=== PATIENT | male | born 1935 | race Caucasian/White ===

== ENCOUNTER 2017-10-29 08:00 | Outpatient (RCR) | payer MEDICARE, SELFPAY ==
--- NOTE | 2017-10-01 09:33 | HMH.PTOPEV ---
Rehab Outpatient Evaluation Rehab OP Evaluation Start: 10/01/17 08:34 Freq: Status: Active Protocol: Document 10/01/17 08:34 DASHAMIRIAM (Rec: 10/01/17 09:32 LOWELLHORTENCIA [id number]) Electronically Signed By Clarke Sellers PT 10/01/17 08:34 Outpatient Therapy Subjective History Subjective History This is the initial Physical Therapy evaluation for Juve Rosas. Pt is an 82 y/o male referred to PT for c/o LBP and pain into BLE. Pt rep orts pain began ~ 2 wks ago. Pt reports he was moving a large TV anfd its weight almost brought him to his knees . Pt reports he started having pain the next day. Pt reports no pain while sitting but difficulty standing straight and being on feet. Chief Complaint Pain Stiff Paresthesia Weakness Symptom Type Ache Throb Sharp Burning Numbness Symptoms Relieved By Rest/Positioning Symptoms Aggravated By Standing Physical Activity Walking Prior Functional Limitations None Current Functional Limitations Standing Recreation Activity Walking Symptom Description Intermittent Activity Dependent Level of pain today (0-10) 0 Pain scale - at its best (0-10) 0 Pain scale - at its worst (0-10) 8 Lumbopelvic Eval Posture Thoracic Spine Posture Standing Position Increased Kyphosis Lumbar Spine Posture Standing Position Flattened Assistive device Assistive Devices None / NA Palapation tenderness bilateral thoracic spinal tenderness No lumbar spinal tenderness No paraspinal tenderness No buttock tenderness No Range of Motion Lumbar Spine Active Flexion Range of 95 Motion (degrees) Lumbar Spine Active Extension Range of 10 w/ pain Motion (degrees) Left Lumbar Spine Lateral Flexion Active 20 Range of Motion (degrees) Right Lumbar Spine Lateral Flexion 20 Active Range of Motion (degrees) Lumbar Spine ROM Reason Not Measured Within Functional Limits Special Tests Lumbar Spine Screen Positive Forwar
== END 2017-10-29 08:01 | disposition home or self-care (01) ==
LOC: PT 08:00
PROVIDERS: Family Provider Nurse Practitioner; Visit Provider Family Medicine
DX: M48.062 Spinal stenosis, lumbar region with neurogenic claudication (principal)
CPT/HCPCS: 97010; 97014; 97110; 97140; G0283

== ENCOUNTER → 2017-11-08 15:15 | Outpatient (CLI) | payer MEDICARE, SELFPAY ==
--- NOTE | 2017-11-08 15:18 | MR_ITS ---
MR lumbar spine wo con, MR 3-d myelogram/MRCP HISTORY: PT states low back pain X3 weeks. Bilateral Leg pain, numbness and tingling. ITS.REASON: LUMBAR STENOSIS WITH NEUROGENIC CLAUDIATION ORDERING PHYSICIAN: Andriy Ludwig MD PATIENT AGE: 82 years TECHNIQUE: Standard multiplanar multiecho sequences are performed without contrast. 3-D MIP and myelographic images are also rendered and reviewed FINDINGS: There is normal alignment. The spinal cord ends at the L1 level. T11-T12, T12-L1 have an unremarkable appearance. L1-L2: Mild degenerative disc disease. L2-L3: Mild degenerative disc disease with minimal bulging disc. L3-L4: Mild degenerative disc disease. L4-L5: There is mild concentric bulging disc. There is associated facet and ligamentum hypertrophy with resultant canal stenosis with canal measuring 6 mm in transverse dimension. There is severe bilateral lateral recess and moderate foraminal narrowing. A small amount fluid is present within the facet joint. L5-S1: Degenerative disc disease. No disc herniation. IMPRESSION: Severe canal stenosis at L4-L5 secondary to mild bulging disc and severe facet and ligamentum hypertrophy with severe bilateral lateral recess and moderate foraminal narrowing
== END ==
PROVIDERS: Family Provider Nurse Practitioner; PCP Family Medicine; Visit Provider Family Medicine
DX: M48.062 Spinal stenosis, lumbar region with neurogenic claudication (principal)
CPT/HCPCS: 72148; 76376

== ENCOUNTER → 2017-12-28 06:18 | Outpatient (CLI) | payer MEDICARE, SELFPAY ==
--- NOTE | 2017-12-28 06:25 | XR_ITS ---
XR chest 2V HISTORY: ITS.REASON: BRONCHITIS ORDERING PHYSICIAN: Nilsa Pantoja PATIENT AGE: 82 years COMPARISON: 02/13/2016 FINDINGS: Prior CABG with borderline cardiomegaly. No lobar consolidation or collapse. Lungs are clear. No acute bony anomalies. IMPRESSION: Prior CABG with cardiomegaly. No change with no acute finding
== END ==
PROVIDERS: PCP Nurse Practitioner; Visit Provider Nurse Practitioner
DX: J40 Bronchitis, not specified as acute or chronic (principal)
CPT/HCPCS: 71046

== ENCOUNTER 2018-01-07 21:06 | Inpatient (IN) ==
[2018-01-07 21:39] LABS: Basophils % 0.1 % (0.1-2.0); Eosinophils # 0.1 K/mm3 (0.0-0.4); Eosinophils % 0.3 % (0.1-12.0); Hemoglobin 12.8 g/dL (14.1-18.0); Lymphocytes # 1.2 K/mm3 (0.7-4.5); Lymphocytes % 6.1 K/mm3 (10-50); Mean Corpuscular HGB Conc 31.3 g/dL (31.8-35.4); Mean Corpuscular Volume 99.1 fl (80-94); Mean Platelet Volume 7.8 fl (7.4-10.4); Monocytes # 0.7 K/mm3 (0.1-1.0); Monocytes % 3.5 % (1.7-9.3); Platelet Count 220 K/mm3 (142-424); Red Blood Count 4.13 M/mm3 (4.60-6.20); Red Cell Distribution Width 15.6 % (11.5-17.5)
[2018-01-07 22:11] LABS: Alanine Aminotransferase 48 U/L (12-78); Albumin Level 3.5 gm/dL (3.4-5.0); Albumin/Globulin Ratio 1.1 (1.1-1.8); Alkaline Phosphatase 46 U/L (46-116); Anion Gap 15.9 mEq/L (5-15); Aspartate Amino Transferase 27 U/L (15-37); Bilirubin,Total 0.7 mg/dL (0.2-1.0); Calcium 8.3 mg/dL (8.5-10.1); Carbon Dioxide 27 mmol/L (21.0-32.0); Chloride 99 mmol/L (98-107); Creatine Kinase 119 U/L (39-308); Globulin 3.3 gm/dl (1.3-3.2); Glucose 122 mg/dL (74-106); Potassium 3.9 mmoL/L (3.5-5.1); Sodium 138 mmol/L (136-145); Total Protein,Serum 6.8 gm/dL (6.4-8.2)
[2018-01-07 22:18] LABS: Blood Urea Nitrogen 100 mg/dL (7-18)
[2018-01-07 22:33] LABS: Microscopic, Urine URINE MICROSCOPIC (MICROSCOPIC)
[2018-01-07 22:36] LABS: Appearance,Urine CLEAR (Clear); Bilirubin,Urine Negative (Negative); Blood, Urine Negative (Negative); Color,Urine YELLOW (Yellow); Glucose,Urine (UA) Negative (Negative); Ketones,Urine Negative (Negative); Leukocyte Esterase,Urine Negative (Negative); Protein,Urine Negative (Negative); Urobilinogen,Urine 0.2 EU/dl (0.2)
--- NOTE | 2018-01-07 22:46 | Emergency Department Note ---
ED Disposition Clinical Impression: RBBB, Septic shock CAP (community acquired pneumonia) Qualifiers: Laterality: left Lung location: lower lobe of lung Qualified Code(s): J18.1 - Lobar pneumonia, unspecified organism Renal failure Qualifiers: Renal failure chronicity: acute on chronic Acute renal failure type: unspecified Chronic kidney disease stage: unspecified stage Qualified Code(s): N17.9 - Acute kidney failure, unspecified; N18.9 - Chronic kidney disease, unspecified Disposition: Admitted As Inpatient Condition on Discharge: Serious - Critical Care Critical Care Time: No Attestation: On 01/07/18, the high probability of a clinically significant, sudden or life threatening deterioration of the following system(s) required my full and direct attention, intervention and personal management. The time I documented below is in addition to time spent performing reported procedures but includes the following listed in this critical care notation. Medical Decision Making - Medical Records Medical records reviewed: Yes: I reviewed the patient's medical records. - Maximus Inquiry Pt receiving controlled substance: No Vital Signs: 01/07/18 21:07 01/07/18 21:16 01/07/18 21:37 Temperature 98.9 F Temperature Source Oral Pulse Rate [Right Radial] 94 H 117 H 99 H Respiratory Rate 18 20 18 Blood Pressure [Right Arm] 119/78 129/71 101/60 Blood Pressure Mean [Right Arm] 91 90 73 Blood Pressure Position [Right Arm] 02 Sat by Pulse Oximetry 93 L 91 L 94 L Oxygen Delivery Method Room Air 01/07/18 22:07 01/07/18 22:37 01/07/18 22:45 Temperature Temperature Source Pulse Rate [Right Radial] 113 H 104 H 109 H Respiratory Rate 20 18 20 Blood Pressure [Right Arm] 94/49 88/49 85/45 Blood Pressure Mean [Right Arm] 64 62 58 Blood Pressure Position [Right Arm] Sitting 02 Sat by Pulse Oximetry 94 L 93 L 93 L Oxygen Delivery Method Room Air - Lab Data Lab results reviewed: Yes: I reviewed the patient's lab results. Lab Results 01/07/18 21:25: WBC 20.0 H, RBC 4.13 L, Hgb 12.8 L, Hct 41.0 L, MCV 99.1 H, MCH 31.0, MCHC 31.3 L, RDW 15.6, Plt Count 220, MPV 7.8, Neut % (Auto) 90.0 H, Lymph % (Auto) 6.1 L, [place] % (Auto) 3.5, Eos % (Auto) 0.3, Baso % (Auto) 0.1, Neut # (Auto) 18.0 H, Lymph # (Auto) 1.2, [place] # (Auto) 0.7, Eos # (Auto) 0.1, Baso # (Auto) 0.0, Total Counted 100, Neutrophils % (Manual) 85 H, Lymphocytes % (Manual) 15, Platelet Estimate Normal, RBC Morphology Not Reportable, Anisocytosis 1+ 01/07/18 21:25: Sodium 138, Potassium 3.9, Chloride 99, Carbon Dioxide 27, Anion Gap 15.9 H, BUN 100 H, Creatinine 3.34 H, Estimated Creat Clear 23, Estimated GFR 18 L*, Est GFR ( Amer) 22 L, Glucose 122 H, Calcium 8.3 L, Total Bilirubin 0.7, AST 27, ALT 48, Alkaline Phosphatase 46, Total Creatine Kinase 119, CK-MB (CK-2) 3.6, CK-MB (CK-2) Rel Index 3.0, Troponin I < 0.02, Total Protein 6.8, Albumin 3.5, Globulin 3.3 H, Albumin/Globulin Ratio 1.1 01/07/18 21:25: Lactic Acid 3.6 H 01/07/18 21:25: POC Glucose 118 H 01/07/18 22:30: Urine Color Yellow, Urine Appearance Clear, Urine pH 5.0, Ur Specific [place] 1.020, Urine Protein Negative, Urine Glucose (UA) Negative, Urine Ketones Negative, Urine Blood Negative, Urine Nitrate Negative, Urine Bilirubin Negative, Urine Urobilinogen 0.2, Ur Leukocyte Esterase Negative, Urine WBC 3-5, Ur Squamous Epith Cells 3-5, Urine Bacteria 1+ Result diagrams: 01/07/18 21:25 01/07/18 21:25 Orders (Tests/Meds): ED MEDICATIONS Generic Name Dose Route Start Last Admin Trade Name Freq PRN Reason Stop Dose Admin Sodium Chloride 2,760 mls @ 1,380 mls/hr 01/07/18 22:38 01/07/18 22:43 Sod Chlor 0.9% 1000ml Bag 30 ml/kg infuse over 2 hr (2760 ml) 01/08/18 00: 37 1,380 mls/hr IV Administration .Q2H ONE Azithromycin 500 mg/ Sodium 250 mls @ 250 mls/hr 01/07/18 23:00 Chloride IV 01/21/18 22:59 Q24H TJ Protocol Ceftriaxone Sodium 1 gm/ 50 mls @ 100 mls/hr 01/07/18 23:00 01/07/18 22:50 Sodium Chloride IV 01/21/18 22:59 100 mls/hr Q24H TJ Administration Protocol ORDERS Category Date Time Status XR chest 2V Stat Exams 01/07/18 21:26 Taken Blood Culture Stat Micro 01/07/18 21:37 Ordered - Radiology Data #1 Image(s): Chest Image Reviewed: Yes I reviewed the patient's radiology image Preliminary Findings: Abnormal (changes lt base ) - ECG Data Tracing #1 I reviewed this ECG and interpreted as documented below: Arrhythmias present: sinus tach Ischemic changes: non-specific ST-T wave changes Conduction abnormalities present: RBBB ECG compared to prior tracings: this ECG reveals significant changes - Tissue Perfus/Sepsis Re-Eval Reperfusion Exam Performed: Yes Date Performed: 01/07/18 Time Performed: 23:10 Sepsis Follow-Up: Yes: Respiratory exam, Cadiovascular exam, Capillary refill, Peripheral pulse strength, Skin exam Resp/SOB HPI - General Chief Complaint: Altered Mental Status Stated Complaint: Chills, SOA Time Seen by Provider: 01/07/18 22:37 Mode of Arrival: Wheelchair Limitations: Physical Limitations Description of Symptoms (Recalled from ER Triage Doc. by RN): pt recently dx with pneumonia. states that when she got home today that patient was "nonresponsive." states that he has been on a lot of pain meds recently that "he is not used to due to back pain. states the patient was in his chair and he was breathing labored and when she tried to wake him up he would not respond. 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 and episode of sob and dec level of responsiveness for a few minutes recently finished levofloxin for cap- he has no chest pain but family report recently abn renal function tests MD Complaint: shortness of breath, cough Onset (ago): hour(s) Context: recent illness Severity: moderate Relieving factors: nothing Known history of: diabetes, recurrent pneumonia Associated symptoms: cough, syncope Treatment prior to arrival: none - Related Data Home oxygen amount: none Home Medications Medication Instructions Recorded Confirmed Allopurinol [Allopurinol 300mg 300 mg PO DAILY 01/07/18 01/07/18 tablet] Aspirin [Aspir 81] 81 mg PO DAILY 01/07/18 01/07/18 Cholecalciferol (Vitamin D3) 2,000 unit PO DAILY 01/07/18 01/07/18 [Vitamin D3 1,000 Unit Cap] Enalapril Maleate 40 mg PO DAILY 01/07/18 01/07/18 Furosemide [Furosemide 20mg Tab] 40 mg PO DAILY 01/07/18 01/07/18 Gabapentin [Gabapentin 100mg Cap] 100 mg PO TID 01/07/18 01/07/18 Glucosamine/D3/Boswellia Caroline 1 each PO DAILY 01/07/18 01/07/18 [Osteo Bi-Flex Caplet] Labetalol HCl [Normodyne 100mg 400 mg PO DAILY 01/07/18 01/07/18 tablet] Pravastatin Sodium [Pravachol] 40 mg PO DAILY 01/07/18 01/07/18 Tramadol HCl [Ultram Take Home 50 mg PO BIDP PRN 01/07/18 01/07/18 Pack 50mg (10)] hydroCHLOROthiazide 12.5 mg PO DAILY 01/07/18 01/07/18 [Hydrochlorothiazide 12.5mg Tab] Allergies Allergy/AdvReac Type Severity Reaction Status Date / Time No Known Allergies Allergy Verified 01/07/18 21:25 [facility] History I have reviewed the patient's past medical history: Yes Medical History: Reports:: Diabetes Mellitus Type 2 Denies:: Cancer, MRSA Amputation: No Fractures: No - Social History Smoking Status: Former smoker Alcohol Intake: never - Psychiatric History Expresses thoughts of harming self/others: None Suicide Plan Description: No Plan ROS Obtained: Yes All systems reviewed & no additional complaints - Constitutional Constitutional: Denies fever(s) - Eyes Eyes: Denies change in vision - ENT Ears, Nose, Mouth, and Throat: Denies sore throat - Cardiovascular Cardiovascular: Denies chest pain, Reports dyspnea - Respiratory Respiratory: Yes cough, No coughing up blood - Gastrointestinal Gastrointestingal: Denies: abdominal pain - Genitourinary Male Genitourinary: Denies hematuria - Musculoskeletal Musculoskeletal: Denies joint pain, Denies joint swelling - Integumentary/Breasts Skin/Breast: Denies rash - Neurologic Neurologic: Reports dizziness, Denies headache(s), Denies seizure-like activity Physical Exam - General General appearance: alert, in no apparent distress - Head Head exam: normocephalic - Eye Eye exam: Present: PERRL, EOMI. Absent: scleral icterus - ENT ENT exam: Present: mucous membranes dry - Neck Neck exam: Present: trachea midline - Respiratory Respiratory exam: Present: other (bilat rhonchi and dec bs bilat ). Absent: respiratory distress - Cardiovascular Cardiovascular exam: Present: regular rate, systolic murmur, +S4 - Abdominal Exam Abdominal exam: Present: soft - Extremities Exam Extremities exam: Present: pedal edema. Absent: calf tenderness - Neurological Exam Neurological exam: Present: alert, oriented X3, CN II-XII intact - Psychiatric Psychiatric exam: Present: normal affect - Skin Skin exam: Absent: rash
[2018-01-07 22:54] LABS: Lymphocytes % 15 % (10-50); Neutrophils % 85 % (42-76); Total Cells Counted 100
[2018-01-07 22:55] LABS: Anisocytosis 1+
[2018-01-07 23:00] LABS: Bacteria,Urine 1+ /lpf
[2018-01-08 06:02] LABS: Basophils % 0.1 % (0.1-2.0); Eosinophils % 0.2 % (0.1-12.0); Hematocrit 36.2 % (42.0-52.0); Lymphocytes # 1.2 K/mm3 (0.7-4.5); Lymphocytes % 5.6 K/mm3 (10-50); Mean Corpuscular HGB Conc 30.6 g/dL (31.8-35.4); Mean Corpuscular Hemoglobin 30.4 pg (27.0-31.2); Mean Corpuscular Volume 99.3 fl (80-94); Mean Platelet Volume 7.8 fl (7.4-10.4); Monocytes # 0.9 K/mm3 (0.1-1.0); Monocytes % 4.1 % (1.7-9.3); Neutrophils # 19.4 K/mm3 (1.8-7.8); Platelet Count 175 K/mm3 (142-424); Red Blood Count 3.65 M/mm3 (4.60-6.20); White Blood Count 21.5 K/mm3 (4.8-10.8)
[2018-01-08 06:22] LABS: Hemoglobin 11.2 g/dL (14.1-18.0)
[2018-01-08 06:26] LABS: Anion Gap 12.9 mEq/L (5-15); Calcium 7.7 mg/dL (8.5-10.1); Potassium 3.9 mmoL/L (3.5-5.1)
--- NOTE | 2018-01-08 07:24 | History & Physical Report ---
*Admission Date: 01/07/18 *Chief complaint: Heavy breathing, altered level of consciousness *History of present illness: 82-year-old male brought to the emergency department by his yesterday evening when he was noticed at home to be breathing rather heavily with an altered level of consciousness. Patient was sleeping but his thought he was having difficulty breathing. She noticed some abnormal movements but does not believe these were seizures. She was able to awaken him and he walks to their truck under his own power. He was brought to the emergency department for further workup. Patient admitted to episodes of shortness of breath and has been treated for pneumonia recently. His white blood cell count was elevated with significant change in renal function and chest x-ray suspicious for left lower lobe infiltrate. Patient was admitted on IV fluids and IV antibiotics. This morning he states "I am ready to go". He denies any shortness of breath this morning and has rested well overnight without supplemental oxygen. Despite his recent illness patient has been exercising here at the [employer] [place] on a daily basis. He is currently also battling lumbar spinal stenosis for which he takes both gabapentin and tramadol. Previously he was taking excessively large doses of NSAIDs but it is no longer doing that. [facility] History I have reviewed the patient's past medical history: Yes Medical History: Reports:: Arrhythmia, Diabetes Mellitus Type 2, Heart Murmur, Hyperlipidemia, Hypertension, Myocardial Infarction Denies:: Cancer, MRSA Other Medical History: Reports: Arthritis Other Surgeries: Yes: Angiogram, CABG, Cardiac Catheterization, Cardiac Surgery , Coronary Stent, Open Heart Surgery Amputation: No Fractures: No - *Social History Educational Level: Completed High School Smoking Status: Former smoker Tobacco Type: cigarettes Smoking End Date: Alcohol Intake: never Occupational Status: retired Housing: house Household Members: spouse - Psychiatric History Expresses thoughts of harming self/others: None Suicide Plan Description: No Plan *Family Hx:: Cancer, Coronary Artery Disease, Diabetes, Heart Attack, Hyperlipidemia, Hypertension Review of Systems - Review of Systems Review of systems:: pertinent systems reviewed and negative unless documented below - Constitutional Denies anorexia, Denies body ache(s), Denies chills, Denies fever(s) - *Cardiovascular Denies chest pain, Denies chest pain at rest - *Respiratory Reports cough, Reports shortness of breath - *Neurologic Reports dizziness, Denies headache(s), Denies seizure-like activity Meds Home Medications Medication Instructions Recorded Confirmed Type Allopurinol [Allopurinol 300mg 300 mg PO DAILY 01/07/18 01/07/18 History tablet] Aspirin [Aspir 81] 81 mg PO DAILY 01/07/18 01/07/18 History Cholecalciferol (Vitamin D3) 2,000 unit PO DAILY 01/07/18 01/07/18 History [Vitamin D3 1,000 Unit Cap] Enalapril Maleate 40 mg PO DAILY 01/07/18 01/07/18 History Furosemide [Furosemide 20mg Tab] 20 mg PO BID 01/07/18 01/08/18 History Gabapentin [Gabapentin 100mg Cap] 100 mg PO TID 01/07/18 01/08/18 History Glucosamine/D3/Boswellia Caroline 2 each PO DAILY 01/07/18 01/07/18 History [Osteo Bi-Flex Caplet] Labetalol HCl [Normodyne 100mg 200 mg PO BID 01/07/18 01/08/18 History tablet] Pravastatin Sodium [Pravachol] 40 mg PO DAILY 01/07/18 01/07/18 History Tramadol HCl [Ultram Take Home 50 mg PO BIDP PRN 01/07/18 01/08/18 History Pack 50mg (10)] hydroCHLOROthiazide 12.5 mg PO DAILY 01/07/18 01/08/18 History [Hydrochlorothiazide 12.5mg Tab] Allergies Allergy/AdvReac Type Severity Reaction Status Date / Time No Known Allergies Allergy Verified 01/07/18 21:25 Exam Vital signs and Labs for Last 24 Hours: Temp Pulse Resp BP Pulse Ox 98.6 F 94 H 18 112/64 100 01/08/18 04:00 01/08/18 04:00 01/08/18 04:00 01/08/18 04:00 01/08/18 04:00 Laboratory Results - last 24 hr 01/07/18 21:25: WBC 20.0 H, RBC 4.13 L, Hgb 12.8 L, Hct 41.0 L, MCV 99.1 H, MCH 31.0, MCHC 31.3 L, RDW 15.6, Plt Count 220, MPV 7.8, Neut % (Auto) 90.0 H, Lymph % (Auto) 6.1 L, [place] % (Auto) 3.5, Eos % (Auto) 0.3, Baso % (Auto) 0.1, Neut # (Auto) 18.0 H, Lymph # (Auto) 1.2, [place] # (Auto) 0.7, Eos # (Auto) 0.1, Baso # (Auto) 0.0, Total Counted 100, Neutrophils % (Manual) 85 H, Lymphocytes % (Manual) 15, Platelet Estimate Normal, RBC Morphology Not Reportable, Anisocytosis 1+ 01/07/18 21:25: Sodium 138, Potassium 3.9, Chloride 99, Carbon Dioxide 27, Anion Gap 15.9 H, BUN 100 H, Creatinine 3.34 H, Estimated Creat Clear 23, Estimated GFR 18 L*, Est GFR ( Amer) 22 L, Glucose 122 H, Calcium 8.3 L, Total Bilirubin 0.7, AST 27, ALT 48, Alkaline Phosphatase 46, Total Creatine Kinase 119, CK-MB (CK-2) 3.6, CK-MB (CK-2) Rel Index 3.0, Troponin I < 0.02, Total Protein 6.8, Albumin 3.5, Globulin 3.3 H, Albumin/Globulin Ratio 1.1 01/07/18 21:25: Lactic Acid 3.6 H 01/07/18 21:25: POC Glucose 118 H 01/07/18 22:30: Urine Color Yellow, Urine Appearance Clear, Urine pH 5.0, Ur Specific [place] 1.020, Urine Protein Negative, Urine Glucose (UA) Negative, Urine Ketones Negative, Urine Blood Negative, Urine Nitrate Negative, Urine Bilirubin Negative, Urine Urobilinogen 0.2, Ur Leukocyte Esterase Negative, Urine WBC 3-5, Ur Squamous Epith Cells 3-5, Urine Bacteria 1+ 01/08/18 00:00: Troponin I 0.02 01/08/18 02:05: Troponin I 0.03 01/08/18 02:05: Lactic Acid Fup @ 4Hr 1.0 01/08/18 05:30: Troponin I 0.03 01/08/18 05:30: WBC 21.5 H*, RBC 3.65 L, Hgb 11.2 L D, Hct 36.2 L, MCV 99.3 H, MCH 30.4, MCHC 30.6 L, RDW 16.0, Plt Count 175, MPV 7.8, Neut % (Auto) 90.0 H, Lymph % (Auto) 5.6 L, [place] % (Auto) 4.1, Eos % (Auto) 0.2, Baso % (Auto) 0.1, Neut # (Auto) 19.4 H, Lymph # (Auto) 1.2, [place] # (Auto) 0.9, Eos # (Auto) 0.0, Baso # (Auto) 0.0 01/08/18 05:30: Sodium 140, Potassium 3.9, Chloride 105, Carbon Dioxide 26, Anion Gap 12.9, BUN 94 H, Creatinine 2.93 H, Estimated Creat Clear 25, Estimated GFR 21 L, Est GFR ( Amer) 25 L, Glucose 150 H D, Calcium 7.7 L 01/08/18 06:09: POC Glucose 139 H I & O for Last 24 hours: Intake & Output 01/05/18 01/06/18 01/07/18 01/08/18 11:59 11:59 11:59 11:59 Intake Total 800 / 800 Output Total 600 / 600 Balance 200 / 200 Weight 194 lb 2.013 oz Narrative: He appears comfortable and in no distress and appears at baseline. HEENT exam is grossly normal. Neck is without lymphadenopathy. Lungs have expiratory rhonchi. Heart has a regular rate and rhythm. Abdomen is obese and soft without tenderness. Extremities are warm to the touch. Skin is without rashes. H&P: Result - Labs Labs: Short CBC 01/07/18 01/08/18 Range/Units 21:25 05:30 WBC 20.0 H 21.5 H* (4.8-10.8) K/mm3 Hgb 12.8 L 11.2 L D (14.1-18.0) g/dL Hct 41.0 L 36.2 L (42.0-52.0) % Plt Count 220 175 (142-424) K/mm3 BMP 01/07/18 01/08/18 21:25 05:30 Sodium 138 140 Potassium 3.9 3.9 Chloride 99 105 Carbon Dioxide 27 26 BUN 100 H 94 H Creatinine 3.34 H 2.93 H Glucose 122 H 150 H D Calcium 8.3 L 7.7 L Cardiac Enzymes 01/07/18 01/08/18 01/08/18 Range/Units 21:25 00:00 02:05 Total Creatine Kinase 119 (39-308) U/L CK-MB (CK-2) 3.6 (0.0-3.6) ng/ml Troponin I < 0.02 0.02 0.03 (0.00-0.06) ng/ml 01/08/18 Range/Units 05:30 Total Creatine Kinase (39-308) U/L CK-MB (CK-2) (0.0-3.6) ng/ml Troponin I 0.03 (0.00-0.06) ng/ml Liver Function 01/07/18 Range/Units 21:25 Total Bilirubin 0.7 (0.2-1.0) mg/dL AST 27 (15-37) U/L ALT 48 (12-78) U/L Alkaline Phosphatase 46 (46-116) U/L Albumin 3.5 (3.4-5.0) gm/dL Urine 01/07/18 Range/Units 22:30 Urine Color Yellow (Yellow) Urine Appearance Clear (Clear) Urine pH 5.0 (5.0-8.5) Ur Specific [place] 1.020 (1.005-1.030) Urine Protein Negative (Negative) Urine Glucose (UA) Negative (Negative) Assessment and Plan (1) Acute kidney injury Current visit: Yes Status: Acute Category: Medical Code(s): N17.9 - Acute kidney failure, unspecified (2) CAP (community acquired pneumonia) Current visit: Yes Status: Acute Qualifiers: Laterality: left Lung location: lower lobe of lung Qualified Code(s): J18.1 - Lobar pneumonia, unspecified organism Category: Medical Code(s): J18.9 - Pneumonia, unspecified organism - Assessment and plan all Dx Assessment and Plan for all problems:: 1. Admit patient for antibiotics and IV fluids. Follow CBC and BMP daily. Hold all nephrotoxic medications including his enalapril and hydrochlorothiazide. Continue use of gabapentin and tramadol for pain control. Patient is allowed to ambulate as needed.
--- NOTE | 2018-01-08 07:39 | Pharmacy Consult Notes ---
[facility] Pharmacy VTE Monitoring - Patient Demographics Admission date: 01/07/18 Report Date: 01/08/18 Time: 07:39 Allergies/Adverse Reactions: Patient Allergies No Known Allergies Allergy (Verified 01/07/18 21:25) Height: 1.63 m Weight: 88.054 kg Patient Problems: Current Active Problems CAP (community acquired pneumonia) (Acute) Renal failure (Acute) RBBB (Acute) Septic shock (Acute) Acute kidney injury (Acute) - VTE Risk Labs: VTE Related Lab Results Hgb 11.2 g/dL (14.1-18.0) L D 01/08/18 05:30 Hct 36.2 % (42.0-52.0) L 01/08/18 05:30 Plt Count 175 K/mm3 (142-424) 01/08/18 05:30 BUN 94 mg/dL (7-18) H 01/08/18 05:30 Creatinine 2.93 mg/dL (0.70-1.30) H 01/08/18 05:30 Estimated Creat Clear 25 mL/min (0-300) 01/08/18 05:30 VTE Score: 8 VTE Risk Level: Moderate Risk - Prophylaxis VTE Prophylaxis Ordered?: Yes Types of VTE Prophylaxis: TEDS Knee High Location of Applied Device: Bilateral Lower Extremeties - VTE Diagnosis Confirmed Treatment or plan recommended: Continue Current Treatment
[2018-01-08 08:12] LABS: Eosinophils % 1 % (0-3); Lymphocytes % 7 % (10-50); Neutrophils % 92 % (42-76); Total Cells Counted 100
[2018-01-08 08:14] LABS: RBC Morphology Normal
--- NOTE | 2018-01-08 21:20 | Cardiology Report ---
PROCEDURE: 2-D M-mode and color Doppler study INDICATIONS FOR THE TEST: Chest pain COPD Heart Murmur+ Tobacco Smoking Palpitations Fatigue Syncope Edema Hypertension+Diabetes Mellitus+ Rheumatic Fever SOB+OROZCO Obesity+Hyperlipidemia+ Family History HD Additional History CABG, STENT, PNEUMONIA PATIENT INFORMATION HEIGHT: 66 WEIGHT:203 GENDER: Male B/P:101/60 2-D/M-MODE INTERPRETATION: 2-D MEASUREMENTS OBSERVED VALUES IN CMS Right Ventricular Dimension (RVDd) 2.8 Interventricular Septum (Thickness)(IVsd) 1.3 Left Ventricular Internal Dimensions(LVIDd) 5.0 Left Ventricular Posterior Wall (Thickness)(LVPWd) 0.8 Aortic Root 3.0 Aortic Cusp Separation 1.8 Left Atrial Dimensions (LAD) 4.0 2D 1. Left atrium is mildly enlarged, left ventricle is normal size, mild concentric left ventricular hypertrophy, visually estimated ejection fraction 50% with no obvious regional wall motion abnormality. 2. The right atrium and right ventricle are mildly enlarged with normal contractility. 3. The aortic valve is minimally thickened and fibrosed. 4. The mitral and tricuspid valve leaflets are minimally thickened. 5. The pulmonic valve is poorly visualized. 6. No significant pericardial effusion noted. DOPPLER INTERROGATION: Doppler interrogation of the aortic, mitral and tricuspid valvular presence of mild mitral and tricuspid regurgitation, tricuspid and jet velocity is insufficient for calculation of the right ventricular systolic pressure, mild aortic insufficiency is also seen. Diastolic parameters are inconclusive CONCLUSION: 1. Mildly enlarged left atrium, normal left ventricular size, visually estimated ejection fraction of 50% with no obvious regional wall motion abnormality. 2. Mildly enlarged right atrium and right ventricle, contractility of the right ventricle is normal. 3. Mild aortic, mild mitral and tricuspid regurgitation 4. No significant pericardial effusion noted.
[2018-01-09 06:38] LABS: Basophils % 0.1 % (0.1-2.0); Eosinophils # 0.2 K/mm3 (0.0-0.4); Eosinophils % 1.1 % (0.1-12.0); Hematocrit 34.8 % (42.0-52.0); Hemoglobin 10.7 g/dL (14.1-18.0); Lymphocytes % 6.7 K/mm3 (10-50); Mean Corpuscular HGB Conc 30.6 g/dL (31.8-35.4); Mean Corpuscular Hemoglobin 30.5 pg (27.0-31.2); Mean Corpuscular Volume 99.4 fl (80-94); Mean Platelet Volume 7.6 fl (7.4-10.4); Monocytes # 0.7 K/mm3 (0.1-1.0); Monocytes % 4.5 % (1.7-9.3); Neutrophils % 87.5 % (37.0-80.0); Platelet Count 165 K/mm3 (142-424); White Blood Count 14.9 K/mm3 (4.8-10.8)
[2018-01-09 07:19] LABS: Anion Gap 12.3 mEq/L (5-15); Calcium 7.8 mg/dL (8.5-10.1); Potassium 3.3 mmoL/L (3.5-5.1)
--- NOTE | 2018-01-09 07:39 | Discharge Summary ---
General - General Admission date:: 01/07/18 Discharge date: 01/09/18 HPI HPI: 82-year-old male brought to the emergency department by his yesterday evening when he was noticed at home to be breathing rather heavily with an altered level of consciousness. Patient was sleeping but his thought he was having difficulty breathing. She noticed some abnormal movements but does not believe these were seizures. She was able to awaken him and he walks to their truck under his own power. He was brought to the emergency department for further workup. Patient admitted to episodes of shortness of breath and has been treated for pneumonia recently. His white blood cell count was elevated with significant change in renal function and chest x-ray suspicious for left lower lobe infiltrate. Patient was admitted on IV fluids and IV antibiotics. This morning he states "I am ready to go". He denies any shortness of breath this morning and has rested well overnight without supplemental oxygen. Despite his recent illness patient has been exercising here at the [facility] on a daily basis. He is currently also battling lumbar spinal stenosis for which he takes both gabapentin and tramadol. Previously he was taking excessively large doses of NSAIDs but it is no longer doing that. Hospital Course Hospital Course: Patient was admitted and placed on Rocephin and azithromycin for per standard community acquired pneumonia protocol. Patient's white count trended down from 20,000-14,000 on the day of discharge. Chest x-ray was interpreted as chronic changes but no definite infiltrates. Lung exam did have expiratory rhonchi that improved over the course of hospitalization. At discharge he will be provided an inhaler for episodes of cough. Acute kidney injury was treated with fluid hydration intravenously and creatinine trended down from 3.6-1.68 on the day of discharge. Patient was discharged home on January 09 and will follow up in the office on January 11 at 130. Objective Vital signs: Temp Pulse Resp BP Pulse Ox 99.7 F H 84 14 144/83 91 L 01/09/18 04:00 01/09/18 04:00 01/09/18 04:00 01/09/18 04:00 01/09/18 04:00 Results Completed studies during hospitalization [Text1]: Laboratory Results - last 72 hr 01/07/18 01/07/18 01/07/18 21:25 21:25 21:25 WBC 20.0 H RBC 4.13 L Hgb 12.8 L Hct 41.0 L MCV 99.1 H MCH 31.0 MCHC 31.3 L RDW 15.6 Plt Count 220 MPV 7.8 Neut % (Auto) 90.0 H Lymph % (Auto) 6.1 L Lawrence % (Auto) 3.5 Eos % (Auto) 0.3 Baso % (Auto) 0.1 Neut # (Auto) 18.0 H Lymph # (Auto) 1.2 Lawrence # (Auto) 0.7 Eos # (Auto) 0.1 Baso # (Auto) 0.0 Total Counted 100 Neutrophils % (Manual) 85 H Lymphocytes % (Manual) 15 Eosinophils % (Manual) Platelet Estimate Normal RBC Morphology Not Reportable Anisocytosis 1+ Sodium 138 Potassium 3.9 Chloride 99 Carbon Dioxide 27 Anion Gap 15.9 H BUN 100 H Creatinine 3.34 H Estimated Creat Clear 23 Estimated GFR 18 L* Est GFR ( Amer) 22 L Glucose 122 H POC Glucose Lactic Acid 3.6 H Lactic Acid Fup @ 4Hr Calcium 8.3 L Total Bilirubin 0.7 AST 27 ALT 48 Alkaline Phosphatase 46 Total Creatine Kinase 119 CK-MB (CK-2) 3.6 CK-MB (CK-2) Rel Index 3.0 Troponin I < 0.02 Total Protein 6.8 Albumin 3.5 Globulin 3.3 H Albumin/Globulin Ratio 1.1 Urine Color Urine Appearance Urine pH Ur Specific [place] Urine Protein Urine Glucose (UA) Urine Ketones Urine Blood Urine Nitrate Urine Bilirubin Urine Urobilinogen Ur Leukocyte Esterase Urine WBC Ur Squamous Epith Cells Urine Bacteria 01/07/18 01/07/18 01/08/18 21:25 22:30 00:00 WBC RBC Hgb Hct MCV MCH MCHC RDW Plt Count MPV Neut % (Auto) Lymph % (Auto) Lawrence % (Auto) Eos % (Auto) Baso % (Auto) Neut # (Auto) Lymph # (Auto) [place] # (Auto) Eos # (Auto) Baso # (Auto) Total Counted Neutrophils % (Manual) Lymphocytes % (Manual) Eosinophils % (Manual) Platelet Estimate RBC Morphology Anisocytosis Sodium Potassium Chloride Carbon Dioxide Anion Gap BUN Creatinine Estimated Creat Clear Estimated GFR Est GFR ( Amer) Glucose POC Glucose 118 H Lactic Acid Lactic Acid Fup @ 4Hr Calcium Total Bilirubin AST ALT Alkaline Phosphatase Total Creatine Kinase CK-MB (CK-2) CK-MB (CK-2) Rel Index Troponin I 0.02 Total Protein Albumin Globulin Albumin/Globulin Ratio Urine Color Yellow Urine Appearance Clear Urine pH 5.0 Ur Specific [place] 1.020 Urine Protein Negative Urine Glucose (UA) Negative Urine Ketones Negative Urine Blood Negative Urine Nitrate Negative Urine Bilirubin Negative Urine Urobilinogen 0.2 Ur Leukocyte Esterase Negative Urine WBC 3-5 Ur Squamous Epith Cells 3-5 Urine Bacteria 1+ 01/08/18 01/08/18 01/08/18 02:05 02:05 05:30 WBC RBC Hgb Hct MCV MCH MCHC RDW Plt Count MPV Neut % (Auto) Lymph % (Auto) Lawrence % (Auto) Eos % (Auto) Baso % (Auto) Neut # (Auto) Lymph # (Auto) Lawrence # (Auto) Eos # (Auto) Baso # (Auto) Total Counted Neutrophils % (Manual) Lymphocytes % (Manual) Eosinophils % (Manual) Platelet Estimate RBC Morphology Anisocytosis Sodium Potassium Chloride Carbon Dioxide Anion Gap BUN Creatinine Estimated Creat Clear Estimated GFR Est GFR ( Amer) Glucose POC Glucose Lactic Acid Lactic Acid Fup @ 4Hr 1.0 Calcium Total Bilirubin AST ALT Alkaline Phosphatase Total Creatine Kinase CK-MB (CK-2) CK-MB (CK-2) Rel Index Troponin I 0.03 0.03 Total Protein Albumin Globulin Albumin/Globulin Ratio Urine Color Urine Appearance Urine pH Ur Specific [place] Urine Protein Urine Glucose (UA) Urine Ketones Urine Blood Urine Nitrate Urine Bilirubin Urine Urobilinogen Ur Leukocyte Esterase Urine WBC Ur Squamous Epith Cells Urine Bacteria 01/08/18 01/08/18 01/08/18 05:30 05:30 06:09 WBC 21.5 H* RBC 3.65 L Hgb 11.2 L D Hct 36.2 L MCV 99.3 H MCH 30.4 MCHC 30.6 L RDW 16.0 Plt Count 175 MPV 7.8 Neut % (Auto) 90.0 H Lymph % (Auto) 5.6 L Lawrence % (Auto) 4.1 Eos % (Auto) 0.2 Baso % (Auto) 0.1 Neut # (Auto) 19.4 H Lymph # (Auto) 1.2 Lawrence # (Auto) 0.9 Eos # (Auto) 0.0 Baso # (Auto) 0.0 Total Counted 100 Neutrophils % (Manual) 92 H Lymphocytes % (Manual) 7 L Eosinophils % (Manual) 1 Platelet Estimate Normal RBC Morphology Normal Anisocytosis Sodium 140 Potassium 3.9 Chloride 105 Carbon Dioxide 26 Anion Gap 12.9 BUN 94 H Creatinine 2.93 H Estimated Creat Clear 25 Estimated GFR 21 L Est GFR ( Amer) 25 L Glucose 150 H D POC Glucose 139 H Lactic Acid Lactic Acid Fup @ 4Hr Calcium 7.7 L Total Bilirubin AST ALT Alkaline Phosphatase Total Creatine Kinase CK-MB (CK-2) CK-MB (CK-2) Rel Index Troponin I Total Protein Albumin Globulin Albumin/Globulin Ratio Urine Color Urine Appearance Urine pH Ur Specific [place] Urine Protein Urine Glucose (UA) Urine Ketones Urine Blood Urine Nitrate Urine Bilirubin Urine Urobilinogen Ur Leukocyte Esterase Urine WBC Ur Squamous Epith Cells Urine Bacteria 01/08/18 01/08/18 01/08/18 11:05 16:45 21:05 WBC RBC Hgb Hct MCV MCH MCHC RDW Plt Count MPV Neut % (Auto) Lymph % (Auto) Lawrence % (Auto) Eos % (Auto) Baso % (Auto) Neut # (Auto) Lymph # (Auto) Lawrence # (Auto) Eos # (Auto) Baso # (Auto) Total Counted Neutrophils % (Manual) Lymphocytes % (Manual) Eosinophils % (Manual) Platelet Estimate RBC Morphology Anisocytosis Sodium Potassium Chloride Carbon Dioxide Anion Gap BUN Creatinine Estimated Creat Clear Estimated GFR Est GFR ( Amer) Glucose POC Glucose 146 H 189 H 142 H Lactic Acid Lactic Acid Fup @ 4Hr Calcium Total Bilirubin AST ALT Alkaline Phosphatase Total Creatine Kinase CK-MB (CK-2) CK-MB (CK-2) Rel Index Troponin I Total Protein Albumin Globulin Albumin/Globulin Ratio Urine Color Urine Appearance Urine pH Ur Specific [place] Urine Protein Urine Glucose (UA) Urine Ketones Urine Blood Urine Nitrate Urine Bilirubin Urine Urobilinogen Ur Leukocyte Esterase Urine WBC Ur Squamous Epith Cells Urine Bacteria 01/09/18 01/09/18 01/09/18 05:50 05:50 06:26 WBC 14.9 H D RBC 3.50 L Hgb 10.7 L Hct 34.8 L MCV 99.4 H MCH 30.5 MCHC 30.6 L RDW 16.0 Plt Count 165 MPV 7.6 Neut % (Auto) 87.5 H Lymph % (Auto) 6.7 L Lawrence % (Auto) 4.5 Eos % (Auto) 1.1 Baso % (Auto) 0.1 Neut # (Auto) 13.0 H Lymph # (Auto) 1.0 Lawrence # (Auto) 0.7 Eos # (Auto) 0.2 Baso # (Auto) 0.0 Total Counted Neutrophils % (Manual) Lymphocytes % (Manual) Eosinophils % (Manual) Platelet Estimate RBC Morphology Anisocytosis Sodium 144 Potassium 3.3 L Chloride 109 H Carbon Dioxide 26 Anion Gap 12.3 BUN 58 H D Creatinine 1.68 H D Estimated Creat Clear 44 Estimated GFR 40 L Est GFR ( Amer) 48 L D Glucose 141 H POC Glucose 126 H Lactic Acid Lactic Acid Fup @ 4Hr Calcium 7.8 L Total Bilirubin AST ALT Alkaline Phosphatase Total Creatine Kinase CK-MB (CK-2) CK-MB (CK-2) Rel Index Troponin I Total Protein Albumin Globulin Albumin/Globulin Ratio Urine Color Urine Appearance Urine pH Ur Specific [place] Urine Protein Urine Glucose (UA) Urine Ketones Urine Blood Urine Nitrate Urine Bilirubin Urine Urobilinogen Ur Leukocyte Esterase Urine WBC Ur Squamous Epith Cells Urine Bacteria Labs on day of discharge: Labs from last 24 hours 01/09/18 01/09/18 01/09/18 06:26 05:50 05:50 WBC 14.9 H D RBC 3.50 L Hgb 10.7 L Hct 34.8 L MCV 99.4 H MCH 30.5 MCHC 30.6 L RDW 16.0 Plt Count 165 MPV 7.6 Neut % (Auto) 87.5 H Lymph % (Auto) 6.7 L Lawrence % (Auto) 4.5 Eos % (Auto) 1.1 Baso % (Auto) 0.1 Neut # (Auto) 13.0 H Lymph # (Auto) 1.0 Lawrence # (Auto) 0.7 Eos # (Auto) 0.2 Baso # (Auto) 0.0 Total Counted Neutrophils % (Manual) Lymphocytes % (Manual) Eosinophils % (Manual) Platelet Estimate RBC Morphology Sodium 144 Potassium 3.3 L Chloride 109 H Carbon Dioxide 26 Anion Gap 12.3 BUN 58 H D Creatinine 1.68 H D Estimated Creat Clear 44 Estimated GFR 40 L Est GFR ( Amer) 48 L D Glucose 141 H POC Glucose 126 H Calcium 7.8 L 01/08/18 01/08/18 01/08/18 21:05 16:45 11:05 WBC RBC Hgb Hct MCV MCH MCHC RDW Plt Count MPV Neut % (Auto) Lymph % (Auto) Lawrence % (Auto) Eos % (Auto) Baso % (Auto) Neut # (Auto) Lymph # (Auto) Lawrence # (Auto) Eos # (Auto) Baso # (Auto) Total Counted Neutrophils % (Manual) Lymphocytes % (Manual) Eosinophils % (Manual) Platelet Estimate RBC Morphology Sodium Potassium Chloride Carbon Dioxide Anion Gap BUN Creatinine Estimated Creat Clear Estimated GFR Est GFR ( Amer) Glucose POC Glucose 142 H 189 H 146 H Calcium 01/08/18 05:30 WBC RBC Hgb Hct MCV MCH MCHC RDW Plt Count MPV Neut % (Auto) Lymph % (Auto) Lawrence % (Auto) Eos % (Auto) Baso % (Auto) Neut # (Auto) Lymph # (Auto) Lawrence # (Auto) Eos # (Auto) Baso # (Auto) Total Counted 100 Neutrophils % (Manual) 92 H Lymphocytes % (Manual) 7 L Eosinophils % (Manual) 1 Platelet Estimate Normal RBC Morphology Normal Sodium Potassium Chloride Carbon Dioxide Anion Gap BUN Creatinine Estimated Creat Clear Estimated GFR Est GFR ( Am) Glucose POC Glucose Calcium DS: Diagnosis - Discharge Diagnosis (1) Acute kidney injury Status: Acute (2) CAP (community acquired pneumonia) Status: Acute Discharge Plan - Patient Discharge Instructions ACTIVITY: Continue current activity DIET: continue same diet Patient Instructions: DI for Altered Mental Status - Follow up Plan Follow up with: Andriy Ludwig MD [Staff Physician] - 01/11/18 1:30 pm Disposition: Home, Self-Longterm Medications: Home Medications Medication Instructions Recorded Confirmed Type Aspirin [Aspir 81] 81 mg PO DAILY 01/07/18 01/07/18 History Cholecalciferol (Vitamin D3) 2,000 unit PO DAILY 01/07/18 01/07/18 History [Vitamin D3 1,000 Unit Cap] Glucosamine/D3/Boswellia Caroline 2 each PO DAILY 01/07/18 01/07/18 History [Osteo Bi-Flex Caplet] Pravastatin Sodium [Pravachol] 40 mg PO DAILY 01/07/18 01/07/18 History RX: Allopurinol [Allopurinol 300mg 300 mg PO DAILY 01/07/18 01/07/18 History tablet] RX: Enalapril Maleate 40 mg PO DAILY 01/07/18 01/07/18 History RX: Furosemide [Furosemide 20mg 20 mg PO BID 01/07/18 01/08/18 History Tab] RX: Gabapentin [Gabapentin 100mg 100 mg PO TID 01/07/18 01/08/18 History Cap] RX: Labetalol HCl [Normodyne 100mg 200 mg PO BID 01/07/18 01/08/18 History tablet] hydroCHLOROthiazide 12.5 mg PO DAILY 01/07/18 01/08/18 History [Hydrochlorothiazide 12.5mg Tab] Clopidogrel Bisulfate [Plavix 75mg 75 mg PO DAILY 01/08/18 01/08/18 History Tab] Cyclobenzaprine HCl 5 mg PO HSP PRN 01/08/18 01/08/18 History [Cyclobenzaprine 5mg Tab] Nitroglycerin [Nitrostat 0.4mg SL 0.4 mg SL Q5MINP PRN 01/08/18 01/08/18 History Tablet] RX: Naproxen 250 mg PO BID 01/08/18 01/08/18 History Tramadol HCl [Ultram 50mg 50 mg PO BIDP PRN 01/08/18 01/08/18 History tablet] Prescriptions/Medication Reconciliation: New RX: Doxycycline Hyclate [Vibramycin] 100 mg PO BID #10 cap Continue Cholecalciferol (Vitamin D3) [Vitamin D3 1,000 Unit Cap] 2,000 unit PO DAILY RX: Allopurinol [Allopurinol 300mg tablet] 300 mg PO DAILY Pravastatin Sodium [Pravachol] 40 mg PO DAILY Aspirin [Aspir 81] 81 mg PO DAILY RX: Labetalol HCl [Normodyne 100mg tablet] 200 mg PO BID RX: Gabapentin [Gabapentin 100mg Cap] 100 mg PO TID Clopidogrel Bisulfate [Plavix 75mg Tab] 75 mg PO DAILY Cyclobenzaprine HCl [Cyclobenzaprine 5mg Tab] 5 mg PO HSP PRN PRN Reason: Muscle Spasm Glucosamine/D3/Boswellia Caroline [Osteo Bi-Flex Caplet] 2 each PO DAILY Tramadol HCl [Ultram 50mg tablet] 50 mg PO BIDP PRN PRN Reason: PAIN Nitroglycerin [Nitrostat 0.4mg SL Tablet] 0.4 mg SL Q5MINP PRN PRN Reason: Chest Pain Discontinued RX: Enalapril Maleate 40 mg PO DAILY hydroCHLOROthiazide [Hydrochlorothiazide 12.5mg Tab] 12.5 mg PO DAILY RX: Furosemide [Furosemide 20mg Tab] 20 mg PO BID RX: Naproxen 250 mg PO BID
[2018-01-09 09:52] LABS: Lymphocytes % 9 % (10-50); Monocytes % 10 % (2-9); Neutrophils % 81 % (42-76); Total Cells Counted 100
[2018-01-09 09:53] LABS: RBC Morphology Normal
== END 2018-01-09 08:17 | disposition home or self-care (01) ==
LOC: ER 21:06 → 2ND 22:42
PROVIDERS: ADMIT Emergency Medicine; ATTEND Family Medicine
CPT/HCPCS: 36415; 70450; 71020; 71046; 80048; 80053; 81001; 82550; 82553; 82962; 83605; 84484; 85007; 85025; 87040; 87070; 87205; 93005; 93306; 96365; 96367; 99285; J0456

== ENCOUNTER → 2018-03-13 11:00 | Outpatient (CLI) | payer MEDICARE, SELFPAY ==
--- NOTE | 2018-03-13 11:07 | XR_ITS ---
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 There is mild cardiomegaly without failure. There are low lung volumes with underpenetration of the lung bases making evaluation of the lung bases difficult. Cannot exclude pathology infiltrate/effusion in the left lung base. The lateral view however has an unremarkable appearance. No acute bony anomalies. IMPRESSION: 1. Cardiomegaly without failure, prior CABG. 2. Probably no acute finding. Please see above for detail
== END ==
PROVIDERS: PCP Family Medicine; Visit Provider Nurse Practitioner Family
DX: R06.02 Shortness of breath (principal)
CPT/HCPCS: 71046; 93005

== ENCOUNTER → 2018-04-04 15:10 | Outpatient (CLI) | payer MEDICARE, SELFPAY ==
--- NOTE | 2018-04-04 15:14 | CT_ITS ---
CT chest wo con HISTORY: Leukocytosis, shortness of breath, abnormal chest x-ray ITS.REASON: LEUKOCYTOSIS ORDERING PHYSICIAN: Nilsa Pantoja PATIENT AGE: 82 years COMPARISON: 03/13/2018 Technique: Axial images obtained with sagittal and coronal reformats. All CT scans at the facility use one or more dose reduction, viz: automated exposure control, ma/kV adjustment per patient size (including targeted exams where dose is matched to indication, i.e. head), or iterative reconstruction technique. FINDINGS: There has been a prior CABG. No mediastinal or hilar mass or adenopathy. There is cardiomegaly with coronary artery calcifications and/or stents. No obvious pericardial effusion. There are prominent bilateral pericardial fat pad is felt to contribute to the increased density in the lung bases as seen on the previous chest x-ray. No lobar consolidation or collapse. No effusions or infiltrates. No central obstructing lesions. Upper abdominal images show small hiatal hernia and gallstones. No acute bony anomalies. IMPRESSION: Prior CABG with cardiomegaly. No acute finding in the chest. Cholelithiasis
== END ==
PROVIDERS: Family Provider Nurse Practitioner; PCP Family Medicine; Visit Provider Nurse Practitioner
DX: D72.829 Elevated white blood cell count, unspecified (principal)
CPT/HCPCS: 71250

== ENCOUNTER 2018-04-04 17:30 | Outpatient (RCR) | payer MEDICARE, SELFPAY | END 2018-04-05 17:31 | disposition home or self-care (01) | LOC: PT 17:30 | PROVIDERS: Family Provider Nurse Practitioner; PCP Nurse Practitioner; Visit Provider Anesthesiology Pain Medicine | DX: M54.5 Low back pain (principal); M79.604 Pain in right leg; M79.605 Pain in left leg | CPT/HCPCS: 97010; 97012; 97014; 97110; 97140; 97163; G0283 ==

== ENCOUNTER 2020-07-11 08:03 | Emergency (ER) | payer MEDICARE, SELFPAY ==
[2020-07-11] VITALS (7 sets, daily range): BP systolic 106–120; BP diastolic 57–66; PULSE 63–74; RESP 18–20; TEMP 37.4; O2SAT 93–96; BMI 35.9
--- NOTE | 2020-07-11 08:10 | [facility].EDGENADL ---
ED Disposition Clinical Impression: Renal insufficiency Diarrhea Qualifiers: Diarrhea type: unspecified type Qualified Code(s): R19.7 - Diarrhea, unspecified Disposition: Home, Self-Care Condition on Discharge: Good Additional Instructions: Please drink plenty of clear fluids over the next several days. Do not take your valsartan as this can worsen renal insufficiency over the next 48 hours. Also, if recurrent episodes of diarrhea please immediately report back to emergency department. If other new symptoms such as nausea/vomiting, generalized malaise, decreased urination, or other new concerning symptoms please immediately report back as well. Referrals: Andriy Ludwig MD [Primary Care Provider] - - Critical Care Critical Care Time: No Attestation: On , the high probability of a clinically significant, sudden or life threatening deterioration of the following system(s) required my full and direct attention, intervention and personal management. The time I documented below is in addition to time spent performing reported procedures but includes the following listed in this critical care notation. Medical Decision Making - Medical Records Medical records reviewed: Yes: I reviewed the patient's medical records. - Maximus Inquiry Pt receiving controlled substance: No Vital Signs: 07/11/20 08:05 07/11/20 09:05 07/11/20 09:34 Temperature 99.3 F Temperature Source Oral Pulse Rate [Left Radial] 74 67 63 Respiratory Rate 18 Blood Pressure [Right Arm] 120/66 106/57 L 115/66 Blood Pressure Mean [Right Arm] 84 73 82 Blood Pressure Source [Right Arm] Automatic Cuff Automatic Cuff Automatic Cuff Blood Pressure Position [Right Arm] Sitting Sitting Sitting 02 Sat by Pulse Oximetry 93 L 95 93 L Oxygen Delivery Method Room Air Room Air Room Air 07/11/20 10:32 07/11/20 11:16 07/11/20 11:33 Temperature Temperature Source Pulse Rate [Left Radial] 63 65 72 Respiratory Rate Blood Pressure [Right Arm] 120/65 113/61 111/57 L Blood Pressure Mean [Right Arm] 83 78 75 Blood Pressure Source [Right Arm] Automatic Cuff Automatic Cuff Automatic Cuff Blood Pressure Position [Right Arm] Sitting Sitting Sitting 02 Sat by Pulse Oximetry 94 L 95 93 L Oxygen Delivery Method Room Air Room Air Room Air - Lab Data Lab Results 07/11/20 08:15: WBC 6.6, RBC 4.09 L, Hgb 13.0 L, Hct 41.2 L, MCV 100.7 H, MCH 31.8 H, MCHC 31.6 L, RDW 15.7, Plt Count 235, MPV 8.3, Neut % (Auto) 57.9, Lymph % (Auto) 28.4, [place] % (Auto) 12.4 H, Eos % (Auto) 0.4, Baso % (Auto) 1.0, Neut # (Auto) 3.8, Lymph # (Auto) 1.9, [place] # (Auto) 0.8, Eos # (Auto) 0.0, Baso # (Auto) 0.1 07/11/20 08:15: Sodium 142, Potassium 4.4, Chloride 109 H, Carbon Dioxide 25, Anion Gap 12.4, BUN 27 H, Creatinine 2.00 H, Estimated GFR 32 L, Est GFR ( Amer) 39 L, Glucose 156 H, Calcium 8.9, Total Bilirubin 0.5, AST 37, ALT 29, Alkaline Phosphatase 102, Troponin I 0.01, Total Protein 7.1, Albumin 3.9, Globulin 3.2, Albumin/Globulin Ratio 1.2, Lipase 109 07/11/20 11:26: Troponin I 0.01 07/11/20 11:26: Sodium 140, Potassium 4.4, Chloride 109 H, Carbon Dioxide 26, Anion Gap 9.4, BUN 28 H, Creatinine 1.90 H, Estimated Creat Clear 48, Estimated GFR 34 L, Est GFR ( Amer) 41 L, Glucose 140 H, Calcium 8.4, Total Bilirubin 0.5, AST 38, ALT 27, Alkaline Phosphatase 92, Total Protein 6.7, Albumin 3.6, Globulin 3.1, Albumin/Globulin Ratio 1.2 07/11/20 11:26: Magnesium 2.0 Result diagrams: 07/11/20 08:15 07/11/20 11:26 Orders (Tests/Meds): ED MEDICATIONS Discontinued Medications Generic Name Dose Route Start Last Admin Trade Name Freq PRN Reason Stop Dose Admin Lactated Ringer's 500 mls @ 999 mls/hr 07/11/20 09:45 07/11/20 10:11 Lactated Ringer's 1000 Ml Bag IV 07/11/20 10:15 999 mls/hr .Q31M TJ Administration ORDERS Category Date Time Status Troponin I Q3H Lab 07/11/20 14:30 Ordered Medical Decision Narrative: Patient presents after
--- NOTE | 2020-07-11 08:21 | XR_ITS ---
PROCEDURE: XR CHEST PORTABLE Referring Doctor: Aaron Voss Patient Age:84Y CLINICAL HISTORY: cough malaise former smoker COMPARISON: CR CXR2V XR chest 2V from 12/28/2017 CR CXR2V XR chest 2V from 01/07/2018 DX CXR2V XR chest 2V from 03/13/[address] chest wo con from 04/04/2018 FINDINGS: Today's AP portable upright CXR is Compared to January 07 and December 28 2017 CXR studies as well as February 2018 .. Mild cardiomegaly. There is mild vascular engorgement. Vascularity is less pronounced and improved compared to the February and December 2017 CXR studies. No overt CHF. No evident pleural effusions. No focal pneumonia or pneumothorax. Markings upper normal at infrahilar region particular on the left but similar appearance was seen on previous 2018 CXR studies of this overall nothing definitely acute. CP angles remain fairly sharp with no definite pleural effusion. quality assurance monitor body leads are in place. Chest wall unremarkable on this portable study IMPRESSION: . No acute cardiopulmonary disease. Nothing definitely acute at the chest Mild cardiomegaly with sternotomy/CABG upper. Upper normal pulmonary vascularity. No overt CHF evident Dictated by: Audie Torres MD 07/11/2020 09:12 Audie Torres MD in [facility] 07/11/2020 09:12
--- NOTE | 2020-07-11 08:22 | ECG_ITS ---
APPROVED REPORT Exam: Resting ECG HR:68 bpm ECG Measurements Heart Rate 68 AXES MT 190 P 12 QRSd 154 QRS 67 QT 474 T 25 QTc 504 Conclusion Normal sinus rhythm Right bundle branch block Possible Lateral infarct, age undetermined Abnormal ECG Electronically signed by : Andriy Barrios, 07/11/2020 20:59:38
[2020-07-11 08:30] LABS: Basophils # 0.1 K/mm3 (0-0.2); Eosinophils % 0.4 % (0.1-12.0); Hematocrit 41.2 % (42.0-52.0); Lymphocytes # 1.9 K/mm3 (0.7-4.5); Lymphocytes % 28.4 % (10-50); Mean Corpuscular HGB Conc 31.6 g/dL (31.8-35.4); Mean Corpuscular Hemoglobin 31.8 pg (27.0-31.2); Mean Corpuscular Volume 100.7 fl (80-94); Mean Platelet Volume 8.3 fl (7.4-10.4); Monocytes # 0.8 K/mm3 (0.1-1.0); Monocytes % 12.4 % (1.7-9.3); Neutrophils # 3.8 K/mm3 (1.8-7.8); Neutrophils % 57.9 % (37.0-80.0); Platelet Count 235 K/mm3 (142-424); Red Blood Count 4.09 M/mm3 (4.60-6.20); Red Cell Distribution Width 15.7 % (11.5-17.5); White Blood Count 6.6 K/mm3 (4.8-10.8)
[2020-07-11 08:36] LABS: Chloride 109 mmol/L (98-107); Potassium 4.4 mmoL/L (3.5-5.1); Sodium 142 mmol/L (136-145)
[2020-07-11 08:38] LABS: Alanine Aminotransferase 29 U/L (12-78); Alkaline Phosphatase 102 U/L (38-126); Aspartate Amino Transferase 37 U/L (17-59); Bilirubin,Total 0.5 mg/dl (0.2-1.3); Blood Urea Nitrogen 27 mg/dl (9-20); Estimated Glomerular Filt Rate 32 ml/min (>60); GFR (African American) 39 ML/MIN (>60)
[2020-07-11 08:39] LABS: Albumin Level 3.9 g/dl (3.5-5.0); Albumin/Globulin Ratio 1.2 (1.1-1.8); Anion Gap 12.4 mEq/L (5-15); Calcium 8.9 mg/dl (8.4-10.2); Carbon Dioxide 25 mmol/L (22.0-30.0); Globulin 3.2 g/dL (1.3-3.2); Glucose 156 mg/dl (74-100); Lipase 109 U/L (23-300); Total Protein,Serum 7.1 g/dl (6.3-8.2)
[2020-07-11 08:52] LABS: Troponin I 0.01 ng/ml (0.00-0.034)
--- NOTE | 2020-07-11 11:33 | PC.NURSE ---
Lab at bedside
[2020-07-11 11:56] LABS: Alanine Aminotransferase 27 U/L (12-78); Albumin Level 3.6 g/dl (3.5-5.0); Albumin/Globulin Ratio 1.2 (1.1-1.8); Alkaline Phosphatase 92 U/L (38-126); Anion Gap 9.4 mEq/L (5-15); Aspartate Amino Transferase 38 U/L (17-59); Bilirubin,Total 0.5 mg/dl (0.2-1.3); Blood Urea Nitrogen 28 mg/dl (9-20); Calcium 8.4 mg/dl (8.4-10.2); Carbon Dioxide 26 mmol/L (22.0-30.0); Chloride 109 mmol/L (98-107); Creatinine Clearance Estimated 48 mL/min (50-200); Estimated Glomerular Filt Rate 34 ml/min (>60); GFR (African American) 41 ML/MIN (>60); Globulin 3.1 g/dL (1.3-3.2); Glucose 140 mg/dl (74-100); Potassium 4.4 mmoL/L (3.5-5.1); Sodium 140 mmol/L (136-145); Total Protein,Serum 6.7 g/dl (6.3-8.2)
[2020-07-11 12:10] LABS: Troponin I 0.01 ng/ml (0.00-0.034)
--- NOTE | 2020-07-11 12:13 | PC.NURSE ---
scallop dredger for Dr Oziel sanz.
--- NOTE | 2020-07-11 12:37 | PC.NURSE ---
manager combination for nidhi paged again.
--- NOTE | 2020-07-11 12:44 | PC.NURSE ---
Pts family states that pt is becoming very aggravated and that he wants to leave. made aware.
== END 2020-07-11 12:59 | disposition home or self-care (01) ==
PROVIDERS: Emergency Provider Emergency Medicine; PCP Family Medicine
DX: N28.9 Disorder of kidney and ureter, unspecified (principal); R19.7 Diarrhea, unspecified; I25.10 Atherosclerotic heart disease of native coronary artery without angina pectoris; I25.2 Old myocardial infarction; I10 Essential (primary) hypertension; E78.5 Hyperlipidemia, unspecified; Z87.891 Personal history of nicotine dependence; Z79.899 Other long term (current) drug therapy
CPT/HCPCS: 71045; 80053; 83690; 83735; 84484; 85025; 93005; 96365; 99283

== ENCOUNTER 2020-07-16 10:47 | Inpatient (IN) | payer MEDICARE, SELFPAY ==
[2020-07-16] VITALS (15 sets, daily range): BP systolic 104–157; BP diastolic 51–89; PULSE 20–96; RESP 18–22; TEMP 36.4–37.6; O2SAT 76–96; BMI 34.9; BMI 36.1
--- NOTE | 2020-07-16 11:57 | XR_ITS ---
PROCEDURE: XR CHEST PORTABLE CLINICAL HISTORY: covid exposure COMPARISON: CR CXR2V XR chest 2V from 01/07/2018 DX CXR2V XR chest 2V from 03/13/[address] chest wo con from 04/04/2018 CR XR CHEST PORTABLE from 07/11/2020 FINDINGS: There is moderate generalized cardiomegaly. Sternal wire sutures and surgical clips are again seen consistent with previous CABG. There may be very mild pulmonary congestion. There has been interval increase in diffuse opacities in both perihilar regions and lower lobes since the most recent study 07/11/2020. Developing bilateral ill-defined ground-glass opacity type pneumonia is likely. There is no pleural fluid. IMPRESSION: Bilateral lower lobe diffuse opacities likely representing developing pneumonic infiltrates and Covid19 pneumonia cannot be excluded Dictated by: Dr. Florencio Hoyt MD 07/16/2020 16:20 Dr. Florencio Hoyt MD in [facility] 07/16/2020 16:20
--- NOTE | 2020-07-16 12:10 | HMH.EDUTC ---
[facility] [place] Clinical Impression: Shortness of breath Disposition: Still a Patient Condition on Discharge: Good Referrals: Andriy Ludwig MD [Primary Care Provider] - Time of Disposition: 12:47 Medical Decision Making - Maximus Inquiry Pt receiving controlled substance: No Maximus was queried for this patient: No Vital Signs: 07/16/20 11:18 07/16/20 12:45 07/16/20 13:45 Temperature 99.6 F 99.4 F Temperature Source Oral Oral Pulse Rate [Right] 20 L 88 76 Respiratory Rate 20 22 18 Blood Pressure [Right Arm] 117/70 126/75 124/73 Blood Pressure Mean [Right Arm] 85 92 90 Blood Pressure Source [Right Arm] Automatic Cuff Automatic Cuff Automatic Cuff Blood Pressure Position [Right Arm] Sitting Sitting Sitting 02 Sat by Pulse Oximetry 88 L 76 L 92 L Oxygen Delivery Method Room Air Room Air Nasal Cannula Oxygen Flow Rate (LPM) 2 07/16/20 14:00 Temperature Temperature Source Pulse Rate [Right] 78 Respiratory Rate 18 Blood Pressure [Right Arm] 127/75 Blood Pressure Mean [Right Arm] 92 Blood Pressure Source [Right Arm] Automatic Cuff Blood Pressure Position [Right Arm] Sitting 02 Sat by Pulse Oximetry 92 L Oxygen Delivery Method Oxygen Flow Rate (LPM) - Lab Data Lab Results 07/16/20 13:00: WBC 8.4, RBC 3.96 L, Hgb 12.8 L, Hct 39.4 L, MCV 99.4 H, MCH 32.4 H, MCHC 32.6, RDW 15.4, Plt Count 259, MPV 8.1, Neut % (Auto) 74.5, Lymph % (Auto) 14.1, [place] % (Auto) 10.6 H, Eos % (Auto) 0.1, Baso % (Auto) 0.7, Neut # (Auto) 6.2, Lymph # (Auto) 1.2, [place] # (Auto) 0.9, Eos # (Auto) 0.0, Baso # (Auto) 0.1 07/16/20 13:00: Sodium 139, Potassium 4.2, Chloride 105, Carbon Dioxide 23, Anion Gap 15.2 H, BUN 35 H, Creatinine 1.80 H, Estimated Creat Clear 43, Estimated GFR 36 L, Est GFR ( Amer) 44 L, Glucose 149 H, Calcium 9.1, Total Bilirubin 0.7, AST 49, ALT 36, Alkaline Phosphatase 105, Troponin I 0.04 H, Total Protein 7.5, Albumin 4.0, Globulin 3.5 H, Albumin/Globulin Ratio 1.1 Result diagrams: 07/16/20 13:00 07/16/20 13:00 Orders (Tests/Meds): ORDERS Category Date Time Status Chest XR -- portable [XR chest portable] Stat Exams 07/16/20 11:57 Taken Covid-19 Nasal PCR ([facility]) Routine Lab 07/16/20 11:45 Received Troponin I Q3H Lab 07/16/20 16:00 Ordered Troponin I Q3H Lab 07/16/20 19:00 Ordered Blood Culture Stat Micro 07/16/20 13:08 Received - Radiology Data #1 Image(s): Chest Image Reviewed: Yes I reviewed the patient's radiology image w/the ED provider suspicious for COVID pneumonia, Medical Decision Narrative: Spoke with Dr Chris, he viewed xray and agreed patient to be transferred to ED for further evaluation Patient transferred to room 5 and report given to Nicolasa [facility] [place] - General Stated complaint: covid exposure Time Seen by Provider: 07/16/20 12:10 Mode of Arrival: Ambulatory Source of Information: Patient Limitations: No Limitations Description of Symptoms (Recalled from Triage Doc. by RN): wants covid test HEENT Symptoms (Recalled from RN notes): No Resp Symptoms (Recalled from RN notes): No Skin Symptoms (Recalled from RN notes): No MS Symptoms (Recalled from RN notes): No Functional Status (Recalled from RN notes): na - History of Present Illness Provider Complaint: Patient states that he wants a COVID test States that he was seen in the ED on 07/11 and again at his PCP States that he has continued to have cough and not feeling well on and off for the last few days and family wants him to get checked for COVID States he gets a little winded when he moves around but has been doing that for awhile now Denies any shortness of breath when he is sitting. Family states that he is worse and wanted him to get tested - Related Data Home Medications Medication Instructions Recorded Confirmed Aspirin [Aspir 81] 81 mg PO DAILY 01/07/18 01/07/18 Cholecalciferol (Vitamin D3) 2,000 unit PO DAILY 01/07/18 01/07/18 [Vitamin D3 1,000 Unit Cap] Gabapentin [Gabapentin 1
[2020-07-16 13:15] LABS: Basophils # 0.1 K/mm3 (0-0.2); Basophils % 0.7 % (0.1-2.0); Eosinophils % 0.1 % (0.1-12.0); Hematocrit 39.4 % (42.0-52.0); Hemoglobin 12.8 g/dL (14.1-18.0); Lymphocytes # 1.2 K/mm3 (0.7-4.5); Lymphocytes % 14.1 % (10-50); Mean Corpuscular HGB Conc 32.6 g/dL (31.8-35.4); Mean Corpuscular Hemoglobin 32.4 pg (27.0-31.2); Mean Corpuscular Volume 99.4 fl (80-94); Mean Platelet Volume 8.1 fl (7.4-10.4); Monocytes # 0.9 K/mm3 (0.1-1.0); Monocytes % 10.6 % (1.7-9.3); Neutrophils # 6.2 K/mm3 (1.8-7.8); Neutrophils % 74.5 % (37.0-80.0); Platelet Count 259 K/mm3 (142-424); Red Blood Count 3.96 M/mm3 (4.60-6.20); Red Cell Distribution Width 15.4 % (11.5-17.5); White Blood Count 8.4 K/mm3 (4.8-10.8)
[2020-07-16 13:21] LABS: Chloride 105 mmol/L (98-107); Potassium 4.2 mmoL/L (3.5-5.1); Sodium 139 mmol/L (136-145)
[2020-07-16 13:23] LABS: Blood Urea Nitrogen 35 mg/dl (9-20); Creatinine Clearance Estimated 43 mL/min (50-200); Estimated Glomerular Filt Rate 36 ml/min (>60); GFR (African American) 44 ML/MIN (>60)
[2020-07-16 13:24] LABS: Alanine Aminotransferase 36 U/L (12-78); Albumin/Globulin Ratio 1.1 (1.1-1.8); Alkaline Phosphatase 105 U/L (38-126); Anion Gap 15.2 mEq/L (5-15); Aspartate Amino Transferase 49 U/L (17-59); Bilirubin,Total 0.7 mg/dl (0.2-1.3); Calcium 9.1 mg/dl (8.4-10.2); Carbon Dioxide 23 mmol/L (22.0-30.0); Globulin 3.5 g/dL (1.3-3.2); Glucose 149 mg/dl (74-100); Total Protein,Serum 7.5 g/dl (6.3-8.2)
[2020-07-16 13:36] LABS: Troponin I 0.04 ng/ml (0.00-0.034)
--- NOTE | 2020-07-16 13:54 | ECG_ITS ---
APPROVED REPORT Exam: Resting ECG HR:78 bpm ECG Measurements Heart Rate 78 AXES MO 196 P 52 QRSd 150 QRS 40 QT 458 T 36 QTc 522 Conclusion Normal sinus rhythm Right bundle branch block Possible Lateral infarct, age undetermined Abnormal ECG Electronically signed by : nAdriy Barrios, 07/16/2020 19:34:43
[2020-07-16 15:44] LABS: NT Pro Brain Natriuretic Pep. 1990 pg/mL (0-450)
--- NOTE | 2020-07-16 15:45 | PC.NURSE ---
RADHA PASCUAL speaking with Dr Chavez who is transportation planning engineer for Dr. Ludwig
--- NOTE | 2020-07-16 15:48 | PC.NURSE ---
per lab pt covid swab has approx 2 hours left on it, states their analyzers have been continuously running. ER MD is aware of this. We will hold pt in ER pending swab results
--- NOTE | 2020-07-16 16:04 | HMH.EDSOB ---
ED Disposition Clinical Impression: Shortness of breath Respiratory failure with hypoxia Qualifiers: Chronicity: acute Qualified Code(s): J96.01 - Acute respiratory failure with hypoxia Disposition: Admitted as Observation Condition on Discharge: Fair Referrals: Andriy Ludwig MD [Primary Care Provider] - - Critical Care Critical Care Time: No Attestation: On 07/16/20, the high probability of a clinically significant, sudden or life threatening deterioration of the following system(s) required my full and direct attention, intervention and personal management. The time I documented below is in addition to time spent performing reported procedures but includes the following listed in this critical care notation. Medical Decision Making - Maximus Inquiry Pt receiving controlled substance: No Vital Signs: 07/16/20 11:18 07/16/20 12:45 07/16/20 13:45 Temperature 99.6 F 99.4 F Temperature Source Oral Oral Pulse Rate [Right] 20 L 88 76 Respiratory Rate 20 22 18 Blood Pressure [Right Arm] 117/70 126/75 124/73 Blood Pressure Mean [Right Arm] 85 92 90 Blood Pressure Source [Right Arm] Automatic Cuff Automatic Cuff Automatic Cuff Blood Pressure Position [Right Arm] Sitting Sitting Sitting 02 Sat by Pulse Oximetry 88 L 92 L 92 L Oxygen Delivery Method Room Air Nasal Cannula Nasal Cannula Oxygen Flow Rate (LPM) 3 2 07/16/20 14:00 07/16/20 14:38 07/16/20 15:06 Temperature Temperature Source Pulse Rate [Right] 78 78 77 Respiratory Rate 18 18 20 Blood Pressure [Right Arm] 127/75 133/74 104/51 L Blood Pressure Mean [Right Arm] 92 93 68 Blood Pressure Source [Right Arm] Automatic Cuff Automatic Cuff Automatic Cuff Blood Pressure Position [Right Arm] Sitting Sitting Sitting 02 Sat by Pulse Oximetry 92 L 93 L 93 L Oxygen Delivery Method Oxygen Flow Rate (LPM) - Lab Data Lab Results 07/16/20 13:00: WBC 8.4, RBC 3.96 L, Hgb 12.8 L, Hct 39.4 L, MCV 99.4 H, MCH 32.4 H, MCHC 32.6, RDW 15.4, Plt Count 259, MPV 8.1, Neut % (Auto) 74.5, Lymph % (Auto) 14.1, [place] % (Auto) 10.6 H, Eos % (Auto) 0.1, Baso % (Auto) 0.7, Neut # (Auto) 6.2, Lymph # (Auto) 1.2, [place] # (Auto) 0.9, Eos # (Auto) 0.0, Baso # (Auto) 0.1 07/16/20 13:00: Sodium 139, Potassium 4.2, Chloride 105, Carbon Dioxide 23, Anion Gap 15.2 H, BUN 35 H, Creatinine 1.80 H, Estimated Creat Clear 43, Estimated GFR 36 L, Est GFR ( Amer) 44 L, Glucose 149 H, Calcium 9.1, Total Bilirubin 0.7, AST 49, ALT 36, Alkaline Phosphatase 105, Troponin I 0.04 H, Total Protein 7.5, Albumin 4.0, Globulin 3.5 H, Albumin/Globulin Ratio 1.1 07/16/20 13:00: NT-Pro-B Natriuret Pep 1989 H Result diagrams: 07/16/20 13:00 07/16/20 13:00 Orders (Tests/Meds): ORDERS Category Date Time Status Chest XR -- portable [XR chest portable] Stat Exams 07/16/20 11:57 Taken Covid-19 Nasal PCR ([facility]) Routine Lab 07/16/20 11:45 Received Troponin I Q3H Lab 07/16/20 16:00 Ordered Troponin I Q3H Lab 07/16/20 19:00 Ordered Blood Culture Stat Micro 07/16/20 13:08 Received Medical Decision Narrative: 84yo M evaluated for dyspnea on exertion. Chest x-ray is significantly worsened from previous imaging. Patient is now requiring supplemental O2, which is new for him. Patient will require admission secondary to acute respiratory failure with hypoxia. Strongly believe the patient likely has coronavirus. He is still pending coronavirus results at this time but his other labs are largely unremarkable. Discussed the case with Dr. Chavez who agrees to admit the patient at this time for further work-up and management. Resp/SOB HPI - General Chief Complaint: Shortness of Breath/Dyspnea Stated Complaint: covid exposure Time Seen by Provider: 07/16/20 12:10 Mode of Arrival: Ambulatory Source of Information: Patient Limitations: No Limitations Description of Symptoms (Recalled from ER Triage Doc. by RN): Pt reports pt having SOA for the past couple days, pt states has
--- NOTE | 2020-07-16 16:09 | PC.NURSE ---
PT AND FAMILY UPDATED ON PLAN OF CARE
[2020-07-16 16:42] LABS: Troponin I 0.03 ng/ml (0.00-0.034)
--- NOTE | 2020-07-16 17:17 | PC.NURSE ---
pt sitting up in chair at this time for comfort. will continue to monitor
--- NOTE | 2020-07-16 17:17 | PC.NURSE ---
lab states approx 45 minutes left of covid swab
--- NOTE | 2020-07-16 18:11 | PC.NURSE ---
notified ER pt is covid swab is positive notified storehouse clerk pt is covid positive, states she will get a bed in the covid unit
--- NOTE | 2020-07-16 18:17 | PC.NURSE ---
notified ER pt Sa02 96-97% on 3L NC ER states to decrease O2 to 2L NC 93% on 2L per NC at this time will continue to monitor
[2020-07-16 20:00] LABS: Troponin I 0.03 ng/ml (0.00-0.034)
[2020-07-16 20:50] LABS: C-Reactive Protein 66.4 mg/L (0-4)
--- NOTE | 2020-07-16 21:29 | PC.NURSE ---
Pt is A&Ox4 able to ambulate with staff SBA. Pt denies any SOB, dyspnea, or pain. When discussing newly ordered medications per Dr. Ludwig, pt refuses FS and Decadron. Pt states I don't have diabetes, I never have , and I'm not taking any steroids because Nilsa gave me 3 doses before and on the third dose I went out of my mind and had to come to the hospital .
[2020-07-17] VITALS (8 sets, daily range): BP systolic 138–168; BP diastolic 78–94; PULSE 70–90; RESP 19–22; TEMP 36.6–37.4; O2SAT 83–93; BMI 35.6
--- NOTE | 2020-07-17 06:49 | PC.NURSE ---
Pt is A&Ox4 and has ambulated in room and to to [facility] 2x this shift and tolerated well. Pt c/o only slight SOB with exertion with ambulating, none at rest. Diminished lung sounds t/o on auscultation. Room air sat 83%. SaO2 90-94 t/o most of shift. Pt did has 2 apnea episodes, dropped down to 84% and rebounded quickly. ABD is large, round and tight. Active bowel sounds, large BM this am. Pt denies any N/V/D. +3 pitting edema to BLE. Pt has voided adequately. Pt has his own TEDS hose that he wears during the day, requested off for sleep. Lovenox ordered to start at 0900. NSR with BBB on tele. VSS, call light within reach.
[2020-07-17 07:06] LABS: Alanine Aminotransferase 37 U/L (12-78); Albumin Level 3.8 g/dl (3.5-5.0); Alkaline Phosphatase 84 U/L (38-126); Anion Gap 17.2 mEq/L (5-15); Aspartate Amino Transferase 63 U/L (17-59); Bilirubin,Direct 0.5 mg/dl (0.0-0.4); Bilirubin,Indirect 0.3 mg/dL (0.0-0.9); Bilirubin,Total 0.8 mg/dl (0.2-1.3); Bilirubin,Unconjugated 0.4 mg/dL (0.0-1.1); Blood Urea Nitrogen 35 mg/dl (9-20); Calcium 8.9 mg/dl (8.4-10.2); Carbon Dioxide 21 mmol/L (22.0-30.0); Chloride 107 mmol/L (98-107); Creatinine Clearance Estimated 47 mL/min (50-200); Estimated Glomerular Filt Rate 39 ml/min (>60); GFR (African American) 47 ML/MIN (>60); Glucose 129 mg/dl (74-100); Potassium 4.2 mmoL/L (3.5-5.1); Sodium 141 mmol/L (136-145); Total Protein,Serum 7.2 g/dl (6.3-8.2)
[2020-07-17 07:39] LABS: Basophils # 0.1 K/mm3 (0-0.2); Basophils % 0.7 % (0.1-2.0); Eosinophils % 0.1 % (0.1-12.0); Hematocrit 37.5 % (42.0-52.0); Hemoglobin 12.8 g/dL (14.1-18.0); Lymphocytes # 1.1 K/mm3 (0.7-4.5); Lymphocytes % 15.2 % (10-50); Mean Platelet Volume 9.4 fl (7.4-10.4); Monocytes % 13.4 % (1.7-9.3); Neutrophils # 5.3 K/mm3 (1.8-7.8); Neutrophils % 70.7 % (37.0-80.0); Platelet Count 263 K/mm3 (142-424); Red Blood Count 3.87 M/mm3 (4.60-6.20); Red Cell Distribution Width 15.3 % (11.5-17.5); White Blood Count 7.5 K/mm3 (4.8-10.8)
--- NOTE | 2020-07-17 08:06 | HMH.HP ---
*Admission Date: 07/16/20 *Chief complaint: Shortness of breath *History of present illness: 84-year-old male with history of coronary artery disease status post CABG in the s with stenting of saphenous vein graft in 2014 presented to the urgent treatment clinic with complaint of shortness of breath. This is the patient's second visit to the ER/[facility] in the last week. The first was on July 11 when he presented after an episode of diarrhea with some discomfort in his back. In the urgent treatment clinic patient was identified as being hypoxic and due to his age and medical history was transitioned to the emergency room. Work-up in the emergency room revealed coronavirus infection with infiltrates on chest x-ray. Because of patient's oxygen requirement he was admitted to the Covid unit on supplemental oxygen. O2 sats on presentation were in the mid 80s. Since admission patient is made O2 sats in the 90s on 3 L of oxygen. This morning he reports having a cough for several days that is mostly nonproductive. He does believe he is feeling better this morning. Over the last week he has continued to have occasional diarrhea with discomfort in his mid back. He denies fevers, chills, loss of smell or taste, myalgias, vomiting. [facility] History I have reviewed the patient's past medical history: Yes Medical History: Reports:: Arrhythmia, Atherosclerotic Heart Disease, Coronary Artery Disease, Diabetes Mellitus Type 2, Heart Murmur, Hyperlipidemia, Hypertension, Myocardial Infarction Denies:: Cancer, Diabetes Mellitus Type 1, MRSA *Have you ever received a pneumonia vaccine?: Yes *Have you received a flu vaccine this season?: Yes Other Medical History: Reports: Arthritis Other Surgeries: Yes: Angiogram, CABG, Cardiac Catheterization, Cardiac Surgery, Coronary Stent, Open Heart Surgery, Other (Lumbar spine surgery) Amputation: No Fractures: No - *Social History Smoking Status: Former smoker Tobacco Type: cigarettes Alcohol Intake: never *Occupational Status:: retired Housing: house Household Members: spouse *Travel in the last 8 weeks: None Family Hx:: Cancer, Coronary Artery Disease, Diabetes, Heart Attack, Hyperlipidemia, Hypertension Review of Systems - Constitutional Reports lack of energy, Denies anorexia, Denies body ache(s), Denies chills - ENT Denies abnormal hearing, Denies poor balance, Denies dizziness, Denies dry mouth - *Cardiovascular Reports leg swelling, Denies chest pain, Denies chest pain at rest, Denies chest pain with activity - *Respiratory Reports cough, Reports shortness of breath, Reports shortness of breath with activity, Denies coughing up blood - *Gastrointestinal Denies abdominal pain, Denies belching, Denies bloating - *Genitourinary Denies difficulty urinating, Denies difficulty with ejaculations - *Musculoskeletal Reports joint pain, Denies abnormal walking, Denies decreased muscle mass - *Neurologic Reports abnormal hearing, Denies abnormal walking, Denies abnormal movements, Denies abnormal speech, Denies behavioral changes Meds Home Medications Medication Instructions Recorded Confirmed Type Aspirin [Aspir 81] 81 mg PO DAILY 01/07/18 07/16/20 History Cholecalciferol (Vitamin D3) 2,000 unit PO DAILY 01/07/18 07/16/20 History [Vitamin D3 1,000 Unit Cap] Labetalol HCl [Normodyne 100mg 200 mg PO BID 01/07/18 07/16/20 History tablet] Pravastatin Sodium [Pravachol] 40 mg PO DAILY 01/07/18 07/16/20 History allopurinoL [Allopurinol 300mg 300 mg PO DAILY 01/07/18 07/16/20 History tablet] Amlodipine Besylate [Norvasc 5mg 5 mg PO BID 07/16/20 07/16/20 History tablet] Amoxicillin [Amoxicillin 500mg 500 mg PO BID 07/16/20 07/16/20 History Cap] Bumetanide 1 mg PO BID 07/16/20 07/16/20 History Furosemide [Furosemide 20mg Tab*] 20 mg PO DAILY 07/16/20 07/16/20 History Valsartan [Valsartan 80mg 80 mg PO DAILY 07/16/20 07/16/20 History Tablets] Allergies Allergy/AdvR
--- NOTE | 2020-07-17 09:53 | P.CONPHA_ITS ---
[facility] Pharmacy VTE Monitoring - Patient Demographics Admission date: 07/16/20 Report Date: 07/17/20 Time: 09:53 Allergies/Adverse Reactions: Patient Allergies No Known Allergies Allergy (Verified 01/07/18 21:25) Height: 1.65 m Weight: 98.571 kg Patient Problems: Current Active Problems Shortness of breath (Acute) Respiratory failure with hypoxia (Acute) Pneumonia due to COVID-19 virus (Acute) Coronary artery disease (Chronic) Stage 3b chronic kidney disease (Chronic) - VTE Risk Labs: VTE Related Lab Results Hgb 12.8 g/dL (14.1-18.0) L 07/17/20 06:10 Hct 37.5 % (42.0-52.0) L 07/17/20 06:10 Plt Count 263 K/mm3 (142-424) 07/17/20 06:10 BUN 35 mg/dl (9-20) H 07/17/20 06:10 Creatinine 1.70 mg/dl (0.66-1.25) H 07/17/20 06:10 Estimated Creat Clear 47 mL/min (50-200) 07/17/20 06:10 Clinical Trial Participant: No - Prophylaxis VTE Prophylaxis Ordered?: Yes Types of VTE Prophylaxis: TEDS Knee High, Pharmacological Pharmacologic Type: Enoxaparin
--- NOTE | 2020-07-17 10:08 | HMH.PHAINT ---
HOME MEDICATION RECONCILIATION COMPLETED USING LIST FROM HOME PHARMACY
[2020-07-17 12:16] LABS: POC Glucose,Bedside 152 (70-110)
[2020-07-17 17:04] LABS: POC Glucose,Bedside 193 (70-110)
--- NOTE | 2020-07-17 19:03 | PC.NURSE ---
PATIENT IS A&OX4, LUNGS: INSPIRATORY AND EXPIRATORY RHONCHI HEARD, PULSES EQUAL. PATIENT ATE BREAKFAST AND LUNCH BUT REFUSED DINNER. PATIENT HAD 1800 OUTPUT. NO CONCERNS.
[2020-07-18] VITALS (8 sets, daily range): BP systolic 124–153; BP diastolic 64–87; PULSE 76–90; RESP 17–22; TEMP 36.4–36.9; O2SAT 86–94; BMI 34.7
[2020-07-18 06:09] LABS: Basophils % 0.4 % (0.1-2.0); Hematocrit 39.3 % (42.0-52.0); Hemoglobin 12.9 g/dL (14.1-18.0); Lymphocytes % 15.6 % (10-50); Mean Corpuscular HGB Conc 32.8 g/dL (31.8-35.4); Mean Corpuscular Hemoglobin 32.5 pg (27.0-31.2); Mean Corpuscular Volume 98.9 fl (80-94); Monocytes # 0.6 K/mm3 (0.1-1.0); Monocytes % 8.7 % (1.7-9.3); Neutrophils % 75.3 % (37.0-80.0); Platelet Count 289 K/mm3 (142-424); Red Blood Count 3.98 M/mm3 (4.60-6.20); Red Cell Distribution Width 15.4 % (11.5-17.5); White Blood Count 6.7 K/mm3 (4.8-10.8)
--- NOTE | 2020-07-18 06:22 | PC.NURSE ---
Pt is A&Ox4 and has ambulated in room and to side of bed during the night and tolerated well. Pt continues on O2 at 3LPM via NC with sats low 90's t/o shift. Room air sat was 86%. Lungs diminished but clear. Pt reports he has had 2 coughs, non productive since yesterday. Pt denies any SOB or dyspnea. ABD is round, soft, with active bowel sounds, last BM was 07/17/20. Pt denies any n/v/d but does report poor appetite. Pt ate breakfast and lunch during previous shift but refused all dinner and snack d/t I'm just not hungry . +3 pitting edema to BLE continues. Pt voided 875ml this shift and lost ~2.5kg since yesterday. Offered TEDS placement this am but pt refused at this time. NSR w/ BBB noted on tele. Lovenox for VTE. VSS, call light within reach.
[2020-07-18 06:23] LABS: Alanine Aminotransferase 41 U/L (12-78); Albumin Level 3.8 g/dl (3.5-5.0); Alkaline Phosphatase 99 U/L (38-126); Aspartate Amino Transferase 58 U/L (17-59); Bilirubin,Direct 0.3 mg/dl (0.0-0.4); Bilirubin,Indirect 0.2 mg/dL (0.0-0.9); Bilirubin,Total 0.5 mg/dl (0.2-1.3); Bilirubin,Unconjugated 0.2 mg/dL (0.0-1.1); Blood Urea Nitrogen 40 mg/dl (9-20); Calcium 9.1 mg/dl (8.4-10.2); Carbon Dioxide 21 mmol/L (22.0-30.0); Chloride 107 mmol/L (98-107); Creatinine Clearance Estimated 43 mL/min (50-200); Estimated Glomerular Filt Rate 36 ml/min (>60); GFR (African American) 44 ML/MIN (>60); Sodium 143 mmol/L (136-145); Total Protein,Serum 7.3 g/dl (6.3-8.2)
[2020-07-18 06:29] LABS: Glucose 155 mg/dl (74-100)
--- NOTE | 2020-07-18 07:45 | P.PN_ITS ---
Internal Medicine - PN: Subj *Date: 07/18/20 *Time: 07:45 Interval history: No changes over the last 24 hours. O2 sats remain in the low 90s and may decrease to the high 80s with activity but patient recovers quickly per nursing staff. He reports improvement in appetite. He continues to denies shortness of breath or even feeling bad. Exam Vital signs and Labs for Last 24 Hours: Temp Pulse Resp BP Pulse Ox 98.1 F 86 20 126/64 86 L 07/18/20 00:00 07/18/20 04:00 07/18/20 04:00 07/18/20 04:00 07/18/20 01:39 Laboratory Results - last 24 hr 07/17/20 12:09: POC Glucose 152 H 07/17/20 16:57: POC Glucose 193 H 07/18/20 05:50: WBC 6.7, RBC 3.98 L, Hgb 12.9 L, Hct 39.3 L, MCV 98.9 H, MCH 32.5 H, MCHC 32.8, RDW 15.4, Plt Count 289, MPV 8.0, Neut % (Auto) 75.3, Lymph % (Auto) 15.6, [place] % (Auto) 8.7, Eos % (Auto) 0.0 L, Baso % (Auto) 0.4, Neut # (Auto) 5.0, Lymph # (Auto) 1.0, [place] # (Auto) 0.6, Eos # (Auto) 0.0, Baso # (Auto) 0.0 07/18/20 05:50: Sodium 143, Potassium 4.0, Chloride 107, Carbon Dioxide 21 L, Anion Gap 19.0 H, BUN 40 H, Creatinine 1.80 H, Estimated Creat Clear 43, Estimated GFR 36 L, Est GFR ( Amer) 44 L, Glucose 155 H D, Calcium 9.1, Total Bilirubin 0.5, Direct Bilirubin 0.3, Conjugated Bilirubin 0.0, Indirect Bilirubin 0.2, Unconjugated Bilirubin 0.2, AST 58, ALT 41, Alkaline Phosphatase 99, Total Protein 7.3, Albumin 3.8 I & O for Last 24 hours: Intake & Output 07/15/20 07/16/20 07/17/20 07/18/20 11:59 11:59 11:59 11:59 Intake Total 820 / 820 800 / 800 Output Total 951 / 951 1500 / 1500 Balance -131 / -131 -700 / -700 Weight 210 lb 214 lb 208 lb 6.4 oz Narrative: Patient looks to be in no distress. He is sitting on the side of the bed this morning. Lung exam reveals coarse breath sounds posteriorly with rales in the right base. Anteriorly lungs are clear. Heart has a regular rate and rhythm. Lower extremities continue to have 2-3+ edema around the ankles Assessment and Plan (1) Pneumonia due to COVID-19 virus Status: Acute Category: Medical Code(s): U07.1 - COVID-19; J12.82 - Pneumon ia due to coronavirus disease 2019 (2) Coronary artery disease Status: Chronic Qualifiers: Coronary Disease-Associated Artery/Lesion type: [place] artery [place] vs. transplanted heart: [place] heart Associated angina: without angina Qualified Code(s): I25.10 - Atherosclerotic heart disease of [place] coronary artery without angina pectoris Category: Medical Code(s): I25.10 - Atherosclerotic heart disease of [place] coronary artery without angina pectoris (3) 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 Category: Medical Code(s): N18.32 - Chronic kidney disease, stage 3b (4) Respiratory failure with hypoxia Status: Acute Qualifiers: Chronicity: acute Qualified Code(s): J96.01 - Acute respiratory failure with hypoxia Category: Medical Code(s): J96.91 - Respiratory failure, unspecified with hypoxia - Assessment and plan all Dx Assessment and Plan for all problems:: 1. Continue supplemental oxygen with goal O2 sats greater than 90% 2. Continue remdesivir and dexamethasone (day 2) 3. Patient will have his room rearranged to allow for a little bit more space of the patient may get out of bed and move and sit in a chair.
[2020-07-18 11:37] LABS: POC Glucose,Bedside 136 (70-110)
[2020-07-18 16:31] LABS: POC Glucose,Bedside 174 (70-110)
--- NOTE | 2020-07-18 20:04 | PC.NURSE ---
PATIENT UP TO CHAIR FOR MOST OF THIS RN SHIFT. PATIENT HAS AMBULATED IN ROOM, O2 STATS WOULD DROP TO LOW 80 AND PATIENT WOULD RECOVER QUICKLY. NO CONCERNS AT THIS TIME.
[2020-07-19] VITALS: PULSE 80
[2020-07-19 03:26] VITALS: BP 129/77; PULSE 75; RESP 22; TEMP 36.7; O2SAT 91
--- NOTE | 2020-07-19 03:27 | PC.NURSE ---
Pt is A&Ox4 and slept poorly this shift. P reported that he could not sleep any longer and wanted to get up to the chair around midnight, and has been awake and up to chair since. Pt continues on O2, was able to decrease O2 to 2.5LPM NC for about 2 hours and then when pt got up to chair and ambulated had to increase back to 3LPM then 3.5LPM to maintain O2 >90%. No crackles noted, only scattered rhonchi, and left anterior is clear. IS best at 1750ml, although this does little to increase SaO2. Pt denies any SOB, cough, or dyspnea. Room air sat of 84% this am. ABD is slightly distended, active bowel sound. No BM today and reports he had a great appetite during previous shift. +2 pitting edema to BLE. Pulses and [place] SE[place] are WNL. Pt has been a little anxious overnight, wanting to get his belongings in order and hoping to go home. Pt has changed pants, placed home TEDS on and wanted to put shoes on to get ready . Reminded pt that it was only 0300, pt states he is usually up at this time to play on his phone. Pt refused basin bath. Did allow new gown placement and linen changed. NSR with BBB on tele. Call light within reach.
[2020-07-19 03:53] VITALS: O2SAT 84
[2020-07-19 04:00] VITALS: PULSE 80
[2020-07-19 05:00] VITALS: BMI 34.7
[2020-07-19 06:20] LABS: POC Glucose,Bedside 153 (70-110)
[2020-07-19 06:32] LABS: Anion Gap 18.3 mEq/L (5-15); Blood Urea Nitrogen 51 mg/dl (9-20); Calcium 9.3 mg/dl (8.4-10.2); Carbon Dioxide 23 mmol/L (22.0-30.0); Chloride 106 mmol/L (98-107); Creatinine Clearance Estimated 40 mL/min (50-200); Estimated Glomerular Filt Rate 34 ml/min (>60); GFR (African American) 41 ML/MIN (>60); Glucose 147 mg/dl (74-100); Potassium 4.3 mmoL/L (3.5-5.1); Sodium 143 mmol/L (136-145)
[2020-07-19 06:38] LABS: C-Reactive Protein 52.4 mg/L (0-4)
--- NOTE | 2020-07-19 07:52 | HMH.DCSUM ---
General - General Admission date:: 07/16/20 Discharge date: 07/19/20 HPI HPI: 84-year-old male with history of coronary artery disease status post CABG in the with stenting of saphenous vein graft in 2014 presented to the urgent treatment clinic with complaint of shortness of breath. This is the patient's second visit to the ER/UTC in the last week. The first was on July 11 when he presented after an episode of diarrhea with some discomfort in his back. In the urgent treatment clinic patient was identified as being hypoxic and due to his age and medical history was transitioned to the emergency room. Work-up in the emergency room revealed coronavirus infection with infiltrates on chest x-ray. Because of patient's oxygen requirement he was admitted to the Covid unit on supplemental oxygen. O2 sats on presentation were in the mid 80s. Since admission patient is made O2 sats in the 90s on 3 L of oxygen. This morning he reports having a cough for several days that is mostly nonproductive. He does believe he is feeling better this morning. Over the last week he has continued to have occasional diarrhea with discomfort in his mid back. He denies fevers, chills, loss of smell or taste, myalgias, vomiting. Hospital Course Hospital Course: Patient was admitted as he was requiring supplemental oxygen support to keep O2 sats in the 90s. Patient was started on Covid protocol including remdesivir and dexamethasone. Patient was admitted and during his hospitalization was able to maintain sats on 2 to 3 L/min via the nasal cannula. Patient denies shortness of breath during hospitalization. Cough was minimal. Energy level was good. Appetite was normal. After period of observation with no signs of worsening clinical picture patient was discharged home. He was still requiring supplemental oxygen at discharge so home oxygen will be arranged with concentrator and portable oxygen. Patient will follow-up as an outpatient. Patient was started on sliding scale insulin due to history of hyperglycemia while taking steroids. Patient was continued on all other home medications while hospitalized. Objective Vital signs: Temp Pulse Resp BP Pulse Ox 98.1 F 80 22 129/77 84 L 07/19/20 03:26 07/19/20 04:00 07/19/20 03:26 07/19/20 03:26 07/19/20 03:53 no acute distress - *Routine HEENT Exam Head: Present: normocephalic Eye: Present: EOMI, PERRL ENT: Present: mucous membranes moist - *Routine Neck Exam Present: supple - *Routine Respiratory Exam Present: rhonchi (Right base) - *Routine Cardiovascular Exam Present: RRR - *Routine Abdominal Exam Present: soft, normoactive bowel sounds. Absent: tenderness - *Routine Extremities Exam Absent: cyanosis, clubbing, edema - *Routine Skin Exam Present: warm. Absent: rash - Detailed Eye Exam Eyelids: Bilateral normal inspection Results Labs on day of discharge: Labs from last 24 hours 07/19/20 07/19/20 07/18/20 05:18 05:15 16:25 Sodium 143 Potassium 4.3 Chloride 106 Carbon Dioxide 23 Anion Gap 18.3 H BUN 51 H D Creatinine 1.90 H Estimated Creat Clear 40 Estimated GFR 34 L Est GFR ( Amer) 41 L Glucose 147 H POC Glucose 153 H 174 H Calcium 9.3 C-Reactive Protein 52.4 H 07/18/20 11:28 Sodium Potassium Chloride Carbon Dioxide Anion Gap BUN Creatinine Estimated Creat Clear Estimated GFR Est GFR ( Amer) Glucose POC Glucose 136 H Calcium C-Reactive Protein Preliminary micro results at discharge 07/16/20 13:08 Blood Culture - Preliminary Blood NO GROWTH AFTER 48 HOURS 07/16/20 13:08 Blood Culture - Preliminary Blood NO GROWTH AFTER 48 HOURS DS: Diagnosis - Discharge Diagnosis (1) Pneumonia due to COVID-19 virus Status: Acute (2) Coronary artery disease Status: Chronic (3) 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
[2020-07-19 08:00] VITALS: BP 141/95; PULSE 92; RESP 20; TEMP 37.3; O2SAT 90
--- NOTE | 2020-07-19 08:54 | SW/DCPLANNER ---
PATIENT IS DISCHARGING HOME TODAY AND HAS A NEED FOR HOME 02... THIS HAS BEEN SET UP WITH [facility] FOR A TANK TO BE DELIVERED PRIOR TO PATIENT LEAVING...PATIENT WAS NOT HAPPY ABOUT BEING ADMITTED BUT 02 SATS WERE IN THE LOW 70'S.. PATIENT CHOSE [facility] AND THIS IS ON ITS WAY TO BE DELIVERED...
== END 2020-07-19 09:53 | disposition home or self-care (01) | DRG 177 ==
LOC: UTC 10:52 → ER 12:45 → ICU 18:16
PROVIDERS: Family Medicine; Admitting Provider Family Medicine; Emergency Provider Nurse Practitioner; PCP Family Medicine; Visit Provider Family Medicine
DX: U07.1 COVID-19 (principal); J96.01 Acute respiratory failure with hypoxia; J12.82 Pneumonia due to coronavirus disease 2019; E78.5 Hyperlipidemia, unspecified; I25.2 Old myocardial infarction; M19.90 Unspecified osteoarthritis, unspecified site; E87.70 Fluid overload, unspecified; I12.9 Hypertensive chronic kidney disease with stage 1 through stage 4 chronic kidney disease, or unspecified chronic kidney disease; N18.32 Chronic kidney disease, stage 3b; E11.22 Type 2 diabetes mellitus with diabetic chronic kidney disease; I25.10 Atherosclerotic heart disease of native coronary artery without angina pectoris; Z79.02 Long term (current) use of antithrombotics/antiplatelets; Z79.82 Long term (current) use of aspirin; Z79.899 Other long term (current) drug therapy; Z79.891 Long term (current) use of opiate analgesic; Z88.8 Allergy status to other drugs, medicaments and biological substances; Z95.5 Presence of coronary angioplasty implant and graft; Z95.1 Presence of aortocoronary bypass graft; Z87.891 Personal history of nicotine dependence; Z82.49 Family history of ischemic heart disease and other diseases of the circulatory system; Z83.438 Family history of other disorder of lipoprotein metabolism and other lipidemia
CPT/HCPCS: 71045; 80048; 80053; 80076; 82962; 83880; 84484; 85025; 86140; 87040; 93005; 99285; U0003

== ENCOUNTER 2020-07-22 11:13 | Inpatient (IN) | payer MEDICARE, SELFPAY ==
[2020-07-22] VITALS (18 sets, daily range): BP systolic 129–166; BP diastolic 73–104; PULSE 76–100; RESP 18–44; TEMP 36.1–37.5; O2SAT 79–95; BMI 35.5; BMI 32.1
--- NOTE | 2020-07-22 11:19 | HMH.EDGENADL ---
ED Disposition Clinical Impression: Pneumonia due to COVID-19 virus Respiratory failure with hypoxia Qualifiers: Chronicity: acute Qualified Code(s): J96.01 - Acute respiratory failure with hypoxia Disposition: Admitted As Inpatient Condition on Discharge: Serious - Critical Care Critical Care Time: Yes Attestation: On , the high probability of a clinically significant, sudden or life threatening deterioration of the following system(s) required my full and direct attention, intervention and personal management. The time I documented below is in addition to time spent performing reported procedures but includes the following listed in this critical care notation. Total Critical Care Time: 35 Vital system(s) involved:: Respiratory Failure My critical care processes included: Assessment & monitoring of V/S, Initial and Re-exams, Data Review/Interpretation, Coordinating Care, Medication Orders and management, Documentation Medical Decision Making - Medical Records Medical records reviewed: Yes: I reviewed the patient's medical records. MR Comment: Reviewed discharge summary from recent admission for Covid pneumonia. - Maximus Inquiry Pt receiving controlled substance: No Vital Signs: 07/22/20 11:13 07/22/20 11:15 07/22/20 11:20 Temperature 99.5 F Temperature Source Oral Pulse Rate Pulse Rate [Radial] 96 H Respiratory Rate 44 H Blood Pressure Blood Pressure [Right Radial Artery] 146/90 H Blood Pressure Mean [Right Radial Artery] 108 Blood Pressure Source [Right Radial Artery] Blood Pressure Position Blood Pressure Position [Right Radial Artery] Sitting 02 Sat by Pulse Oximetry 79 L 88 L 93 L Oxygen Delivery Method Nasal Cannula Nasal Cannula Venturi Mask Oxygen Flow Rate (LPM) 3 4.5 50 07/22/20 11:38 07/22/20 11:48 07/22/20 12:17 Temperature Temperature Source Pulse Rate Pulse Rate [Radial] 92 H 94 H 93 H Respiratory Rate 18 20 20 Blood Pressure Blood Pressure [Right Radial Artery] 156/89 H 137/83 129/79 Blood Pressure Mean [Right Radial Artery] 111 101 95 Blood Pressure Source [Right Radial Artery] Automatic Cuff Automatic Cuff Automatic Cuff Blood Pressure Position Blood Pressure Position [Right Radial Artery] Sitting Sitting Sitting 02 Sat by Pulse Oximetry 91 L 92 L 92 L Oxygen Delivery Method Venturi Mask Venturi Mask Venturi Mask Oxygen Flow Rate (LPM) 07/22/20 12:44 07/22/20 13:28 07/22/20 13:37 Temperature Temperature Source Pulse Rate Pulse Rate [Radial] 100 H 98 H 97 H Respiratory Rate 20 20 20 Blood Pressure Blood Pressure [Right Radial Artery] 153/87 H 151/87 H 146/86 H Blood Pressure Mean [Right Radial Artery] 109 108 106 Blood Pressure Source [Right Radial Artery] Automatic Cuff Automatic Cuff Automatic Cuff Blood Pressure Position Blood Pressure Position [Right Radial Artery] Sitting Sitting 02 Sat by Pulse Oximetry 94 L 90 L 91 L Oxygen Delivery Method Venturi Mask Venturi Mask Venturi Mask Oxygen Flow Rate (LPM) 07/22/20 13:43 07/22/20 14:24 07/22/20 14:39 Temperature Temperature Source Pulse Rate Pulse Rate [Radial] 98 H 88 94 H Respiratory Rate 40 H 22 22 Blood Pressure Blood Pressure [Right Radial Artery] 145/85 H 153/98 H Blood Pressure Mean [Right Radial Artery] 105 116 Blood Pressure Source [Right Radial Artery] Automatic Cuff Blood Pressure Position Blood Pressure Position [Right Radial Artery] Sitting Sitting 02 Sat by Pulse Oximetry 92 L 93 L 95 Oxygen Delivery Method Venturi Mask Venturi Mask Venturi Mask Oxygen Flow Rate (LPM) 50 07/22/20 15:12 07/22/20 16:11 07/22/20 16:48 Temperature 99 F Temperature Source Oral Pulse Rate 87 Pulse Rate [Radial] 91 H 86 Respiratory Rate 20 20 40 H Blood Pressure 153/92 H Blood Pressure [Right Radial Artery] 133/85 166/104 H Blood Pressure Mean [Right Radial Artery] 101 124 Blood Pressure Source [Right Radial Artery] Automati
--- NOTE | 2020-07-22 11:20 | PC.NURSE ---
PT PLACED ON ROYER MASK AT 50%
--- NOTE | 2020-07-22 11:22 | XR_ITS ---
PROCEDURE: XR CHEST PORTABLE CLINICAL HISTORY: soa Shortness of air, pneumonia COMPARISON: DX CXR2V XR chest 2V from 03/13/[address] chest wo con from 04/04/2018 CR XR CHEST PORTABLE from 07/11/2020 CR XR CHEST PORTABLE from 07/16/2020 FINDINGS: Prior CABG. Cardiomegaly without failure. Bilateral lower lobe consolidation is present consistent with pneumonia which is worse on both sides. The pneumonia is more extensive on the right compared to the left. No acute bony abnormalities. IMPRESSION: Worsening bilateral lower lobe pneumonia Dictated by: Brannon Mcdonald MD 07/22/2020 11:53 Brannon Mcdonald MD in [facility] 07/22/2020 11:53
--- NOTE | 2020-07-22 11:28 | ECG_ITS ---
APPROVED REPORT Exam: Resting ECG HR:93 bpm ECG Measurements Heart Rate 93 AXES SC 178 P 20 QRSd 146 QRS 260 QT 414 T -1 QTc 514 Conclusion Normal sinus rhythm Right bundle branch block Lateral infarct, age undetermined Abnormal ECG Electronically signed by : Andriy Barrios, 07/22/2020 19:42:05
[2020-07-22 11:36] LABS: Basophils # 0.1 K/mm3 (0-0.2); Basophils % 0.4 % (0.1-2.0); Eosinophils % 0.2 % (0.1-12.0); Hematocrit 40.1 % (42.0-52.0); Hemoglobin 12.5 g/dL (14.1-18.0); Lymphocytes # 1.1 K/mm3 (0.7-4.5); Lymphocytes % 7.8 % (10-50); Mean Corpuscular HGB Conc 31.2 g/dL (31.8-35.4); Mean Corpuscular Hemoglobin 31.1 pg (27.0-31.2); Mean Corpuscular Volume 99.6 fl (80-94); Mean Platelet Volume 7.6 fl (7.4-10.4); Monocytes # 0.8 K/mm3 (0.1-1.0); Neutrophils % 85.6 % (37.0-80.0); Platelet Count 306 K/mm3 (142-424); Red Blood Count 4.03 M/mm3 (4.60-6.20); Red Cell Distribution Width 14.7 % (11.5-17.5)
[2020-07-22 11:40] LABS: MANUAL DIFFERENTIAL MANUAL DIFFERENTIAL (MANUAL DIFF)
[2020-07-22 11:47] LABS: Lymphocytes % 15 % (10-50); Monocytes % 7 % (2-9); Neutrophils % 78 % (42-76); Platelet Estimate Normal; RBC Morphology Normal; Total Cells Counted 100
[2020-07-22 11:53] LABS: Anion Gap 13.1 mEq/L (5-15); Blood Urea Nitrogen 35 mg/dl (9-20); Carbon Dioxide 25 mmol/L (22.0-30.0); Chloride 107 mmol/L (98-107); Creatinine Clearance Estimated 50 mL/min (50-200); Estimated Glomerular Filt Rate 42 ml/min (>60); GFR (African American) 50 ML/MIN (>60); Glucose 138 mg/dl (74-100); Potassium 4.1 mmoL/L (3.5-5.1); Sodium 141 mmol/L (136-145)
[2020-07-22 11:58] LABS: D-Dimer 5.15 ug/mL (0.15-8.0)
[2020-07-22 12:07] LABS: Troponin I 0.04 ng/ml (0.00-0.034)
[2020-07-22 12:11] LABS: ABG Base Excess -4.9 mmol/L (-2.4-2.3); ABG HCO3 19.1 mmhg (22.0-26.0); ABG Oxygen Saturation 92 % (90-100); ABG PCO2 28.3 mmhg (35.0-45.0); ABG PH 7.45 mmol/L (7.35-7.45); ABG PO2 60.2 mmhg (80-100)
[2020-07-22 12:12] LABS: Oxygen 50% %
[2020-07-22 12:13] LABS: Source R BRACHIAL
[2020-07-22 12:19] LABS: Procalcitonin 0.131 ng/mL (0.0-2.0)
--- NOTE | 2020-07-22 12:22 | CT_ITS ---
PROCEDURE: CT ANGIO CHEST CLINCIAL INDICATION: hypoxia, covid-19, r/o PE COMPARISON: CT CHESTWO CT chest wo con from 04/04/2018 TECHNIQUE: IV Contrast: 70ML Isovue 370 Axial images obtained with sagittal and coronal reformats. All CT scans at the facility use one or more dose reduction, viz: automated exposure control, ma/kV adjustment per patient size (including targeted exams where dose is matched to indication, i.e. head), or iterative reconstruction technique. FINDINGS: There is tortuosity the thoracic aorta. No evidence of aortic aneurysm or dissection. The peripheral pulmonary arteries are not well opacified due to motion artifact. No central pulmonary embolus is evident. There has been a prior median sternotomy with CABG. Scattered small nodes are present within the mediastinum and right hilum and subcarinal region. There is cardiomegaly. There is mild thickening of the distal esophagus which is nonspecific. There is diffuse consolidation in the right upper lobe, right lower lobe, right middle lobe, and left lower lobe. No cavitation. There is trace right-sided effusion. Upper abdominal images show increased density in the posterior aspect of the gallbladder consistent with gallstones. There is mild upper thoracic scoliosis convex left and midthoracic scoliosis convex right. Partially imaged left renal cyst noted. IMPRESSION: 1. No evidence of pulmonary embolus or aortic aneurysm or dissection. 2. Bilateral pneumonia with trace right effusion. 3. Mild mediastinal adenopathy. 4. Cholelithiasis Dictated by: Brannon Mcdonald MD 07/22/2020 14:11 Brannon Mcdonald MD in [facility] 07/22/2020 14:11
--- NOTE | 2020-07-22 12:30 | PC.NURSE ---
PT CONTINUES ON VENIMASK AT 50%.
--- NOTE | 2020-07-22 13:00 | PC.NURSE ---
PT GIVEN ICE CHIPS
--- NOTE | 2020-07-22 14:00 | PC.NURSE ---
PT UP TO SIDE OF BED TO URINATE, PT BECAME EXTREMELY SOB, O2 SATS DROPPED TO 82% ON 50% VENIMASK
--- NOTE | 2020-07-22 14:30 | PC.NURSE ---
PT WRITHING ON STRETCHER, C/O PAIN
--- NOTE | 2020-07-22 14:37 | PC.NURSE ---
Care management called for bed placement
--- NOTE | 2020-07-22 14:38 | INFXCTL.NOTE ---
SPOKE WITH PT'S PER TELEPHONE AND UPDATED ON PLAN OF CARE
--- NOTE | 2020-07-22 15:13 | PC.NURSE ---
CALLED FLOOR, PT READY FOR ADMISSION
--- NOTE | 2020-07-22 16:01 | PC.NURSE ---
CALLED TO FLOOR PT READY FOR ADMISSION
--- NOTE | 2020-07-22 16:44 | PC.NURSE ---
REPORT GIVEN TO MARK OLIVER
--- NOTE | 2020-07-22 17:14 | HMH.HP ---
*Admission Date: 07/22/20 *Chief complaint: Shortness of breath *History of present illness: 84-year-old male with recent diagnosis of COVID-19 infection and was hospitalized in this facility from July 16 through July 19 presented to the emergency department via EMS after increasing shortness of breath at home. Patient was wearing oxygen when he was found by EMS with O2 sats of 88%. He was transported to the ER where O2 sats dropped and patient was ultimately placed on a Ventimask to keep O2 sats greater than 90. He has been admitted to the special care unit. Patient reports shortness of breath worsening almost immediately upon leaving the hospital although his mental status has not been at baseline on this admission so far. Patient has been admitted and placed on Remdesivir and dexamethasone. Patient had originally presented to the emergency department for the first time on July 11 with some mild GI complaints and I do suspect this was the beginning of his Covid illness. During his recent hospitalization he was discharged home with oxygen set at 3 L/min via nasal cannula. Prior to discharge patient had maintained O2 sats in the low 90s on supplemental oxygen. Pneumonia had been identified on chest x-ray associated with his first admission [facility] History I have reviewed the patient's past medical history: Yes Medical History: Reports:: Arrhythmia, Atherosclerotic Heart Disease, Coronary Artery Disease, Diabetes Mellitus Type 2, Heart Murmur, Hyperlipidemia, Hypertension, Myocardial Infarction Denies:: Cancer, Diabetes Mellitus Type 1, MRSA *Have you ever received a pneumonia vaccine?: Yes *Have you received a flu vaccine this season?: Yes Other Medical History: Reports: Arthritis Other Surgeries: Yes: Angiogram, CABG, Cardiac Catheterization, Cardiac Surgery, Coronary Stent, Open Heart Surgery, Other (Lumbar spine surgery) Amputation: No Fractures: No - *Social History Smoking Status: Former smoker Tobacco Type: cigarettes Alcohol Intake: never *Occupational Status:: other Housing: other Household Members: other *Travel in the last 8 weeks: None Family Hx:: Cancer, Coronary Artery Disease, Diabetes, Heart Attack, Hyperlipidemia, Hypertension Review of Systems - Constitutional Reports anorexia, Denies body ache(s), Denies chills - ENT Denies change in voice, Denies ear pain, Denies nosebleed - *Cardiovascular Denies chest pain, Denies chest pain at rest, Denies chest pain with activity - *Respiratory Reports chest congestion, Reports cough, Reports shortness of breath, Denies change in phlegm color - *Gastrointestinal Denies abdominal pain, Denies belching, Denies bloating - *Genitourinary Denies difficulty urinating, Denies painful urination - *Musculoskeletal Denies abnormal walking, Denies joint pain, Denies decreased muscle mass - Integumentary/Breasts Denies bleeding lesions, Denies change in hair, Denies nail changes (Was it greatly is prone plan absolutely having you did not have gravies mad) - *Neurologic Denies localized weakness, Denies numbness Meds Home Medications Medication Instructions Recorded Confirmed Type Aspirin [Aspir 81] 81 mg PO DAILY 01/07/18 07/22/20 History Cholecalciferol (Vitamin D3) 2,000 unit PO DAILY 01/07/18 07/22/20 History [Vitamin D3 1,000 Unit Cap] Labetalol HCl [Normodyne 100mg 200 mg PO BID 01/07/18 07/22/20 History tablet] Pravastatin Sodium [Pravachol] 40 mg PO DAILY 01/07/18 07/22/20 History allopurinoL [Allopurinol 300mg 300 mg PO DAILY 01/07/18 07/22/20 History tablet] Amlodipine Besylate [Norvasc 5mg 5 mg PO BID 07/16/20 07/22/20 History tablet] Bumetanide 1 mg PO BID 07/16/20 07/22/20 History Furosemide [Furosemide 20mg Tab*] 20 mg PO DAILY 07/16/20 07/22/20 History Valsartan [Valsartan 80mg 80 mg PO DAILY 07/16/20 07/22/20 History Tablets] Allergies Allergy/AdvReac Type Severity Reaction Status Date / Time No Known Allergies Al
--- NOTE | 2020-07-22 18:16 | PC.NURSE ---
Cup given to pt. for SPT.
--- NOTE | 2020-07-22 19:23 | PC.NURSE ---
Spoke with Rajani in ED and she stated med given was cefapime.
[2020-07-23] VITALS (7 sets, daily range): BP systolic 115–129; BP diastolic 60–71; PULSE 68–77; RESP 20–24; TEMP 36.6–37; O2SAT 87–94; BMI 35.8
--- NOTE | 2020-07-23 06:54 | HMH.ACPN2 ---
Internal Medicine - PN: Subj *Date: 07/23/20 *Time: 06:54 Interval history: Patient is remained stable overnight. There was an attempt to wean O2 but this resulted in desaturation to 87% and patient never continues on Ventimask at 50% FiO2. Patient does struggle with answering questions this morning and I am not sure whether it is because the room is very loud from the negative pressure system or whether there is some cognitive impairment. Exam Vital signs and Labs for Last 24 Hours: Temp Pulse Resp BP Pulse Ox 98.1 F 71 22 119/67 87 L 07/23/20 04:00 07/23/20 04:00 07/23/20 04:00 07/23/20 04:00 07/23/20 04:10 Laboratory Results - last 24 hr 07/22/20 11:10: WBC 14.0 H, RBC 4.03 L, Hgb 12.5 L, Hct 40.1 L, MCV 99.6 H, MCH 31.1, MCHC 31.2 L, RDW 14.7, Plt Count 306, MPV 7.6, Neut % (Auto) 85.6 H, Lymph % (Auto) 7.8 L, [place] % (Auto) 6.0, Eos % (Auto) 0.2, Baso % (Auto) 0.4, Neut # (Auto) 12.0 H, Lymph # (Auto) 1.1, [place] # (Auto) 0.8, Eos # (Auto) 0.0, Baso # (Auto) 0.1, Total Counted 100, Neutrophils % (Manual) 78 H, Lymphocytes % (Manual) 15, Monocytes % (Manual) 7, Platelet Estimate Normal, RBC Morphology Normal 07/22/20 11:10: Sodium 141, Potassium 4.1, Chloride 107, Carbon Dioxide 25, Anion Gap 13.1, BUN 35 H, Creatinine 1.60 H, Estimated Creat Clear 50, Estimated GFR 42 L, Est GFR ( Amer) 50 L, Glucose 138 H, Calcium 9.0, Troponin I 0.04 H 07/22/20 11:10: D-Dimer 5.15 07/22/20 11:10: Procalcitonin 0.131 07/22/20 11:22: Specimen Source R brachial, O2 % 50%, ABG pH 7.45, ABG pCO2 28.3 L, ABG pO2 60.2 L, ABG HCO3 19.1 L, ABG Total CO2 20.0 L, ABG O2 Saturation 92, ABG Base Excess -4.9 L I & O for Last 24 hours: Intake & Output 07/20/20 07/21/20 07/22/20 07/23/20 11:59 11:59 11:59 11:59 Intake Total 490 / 490 Output Total 650 / 650 Balance -160 / -160 Weight 220 lb 440 lb 14.792 oz Narrative: Patient has mild tachypnea. Oropharynx is moist. Heart has a regular rate and rhythm. Lungs have some left basilar rales and right posterior midlung rales. Abdomen is obese and soft. Lower extremities have 1-2+ edema. Assessment and Plan (1) Pneumonia due to COVID-19 virus Status: Acute Category: Medical Code(s): U07.1 - COVID-19; J12.82 - Pneumonia due to coronavirus disease 2019 (2) Respiratory failure with hypoxia Status: Acute Qualifiers: Chronicity: acute Qualified Code(s): J96.01 - Acute respiratory failure with hypoxia Category: Medical Code(s): J96.91 - Respiratory failure, unspecified with hypoxia (3) Coronary artery disease Status: Chronic Qualifiers: Coronary Disease-Associated Artery/Lesion type: [place] artery [place] vs. transplanted heart: [place] heart Associated angina: without angina Qualified Code(s): I25.10 - Atherosclerotic heart disease of [place] coronary artery without angina pectoris Category: Medical Code(s): I25.10 - Atherosclerotic heart disease of [place] coronary artery without angina pectoris (4) 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 Category: Medical Code(s): N18.32 - Chronic kidney disease, stage 3b - Assessment and plan all Dx Assessment and Plan for all problems:: 1. Continue dexamethasone, Remdesivir, vitamin C&D, zinc with goal sats of above 90% and is close to 94% as possible 2. Pulmonology consult today 3. Await morning labs and repeat procalcitonin. Continue cefepime and azithromycin to cover the possibility of superimposed bacterial pneumonia for now
[2020-07-23 07:05] LABS: Basophils % 0.4 % (0.1-2.0); Eosinophils % 0.1 % (0.1-12.0); Hematocrit 39.6 % (42.0-52.0); Lymphocytes # 0.7 K/mm3 (0.7-4.5); Lymphocytes % 5.8 % (10-50); Mean Corpuscular HGB Conc 32.8 g/dL (31.8-35.4); Mean Corpuscular Hemoglobin 32.3 pg (27.0-31.2); Mean Corpuscular Volume 98.7 fl (80-94); Mean Platelet Volume 8.5 fl (7.4-10.4); Monocytes # 0.6 K/mm3 (0.1-1.0); Monocytes % 4.8 % (1.7-9.3); Neutrophils # 10.4 K/mm3 (1.8-7.8); Neutrophils % 88.9 % (37.0-80.0); Platelet Count 315 K/mm3 (142-424); Red Blood Count 4.01 M/mm3 (4.60-6.20); Red Cell Distribution Width 15.2 % (11.5-17.5); White Blood Count 11.7 K/mm3 (4.8-10.8)
[2020-07-23 07:08] LABS: MANUAL DIFFERENTIAL MANUAL DIFFERENTIAL (MANUAL DIFF)
[2020-07-23 07:12] LABS: Alanine Aminotransferase 35 U/L (12-78); Albumin Level 3.4 g/dl (3.5-5.0); Alkaline Phosphatase 95 U/L (38-126); Anion Gap 14.3 mEq/L (5-15); Aspartate Amino Transferase 47 U/L (17-59); Bilirubin,Total 0.6 mg/dl (0.2-1.3); Blood Urea Nitrogen 35 mg/dl (9-20); Calcium 8.8 mg/dl (8.4-10.2); Carbon Dioxide 23 mmol/L (22.0-30.0); Chloride 112 mmol/L (98-107); Creatinine Clearance Estimated 37 mL/min (50-200); Estimated Glomerular Filt Rate 49 ml/min (>60); GFR (African American) 59 ML/MIN (>60); Globulin 3.5 g/dL (1.3-3.2); Glucose 181 mg/dl (74-100); Potassium 4.3 mmoL/L (3.5-5.1); Sodium 145 mmol/L (136-145); Total Protein,Serum 6.9 g/dl (6.3-8.2)
[2020-07-23 07:38] LABS: Lymphocytes % 10 % (10-50); Monocytes % 1 % (2-9); Neutrophils % 89 % (42-76); Platelet Estimate Normal; RBC Morphology Normal; Total Cells Counted 100
[2020-07-23 07:54] LABS: POC Glucose,Bedside 173 (70-110)
[2020-07-23 07:54] LABS: POC Glucose,Bedside 139 (70-110)
--- NOTE | 2020-07-23 07:56 | PC.NURSE ---
Pt is oriented x3 and has been drowsy t/o most of the shift. Pt awakens easily, follows commands appropriately, although falls asleep easily. Pt had an episode of bowel and bladder incontinence this shift. Pt has been up to chair 1x this shift and tolerated ambulation well. BM was loose. Crackles to L base and diminished t/o on auscultation. SaO2 90-94% on Venti @ 50% FiO2. Titrated to 40% Fio2 and sat decreased to 87% quickly. Pitting edema +1-2 to BLE. Pt has been afebrile this shift. Call light within reach.
--- NOTE | 2020-07-23 08:07 | HMH.PHAVTE ---
[facility] Pharmacy VTE Monitoring - Patient Demographics Admission date: 07/22/20 Report Date: 07/23/20 Time: 08:07 Allergies/Adverse Reactions: Patient Allergies No Known Allergies Allergy (Verified 01/07/18 21:25) Height: 1.68 m Weight: 200 kg Patient Problems: Current Active Problems Respiratory failure with hypoxia (Acute) Pneumonia due to COVID-19 virus (Acute) Coronary artery disease (Chronic) Stage 3b chronic kidney disease (Chronic) - VTE Risk Labs: VTE Related Lab Results Hgb 13.0 g/dL (14.1-18.0) L 07/23/20 06:25 Hct 39.6 % (42.0-52.0) L 07/23/20 06:25 Plt Count 315 K/mm3 (142-424) 07/23/20 06:25 BUN 35 mg/dl (9-20) H 07/23/20 06:25 Creatinine 1.40 mg/dl (0.66-1.25) H 07/23/20 06:25 Estimated Creat Clear 37 mL/min (50-200) 07/23/20 06:25 - Prophylaxis VTE Prophylaxis Ordered?: Yes Types of VTE Prophylaxis: TEDS Knee High, Pharmacological Location of Applied Device: Bilateral Lower Extremeties Pharmacologic Type: Enoxaparin
--- NOTE | 2020-07-23 08:11 | PC.NURSE ---
Pt had pulled PIV (LAC) out accidentally when getting OOB on own. New PIV placed to RAC with 4x attempts. Cefepime hung late d/t this reason.
[2020-07-23 11:39] LABS: POC Glucose,Bedside 162 (70-110)
--- NOTE | 2020-07-23 13:20 | HMH.PHAINT ---
MEDICATION RECONCILIATION COMPLETED ON PATIENT USING EXTERNAL FILL HISTORY FROM PHARMACY. -CARLOS ALBERTO GUTIERREZ, DEEPAKD
--- NOTE | 2020-07-23 14:25 | HMH.PULMCON ---
*Admission Date: 07/22/20 *Reason for consult:: Acute hypoxic respiratory failure. COVID-19 pneumonia. *History of present illness: Mr. Rosas is a 84-year-old male with recent COVID-19 infections hospitalized for 4 days and was discharged, complained of progressively worsening shortness of breath sensation presented to the hospital today and on presentation patient needing Ventimask to maintain his sats predominantly admitted isolation unit and pulmonary was called for further management. [facility] History Medical History: Reports:: Arrhythmia, Atherosclerotic Heart Disease, Coronary Artery Disease, Heart Murmur, Hyperlipidemia, Hypertension, Myocardial Infarction Denies:: Cancer, Diabetes Mellitus Type 1, Diabetes Mellitus Type 2, MRSA *Have you ever received a pneumonia vaccine?: No *Have you received a flu vaccine this season?: Yes Other Medical History: Reports: Arthritis Other Surgeries: Yes: Angiogram, CABG, Cardiac Catheterization, Cardiac Surgery, Coronary Stent, Open Heart Surgery, Other (Lumbar spine surgery) Amputation: No Fractures: No - *Social History Smoking Status: Former smoker Tobacco Type: cigarettes Alcohol Intake: never *Occupational Status:: retired Housing: other Household Members: spouse *Travel in the last 8 weeks: None Family Hx:: Unable to obtain ROS - Review of Systems Review of systems:: pertinent systems reviewed and negative unless documented below - Cons Reports anorexia, Reports body ache(s), Reports chills - Card Reports shortness of breath, Reports shortness of breath with activity - Resp Respiratory: Reports change in phlegm color, Reports chest congestion, Reports cough, Reports dyspnea on exertion, Reports excessive phlegm production - GI Gastrointestingal: Reports: system reviewed and no additional complaints, except as docu Meds Home Medications Medication Instructions Recorded Confirmed Type Cholecalciferol (Vitamin D3) 2,000 unit PO DAILY 01/07/18 07/22/20 History [Vitamin D3 1,000 Unit Cap] Labetalol HCl [Normodyne 100mg 200 mg PO BID 01/07/18 07/22/20 History tablet] Pravastatin Sodium [Pravachol] 40 mg PO DAILY 01/07/18 07/22/20 History allopurinoL [Allopurinol 300mg 300 mg PO DAILY 01/07/18 07/22/20 History tablet] Amlodipine Besylate [Norvasc 5mg 5 mg PO BID 07/16/20 07/22/20 History tablet] Bumetanide 1 mg PO BID 07/16/20 07/22/20 History Furosemide [Furosemide 20mg Tab*] 20 mg PO BID 07/16/20 07/23/20 History Valsartan [Valsartan 80mg 80 mg PO DAILY 07/16/20 07/22/20 History Tablets] Aspirin [Aspirin 81mg EC Tab] 81 mg PO DAILY 07/23/20 07/23/20 History Tramadol HCl [Tramadol 50mg 50 mg PO Q6HP PRN 07/23/20 07/23/20 History Tab] Allergies Allergy/AdvReac Type Severity Reaction Status Date / Time No Known Allergies Allergy Verified 01/07/18 21:25 Exam - Constitutional Constitutional:: no acute distress, comfortable - HENMT Exam HENMT: normocephalic, atraumatic - Eye Exam Eyes:: eyelids normal - Neck Exam Neck:: thyroid normal, no lymphadenopathy - Respiratory Exam Respiratory:: able to speak in complete sentences Comments: Patient in mild respiratory distress. Bilateral coarse breath sound significantly worse on the right than on the left side. - Cardiovascular Exam Cardiac:: S1, S2 - GI Exam GI:: soft, no hepatosplenomegaly - Skin Exam Skin: warm, no rash - Neurological Exam Neurological: awake, normal cognition - Extremities Exam Extremities: no cyanosis, no clubbing, no edema, edema - Psychiatric Exam Psychiatric: normal affect Internal Medicine - CN: Reslt - Labs CBC & Chem 7: 07/23/20 06:25 07/23/20 06:25 Labs: Short CBC 07/23/20 Range/Units 06:25 WBC 11.7 H (4.8-10.8) K/mm3 Hgb 13.0 L (14.1-18.0) g/dL Hct 39.6 L (42.0-52.0) % Plt Count 315 (142-424) K/mm3 BMP 07/23/20 06:25 Sodium 145 Potassium 4.3 Chloride 112 H Carbon Dioxide
--- NOTE | 2020-07-23 16:43 | PC.NURSE ---
PATIENT HAS BEEN A&O X3. LUNG ON LEFT SIDE IS DIMINISHED, LUNG ON RIGHT SIDE HAS RHONCHI THROUGHOUT. PATIENT BEGAN PUTTING HIS JACKET ON, THIS RN INQUIRED TO WHAT HE WAS DOING, PATIENT STATED THAT HE WAS LEAVING. THIS RN REMINDED PATIENT THAT HE WAS IN THE HOSPITAL AND NEEDED TO STAY TO GET WELL. PATIENT THEN STATED OH OKAY, LAID DOWN IN BED AND IS RESTING AT THIS TIME. PATIENT HAS SAT ON SIDE OF BED FOR MEALS AND TOLERATED WELL. PATIENT HAS HAD 900 ML OF URINE OUTPUT THUS FAR. NO OTHER CONCERNS AT THIS TIME.
[2020-07-23 21:49] LABS: POC Glucose,Bedside 211 (70-110)
--- NOTE | 2020-07-23 23:18 | PC.NURSE ---
Pt has been impulsive and resistive to care so far this shift. Pt pulled out PIV. After 8 attempts by 3 different nurses, PIV was inserted in pt's RAC. Pt refused insulin this shift for FSBS of 211. PT has torn apart IV tubing and primary tubing needed to be replaced. Pt has shown some confusion, but has remained A&O. Pt has refused a bath and bed change so far this shift. Will reevaluate in the morning.
[2020-07-24] VITALS (7 sets, daily range): BP systolic 124–135; BP diastolic 62–80; PULSE 69–89; RESP 20–24; TEMP 36.2–36.8; O2SAT 84–94; BMI 36.2
[2020-07-24 06:31] LABS: Basophils % 0.2 % (0.1-2.0); Hematocrit 37.2 % (42.0-52.0); Hemoglobin 12.1 g/dL (14.1-18.0); Lymphocytes # 0.8 K/mm3 (0.7-4.5); Mean Corpuscular HGB Conc 32.5 g/dL (31.8-35.4); Mean Corpuscular Hemoglobin 32.2 pg (27.0-31.2); Mean Platelet Volume 8.6 fl (7.4-10.4); Monocytes # 1.3 K/mm3 (0.1-1.0); Monocytes % 6.5 % (1.7-9.3); Neutrophils # 18.2 K/mm3 (1.8-7.8); Neutrophils % 89.3 % (37.0-80.0); Platelet Count 332 K/mm3 (142-424); Red Blood Count 3.76 M/mm3 (4.60-6.20); Red Cell Distribution Width 15.3 % (11.5-17.5); White Blood Count 20.3 K/mm3 (4.8-10.8)
[2020-07-24 06:35] LABS: MANUAL DIFFERENTIAL MANUAL DIFFERENTIAL (MANUAL DIFF)
[2020-07-24 06:40] LABS: Alanine Aminotransferase 31 U/L (12-78); Albumin/Globulin Ratio 0.9 (1.1-1.8); Alkaline Phosphatase 91 U/L (38-126); Aspartate Amino Transferase 39 U/L (17-59); Bilirubin,Total 0.5 mg/dl (0.2-1.3); Blood Urea Nitrogen 49 mg/dl (9-20); Calcium 8.7 mg/dl (8.4-10.2); Carbon Dioxide 23 mmol/L (22.0-30.0); Chloride 113 mmol/L (98-107); Creatinine Clearance Estimated 52 mL/min (50-200); Estimated Glomerular Filt Rate 42 ml/min (>60); GFR (African American) 50 ML/MIN (>60); Globulin 3.5 g/dL (1.3-3.2); Glucose 166 mg/dl (74-100); Sodium 143 mmol/L (136-145); Total Protein,Serum 6.5 g/dl (6.3-8.2)
--- NOTE | 2020-07-24 06:40 | PC.NURSE ---
Pt was A&Ox4 at the beginning of shift, but slowly became oriented to person only. Pt has made many impulsive moves this shift such as puling at IV, removing pulse ox from hand, disconnecting venturi mask, and trying to ambulate out of negative pressure room. Pt has not been easy to reorient, but does after several minutes of assuring pt why he was here and that he is safe. Coarse crackles heard bilaterally t/o per auscultation. No cough noted. At one point this shift, pt had removed venti mask and was satting at65% and was not recuperating quickly and pt was staying in the 60's. Nonrebreather applied to pt and o2 sats went up to mid-90's in about five minutes. Pt then put back on venti mask. Abdomen remains large, round and non-tender. No other acute changes or complaints at this time.
[2020-07-24 07:12] LABS: Lymphocytes % 5 % (10-50); Monocytes % 7 % (2-9); Neutrophils % 88 % (42-76); Platelet Estimate Normal; RBC Morphology Normal; Total Cells Counted 100
--- NOTE | 2020-07-24 07:53 | XR_ITS ---
PROCEDURE: XR CHEST PORTABLE CLINICAL HISTORY: covid pneumonia, worsening hypoxia COMPARISON: CR XR CHEST PORTABLE from 07/11/2020 CR XR CHEST PORTABLE from 07/16/[address] ANGIO CHEST from 07/22/2020 CR XR CHEST PORTABLE from 07/22/2020 FINDINGS: Cardiomegaly. Prior CABG. Bilateral pneumonia once again noted right worse than left. The pneumonia may be slightly worse in the right upper lobe compared to the previous exam. There is sparing of the left upper lobe. No acute bony abnormalities. IMPRESSION: Bilateral pneumonia slightly worse on the right Dictated by: Brannon Mcdonald MD 07/24/2020 10:00 Brannon Mcdonald MD in [facility] 07/24/2020 10:00
--- NOTE | 2020-07-24 08:00 | HMH.ACPN2 ---
Internal Medicine - PN: Subj *Date: 07/24/20 *Time: 08:00 Interval history: Patient himself has no complaints this morning because he is confused. Nursing staff reports there seem to be more confusion overnight compared to the previous evening. He has refused insulin injections for the hyperglycemia caused by his steroids. Exam Vital signs and Labs for Last 24 Hours: Temp Pulse Resp BP Pulse Ox 97.6 F 89 24 134/62 84 L 07/24/20 07:42 07/24/20 07:42 07/24/20 07:42 07/24/20 07:42 07/24/20 07:42 Laboratory Results - last 24 hr 07/23/20 11:32: POC Glucose 162 H 07/23/20 21:36: POC Glucose 211 H 07/24/20 05:30: Sodium 143, Potassium 4.0, Chloride 113 H, Carbon Dioxide 23, Anion Gap 11.0, BUN 49 H D, Creatinine 1.60 H, Estimated Creat Clear 52, Estimated GFR 42 L, Est GFR ( Amer) 50 L, Glucose 166 H, Calcium 8.7, Total Bilirubin 0.5, AST 39, ALT 31, Alkaline Phosphatase 91, Total Protein 6.5, Albumin 3.0 L D, Globulin 3.5 H, Albumin/Globulin Ratio 0.9 L 07/24/20 05:30: WBC 20.3 H* D, RBC 3.76 L, Hgb 12.1 L, Hct 37.2 L, MCV 99.0 H, MCH 32.2 H, MCHC 32.5, RDW 15.3, Plt Count 332, MPV 8.6, Neut % (Auto) 89.3 H, Lymph % (Auto) 4.0 L, [place] % (Auto) 6.5, Eos % (Auto) 0.0 L, Baso % (Auto) 0.2, Neut # (Auto) 18.2 H, Lymph # (Auto) 0.8, [place] # (Auto) 1.3 H, Eos # (Auto) 0.0, Baso # (Auto) 0.0, Total Counted 100, Neutrophils % (Manual) 88 H, Lymphocytes % (Manual) 5 L, Monocytes % (Manual) 7, Platelet Estimate Normal, RBC Morphology Normal I & O for Last 24 hours: Intake & Output 07/21/20 07/22/20 07/23/20/09/21 11:59 11:59 11:59 11:59 Intake Total 2337 / 2337 1630 / 1630 Output Total 1351 / 1351 850 / 850 Balance 986 / 986 780 / 780 Weight 220 lb 222 lb 10.67 oz 225 lb 8.526 oz Narrative: Patient is awake and conversant even with the Ventimask on. O2 sats are in the mid 80s. Lungs are distant with basilar rales. Heart has a regular rate and rhythm. Abdomen is obese. Extremities have 1-2+ edema. Assessment and Plan (1) Pneumonia due to COVID-19 virus Status: Acute Category: Medical Code(s): U07.1 - COVID-19; J12.82 - Pneumonia due to coronavirus disease 2018 (2) Respiratory failure with hypoxia Status: Acute Qualifiers: Chronicity: acute Qualified Code(s): J96.01 - Acute respiratory failure with hypoxia Category: Medical Code(s): J96.91 - Respiratory failure, unspecified with hypoxia (3) Coronary artery disease Status: Chronic Qualifiers: Coronary Disease-Associated Artery/Lesion type: [place] artery [place] vs. transplanted heart: [place] heart Associated angina: without angina Qualified Code(s): I25.10 - Atherosclerotic heart disease of [place] coronary artery without angina pectoris Category: Medical Code(s): I25.10 - Atherosclerotic heart disease of [place] coronary artery without angina pectoris (4) 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 Category: Medical Code(s): N18.32 - Chronic kidney disease, stage 3b - Assessment and plan all Dx Assessment and Plan for all problems:: 1. Continue remdesivir and dexamethasone. 2. Repeat portable chest x-ray 3. Due to patient's level of confusion and inability to maintain O2 sats I am going to go and place the patient on Vapotherm 4. Discontinue azithromycin in favor of levofloxacin due to rising white count. Patient will also be given a dose of vancomycin 5. IV Bumex today
[2020-07-24 11:10] LABS: POC Glucose,Bedside 194 (70-110)
--- NOTE | 2020-07-24 13:33 | PC.NURSE ---
Addendum entered by Mag Rosas RN 07/24/20 18:23: PT HAS BEEN VERY CONFUSED T/O SHIFT. PT EDUCATED ON MEDICATION, NEED FOR HOSPITAL STAY, AND SAFETY. PT REMAINS ON NONREBREATHER WITH O2 SATS >90% PER MD UP. VSS. WILL CONT. TO MONITOR. Original Note: pt was seen by staff, Adriana CHAPMAN, taking seat in the floor. he stated he thought someone was sitting in his chair and he did not want to sit in the bed. made aware. no new orders.
[2020-07-24 15:53] LABS: POC Glucose,Bedside 146 (70-110)
[2020-07-24 20:32] LABS: POC Glucose,Bedside 160 (70-110)
[2020-07-25] VITALS (20 sets, daily range): BP systolic 90–158; BP diastolic 55–108; PULSE 78–121; RESP 20–35; TEMP 36.6–37.2; O2SAT 88–95; BMI 35.3
[2020-07-25 06:20] LABS: Basophils # 0.1 K/mm3 (0-0.2); Basophils % 0.2 % (0.1-2.0); Hematocrit 41.1 % (42.0-52.0); Hemoglobin 13.3 g/dL (14.1-18.0); Lymphocytes # 0.7 K/mm3 (0.7-4.5); Lymphocytes % 2.9 % (10-50); Mean Corpuscular HGB Conc 32.3 g/dL (31.8-35.4); Mean Corpuscular Volume 99.1 fl (80-94); Mean Platelet Volume 8.4 fl (7.4-10.4); Monocytes # 1.7 K/mm3 (0.1-1.0); Monocytes % 6.8 % (1.7-9.3); Neutrophils # 21.9 K/mm3 (1.8-7.8); Neutrophils % 90.1 % (37.0-80.0); Platelet Count 373 K/mm3 (142-424); Red Blood Count 4.15 M/mm3 (4.60-6.20); Red Cell Distribution Width 15.4 % (11.5-17.5)
--- NOTE | 2020-07-25 06:26 | PC.NURSE ---
Pt has rested intermittently this shift. Pt continues to be confused and has only been oriented to his name and birthday. Pt is very impulsive in his actions, such as removing NRB mask and trrying to ambulate w/o assistance. Pt will remove NRB and desat to 65-68% within seconds and will take approximately 10-12 minutes to recover to 88-90%. Pull alarm was placed on pt for safety. When pt gets up independently he ambulates w/ a very unsteady gait. Pt refused FSBS coverage again at 2100.
[2020-07-25 06:29] LABS: White Blood Count 24.3 K/mm3 (4.8-10.8)
[2020-07-25 06:30] LABS: MANUAL DIFFERENTIAL MANUAL DIFFERENTIAL (MANUAL DIFF)
[2020-07-25 06:36] LABS: Alanine Aminotransferase 41 U/L (12-78); Albumin Level 3.7 g/dl (3.5-5.0); Albumin/Globulin Ratio 0.9 (1.1-1.8); Alkaline Phosphatase 126 U/L (38-126); Anion Gap 15.4 mEq/L (5-15); Aspartate Amino Transferase 53 U/L (17-59); Bilirubin,Total 0.7 mg/dl (0.2-1.3); Blood Urea Nitrogen 57 mg/dl (9-20); Calcium 9.4 mg/dl (8.4-10.2); Carbon Dioxide 21 mmol/L (22.0-30.0); Chloride 114 mmol/L (98-107); Creatinine Clearance Estimated 45 mL/min (50-200); Estimated Glomerular Filt Rate 36 ml/min (>60); GFR (African American) 44 ML/MIN (>60); Globulin 3.9 g/dL (1.3-3.2); Glucose 141 mg/dl (74-100); Potassium 4.4 mmoL/L (3.5-5.1); Sodium 146 mmol/L (136-145); Total Protein,Serum 7.6 g/dl (6.3-8.2)
[2020-07-25 06:50] LABS: Procalcitonin 0.183 ng/mL (0.0-2.0)
[2020-07-25 07:01] LABS: Lymphocytes % 4 % (10-50); Macrocytosis 1+; Neutrophils % 92 % (42-76); Platelet Estimate Normal; Rouleaux 1+; Total Cells Counted 100
--- NOTE | 2020-07-25 07:40 | HMH.ACPN2 ---
Internal Medicine - PN: Subj *Date: 07/25/20 *Time: 07:40 Interval history: Nursing staff reports patient has been more confused over the last 24 hours which is impairing care. Patient has removed multiple IVs already this admission and frequently states he does not want an IV placed. He has been on a Ventimask or nonrebreather for all of the last 24 hours and will frequently remove facemask. This results in desaturations to the 60s. Patient will quickly return to the high 80s with reapplication of supplemental oxygen. Patient is still ambulating to urinate. This morning however he struggles answering questions about how he is feeling and his level of shortness of breath. Exam Vital signs and Labs for Last 24 Hours: Temp Pulse Resp BP Pulse Ox 97.9 F 92 H 24 135/78 88 L 07/25/20 04:00 07/25/20 04:00 07/25/20 04:00 07/25/20 04:00 07/25/20 04:00 Laboratory Results - last 24 hr 07/24/20 10:53: POC Glucose 194 H 07/24/20 15:46: POC Glucose 146 H 07/24/20 20:22: POC Glucose 160 H 07/25/20 05:25: Sodium 146 H, Potassium 4.4, Chloride 114 H, Carbon Dioxide 21 L, Anion Gap 15.4 H, BUN 57 H, Creatinine 1.80 H, Estimated Creat Clear 45, Estimated GFR 36 L, Est GFR ( Amer) 44 L, Glucose 141 H, Calcium 9.4, Total Bilirubin 0.7, AST 53 D, ALT 41 D, Alkaline Phosphatase 126, Total Protein 7.6, Albumin 3.7 D, Globulin 3.9 H, Albumin/Globulin Ratio 0.9 L, Procalcitonin 0.183 07/25/20 05:25: WBC 24.3 H*, RBC 4.15 L, Hgb 13.3 L, Hct 41.1 L, MCV 99.1 H, MCH 32.0 H, MCHC 32.3, RDW 15.4, Plt Count 373, MPV 8.4, Neut % (Auto) 90.1 H, Lymph % (Auto) 2.9 L, [place] % (Auto) 6.8, Eos % (Auto) 0.0 L, Baso % (Auto) 0.2, Neut # (Auto) 21.9 H, Lymph # (Auto) 0.7, [place] # (Auto) 1.7 H, Eos # (Auto) 0.0, Baso # (Auto) 0.1, Total Counted 100, Neutrophils % (Manual) 92 H, Band Neutrophils % 4.0, Lymphocytes % (Manual) 4 L, Platelet Estimate Normal, Macrocytosis 1+, Rouleaux 1+ I & O for Last 24 hours: Intake & Output 07/22/20 07/23/20 07/24/20 07/25/20 11:59 11:59 11:59 11:59 Intake Total 2337 / 2337 1630 / 1630 940 / 940 Output Total 1351 / 1351 850 / 850 1999 / 1999 Balance 986 / 986 780 / 780 -1060 / -1060 Weight 220 lb 222 lb 10.67 oz 225 lb 8.526 oz 220 lb - Constitutional no acute distress - *Routine HEENT Exam Head: Present: normocephalic Eye: Present: EOMI, PERRL ENT: Present: mucous membranes moist - *Routine Neck Exam Present: supple. Absent: lymphadenopathy - *Routine Respiratory Exam Present: rales (Bilaterally), distant breath sounds - *Routine Cardiovascular Exam Present: RRR - *Routine Abdominal Exam Present: soft, normoactive bowel sounds. Absent: tenderness - *Routine Extremities Exam Present: edema Assessment and Plan (1) Pneumonia due to COVID-19 virus Status: Acute Category: Medical Code(s): U07.1 - COVID-19; J12.82 - Pneumonia due to coronavirus disease 2019 (2) Respiratory failure with hypoxia Status: Acute Qualifiers: Chronicity: acute Qualified Code(s): J96.01 - Acute respiratory failure with hypoxia Category: Medical Code(s): J96.91 - Respiratory failure, unspecified with hypoxia (3) Coronary artery disease Status: Chronic Qualifiers: Coronary Disease-Associated Artery/Lesion type: [place] artery [place] vs. transplanted heart: [place] heart Associated angina: without angina Qualified Code(s): I25.10 - Atherosclerotic heart disease of [place] coronary artery without angina pectoris Category: Medical Code(s): I25.10 - Atherosclerotic heart disease of [place] coronary artery without angina pectoris (4) 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 Category: Medical Code(s): N18.32 - Chronic kidney disease, stage 3b (5) Encephalopathy due to 2019 novel coronavirus Status: Acute Category: Medical Code(s): U07.1 - COVID-19; G93.49 - Other encephalopathy (6) Encephalopathy Status: Acute Category: Medical Code(s): G93.40 - En
--- NOTE | 2020-07-25 07:56 | PC.NURSE ---
VAPOTHERM APPLIED PER MD BY RT. PT SWINGING AT STAFF AND PULLING VAPOTHERM OFF. MD AWARE NO NEW ORDERS. SOFT MITTS APPLIED TO PT FOR SAFETY.
--- NOTE | 2020-07-25 12:46 | HMH.PHACONS ---
- Pharmacy Consult Date: 07/24/20 Time: 10:30 Referring provider: DR. UP Reason for Consult:: VANCOMYCIN DOSING Allergies and ADEs:: Allergies Allergy/AdvReac Type Severity Reaction Status Date / Time No Known Allergies Allergy Verified 01/07/18 21:25 Home Medications:: Home Medications Medication Instructions Recorded Confirmed Type Cholecalciferol (Vitamin D3) 2,000 unit PO DAILY 01/07/18 07/22/20 History [Vitamin D3 1,000 Unit Cap] Labetalol HCl [Normodyne 100mg 200 mg PO BID 01/07/18 07/22/20 History tablet] Pravastatin Sodium [Pravachol] 40 mg PO DAILY 01/07/18 07/22/20 History allopurinoL [Allopurinol 300mg 300 mg PO DAILY 01/07/18 07/22/20 History tablet] Amlodipine Besylate [Norvasc 5mg 5 mg PO BID 07/16/20 07/22/20 History tablet] Bumetanide 1 mg PO BID 07/16/20 07/22/20 History Furosemide [Furosemide 20mg Tab*] 20 mg PO BID 07/16/20 07/23/20 History Valsartan [Valsartan 80mg 80 mg PO DAILY 07/16/20 07/22/20 History Tablets] Aspirin [Aspirin 81mg EC Tab] 81 mg PO DAILY 07/23/20 07/23/20 History Tramadol HCl [Tramadol 50mg 50 mg PO Q6HP PRN 07/23/20 07/23/20 History Tab] Height: 1.68 m Weight: 99.79 kg Laboratory Results:: Laboratory Results - last 24 hr 07/24/20 15:46: POC Glucose 146 H 07/24/20 20:22: POC Glucose 160 H 07/25/20 05:25: Sodium 146 H, Potassium 4.4, Chloride 114 H, Carbon Dioxide 21 L, Anion Gap 15.4 H, BUN 57 H, Creatinine 1.80 H, Estimated Creat Clear 45, Estimated GFR 36 L, Est GFR ( Amer) 44 L, Glucose 141 H, Calcium 9.4, Total Bilirubin 0.7, AST 53 D, ALT 41 D, Alkaline Phosphatase 126, Total Protein 7.6, Albumin 3.7 D, Globulin 3.9 H, Albumin/Globulin Ratio 0.9 L, Procalcitonin 0.183 07/25/20 05:25: WBC 24.3 H*, RBC 4.15 L, Hgb 13.3 L, Hct 41.1 L, MCV 99.1 H, MCH 32.0 H, MCHC 32.3, RDW 15.4, Plt Count 373, MPV 8.4, Neut % (Auto) 90.1 H, Lymph % (Auto) 2.9 L, [place] % (Auto) 6.8, Eos % (Auto) 0.0 L, Baso % (Auto) 0.2, Neut # (Auto) 21.9 H, Lymph # (Auto) 0.7, [place] # (Auto) 1.7 H, Eos # (Auto) 0.0, Baso # (Auto) 0.1, Total Counted 100, Neutrophils % (Manual) 92 H, Band Neutrophils % 4.0, Lymphocytes % (Manual) 4 L, Platelet Estimate Normal, Macrocytosis 1+, Rouleaux 1+ Medical History: Reports:: Arrhythmia, Atherosclerotic Heart Disease, Coronary Artery Disease, Heart Murmur, Hyperlipidemia, Hypertension, Myocardial Infarction Denies:: Cancer, Diabetes Mellitus Type 1, Diabetes Mellitus Type 2, MRSA Assessment and Plan (1) Pneumonia due to COVID-19 virus Status: Acute Category: Medical Code(s): U07.1 - COVID-19; J12.82 - Pneumonia due to coronavirus disease 2019 (2) Respiratory failure with hypoxia Status: Acute Qualifiers: Chronicity: acute Qualified Code(s): J96.01 - Acute respiratory failure with hypoxia Category: Medical Code(s): J96.91 - Respiratory failure, unspecified with hypoxia (3) Coronary artery disease Status: Chronic Qualifiers: Coronary Disease-Associated Artery/Lesion type: [place] artery [place] vs. transplanted heart: [place] heart Associated angina: without angina Qualified Code(s): I25.10 - Atherosclerotic heart disease of [place] coronary artery without angina pectoris Category: Medical Code(s): I25.10 - Atherosclerotic heart disease of [place] coronary artery without angina pectoris (4) 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 Category: Medical Code(s): N18.32 - Chronic kidney disease, stage 3b (5) Encephalopathy due to 2019 novel coronavirus Status: Acute Category: Medical Code(s): U07.1 - COVID-19; G93.49 - Other encephalopathy (6) Encephalopathy Status: Acute Category: Medical Code(s): G93.40 - Encephalopathy, unspecified - Assessment and plan all Dx Assessment and Plan for all problems:: BASED ON PATIENT'S FACTORS, RECOMMENDED PATIENT START WITH VANCOMYCIN 1500 MG Q24H AT THIS TIME. PHARMACY WILL FOLLOW DAILY AND ADJUST APPROPRIATE.
[2020-07-25 13:40] LABS: ABG Base Excess -11.1 mmol/L (-2.4-2.3); ABG HCO3 15.9 mmhg (22.0-26.0); ABG Oxygen Saturation 75 % (90-100); ABG PCO2 35.4 mmhg (35.0-45.0); ABG PH 7.27 mmol/L (7.35-7.45); ABG TCO2 16.9 mmhg (23-27)
[2020-07-25 13:43] LABS: Allen's Test Patient Unable; Oxygen 100 %; Source Right Radial
[2020-07-25 13:44] LABS: ABG PO2 44.8 mmhg (80-100)
--- NOTE | 2020-07-25 13:50 | PC.NURSE ---
SPOKE WITH MD UP REGARDING PT STATUS, VS, AND ACTIONS. PT ORDERED ONE TIME DOSE OF MORPHINE 1MG IV X1. SPOKE WITH PT AGAIN REGARDING PT STATUS. HR STILL 115-120 AND RR 47. MD ORDERED D/C IVF, 2MG MORPHINE X1, AN ABG, AND 40MG OF IV LASIX.
--- NOTE | 2020-07-25 14:59 | XR_ITS ---
PROCEDURE: XR CHEST PORTABLE CLINICAL HISTORY: confirm ET tube placement, OG tube placement COMPARISON: CR XR CHEST PORTABLE from 07/16/[address] ANGIO CHEST from 07/22/2020 CR XR CHEST PORTABLE from 07/22/2020 CR XR CHEST PORTABLE from 07/24/2020 FINDINGS: Tracheal tube is in good position approximately 3.2 cm above the bushra. The OG tube is seen with the tip just beyond the gastroesophageal junction in the upper portion of the stomach. Prominent diffuse patchy ill-defined pneumonic infiltrates are again seen in both lung read with most dense consolidations seen in the left infrahilar region and left lower lobe. There has been very little if any interval improvement in the bilateral pneumonic infiltrates when compared to the most recent study from yesterday. There monitor lines overlying the chest. IMPRESSION: Satisfactory placement of endotracheal tube, suggest advancing the OG tube 5-6 cm for better positioning within the stomach Dictated by: Dr. Florencio Hoyt MD 07/25/2020 15:23 Dr. Florencio Hoyt MD in [facility] 07/25/2020 15:23
--- NOTE | 2020-07-25 15:24 | PC.NURSE ---
PT INTUBATED @ 1458 WITH A 7.5 ET TUBE 22 @ LIP. PUT ON VENTILATOR AC WITH A VT 440, RR20, PEEP10, AND 100%. SATURATIONS STAYING HIGH 80'S AND LOW 90'S. SPUTUM SAMPLE OBTAINED. SECRETIONS VERY THICK AT THIS TIME WITH A CHIOMA RED BLOOD TINT.
--- NOTE | 2020-07-25 15:25 | P.PN_ITS ---
Critical Care Event Note Code activated: No Narrative: This case had a high probability of a clinically significant, sudden, or life threatening deterioration of this patient's condition which required my full and direct attention, intervention and personal management. Called to the ICU to intubate the patient. He is COVID-19 positive with COVID- 19 pneumonia and hypoxic respiratory failure. He is delirious, combative, agitated. Pulse ox is upper 80s to low 90s upon my arrival on 100% nonrebreather mask. Tachypneic with labored respirations. Endotracheal Intubation Performed by: IBRAHIMA GIBBS Patient identity confirmed: arm band Indications: airway protection respiratory failure Intubation method: rapid sequence intubation with sedation and NMB Pretreatment medications: None Sedatives: Ketamine 100 mg Paralytic: Rocuronium 100 mg Laryngoscope: Video laryngoscope Tube size: 7.5 mm Tube type: cuffed Number of attempts: 1 Cords visualized: yes Post-procedure assessment: chest rise and CO2 detector Breath sounds: equal and absent over the epigastrium Cuff inflated: yes ETT to teeth: 22 cm Tube secured with: ETT gay Chest x-ray interpreted by me. Chest x-ray findings: endotracheal tube in appropriate position Patient tolerance: Patient tolerated the procedure well with no immediate com plications. Critical care time: less than 30 mins [facility] Critical Care Exam Vital signs: Temp Pulse Resp BP Pulse Ox 98.8 F 121 H 20 158/108 H 95 07/25/20 12:00 07/25/20 12:00 07/25/20 15:20 07/25/20 12:00 07/25/20 15:20
--- NOTE | 2020-07-25 15:41 | XR_ITS ---
PROCEDURE: XR CHEST PORTABLE CLINICAL HISTORY: tube placement COMPARISON: CT CT ANGIO CHEST from 07/22/2020 CR XR CHEST PORTABLE from 07/22/2020 CR XR CHEST PORTABLE from 07/24/2020 CR XR CHEST PORTABLE from 07/25/2020 FINDINGS: The endotracheal tube is in good position above the bushra unchanged from the film earlier in the day. The OG tube has been advanced compared to the earlier film with the tip now projecting up against the greater curvature of the stomach. There is no pneumothorax. Diffuse ill-defined pneumonic infiltrates are again seen bilaterally with relative sparing of the left upper lobe. No acute bony abnormalities. IMPRESSION: Satisfactory position of endotracheal tube and OG tube no significant interval improvement in bilateral diffuse pneumonic infiltrates Dictated by: Dr. Florencio Hoyt MD 07/25/2020 19:02 Dr. Florencio Hoyt MD in [facility] 07/25/2020 19:02
--- NOTE | 2020-07-25 15:57 | HMH.CCN ---
Critical Care Event Note Code activated: No Narrative: This case had a high probability of a clinically significant, sudden, or life threatening deterioration of this patient's condition which required my full and direct attention, intervention and personal management. As the day progressed patient's condition worsened. He was not tolerating high flow nasal cannula and continued to be combative with staff and frequently making attempts to remove his oxygen despite use of protective mittens. Patient O2 sats declined, both respiratory and heart rate increased. Patient was given morphine to treat any pain and possibly relax the patient as well as IV Lasix. Patient had excellent response to IV Lasix with urine output of over 1200 mL since administration at 1:25 PM. Morphine did seem to relax the patient but despite use of high flow nasal cannula at 100% FiO2 patient was unable to maintain his O2 sats greater than 90. A repeat blood gas showed a PaO2 of 44.8 and decision was made to intubate the patient. Patient was intubated by ER physician. Patient had patient-red sputum that has been collected and sent for culture I have spoken with Dr. Bethea who has given ventilator recommendations and will follow up on both blood gas as well as adjustment of ventilator settings. Chest x-ray has showed worsening of his pneumonia, especially on the right. Findings consistent with ARDS. Patient will be continued on broad-spectrum antibiotics in addition to remdesivir and dexamethasone. I will order additional Lasix for this evening Critical care time: 30 - 74 mins [facility] Critical Care Exam Vital signs: Temp Pulse Resp BP Pulse Ox 98.8 F 95 H 20 158/108 H 95 07/25/20 12:00 07/25/20 15:30 07/25/20 15:20 07/25/20 12:00 07/25/20 15:20 - Constitutional Comments: Sedated and intubated. Patient is breathing with the ventilator - Routine HEENT Exam Head: Present: normocephalic Eye: Present: PERRL ENT: Present: mucous membranes moist - Routine Respiratory Exam Present: patient mechanically ventilated, decreased breath sounds, rales (Bilateral), rhonchi (Bilateral) - Routine Cardiovascular Exam Present: RRR, Normal S1, Normal S2 - Routine Abdominal Exam Present: soft
--- NOTE | 2020-07-25 16:10 | DIET.NUTRFU ---
Addendum entered by Whitney Melo 07/29/20 14:08: Tolerating tube feeds. Declining renal function at critical levels and with 10# weight gain past 24h. BG stable, improvement Na to wnl. Pt is within highly conservative fluid needs- 2142ml with formula and flushes. Further decreasing free water would fall under needs. Increase in fluids may be indicated if pt stabilizes weight/edema over next 24hr. No changes to regimen at this time, continuing to monitor. Addendum entered by Whitney Melo 07/28/20 16:47: Feedings were started 05/27, stopped for GRV of 180ml last night and restarted this am with good tolerance. Renal function continues to decline and is very poor. BG moderate-high- ~200. Weight has remained stable. IVF has been DC'd- water flushes of 200ml q 4hr added to diet order, this will meet additional fluid needs not provided by formula, within conservative needs. No other changes to nutritional care plan at this time. Addendum entered by Whitney Melo 07/26/20 17:34: Feedings on hold per MD. BG moderate-high- ~170. 4# weight loss past 24hrs. Continuing to monitor/will monitor tolerance TF initiation/advancement. No changes to regimen listed below. Recommend water flushes of 60-120ml for irrigation. Volume overload noted, will cautiously add additional fluids as indicated. Original Note: Pt has been intubated and nutrition consult to begin TF has been received. Pt has been started on Pulmocare at 25mL/hr continuous with instructions to increase as tolerated to a goal rate of 50mL/hr. Pulmocare at goal rate of 50mL/hr will provide pt 1,800kcal, 75g protein, 126 gram CHO, and 942mL free H2O per day. The goal rate will meet the pt's needs based on [facility]EN recommendation for COVID-19. Pt is diabetic with glucose running at 166, 141. Will monitor pt TF toleration and add additional fluids as needed.
[2020-07-25 16:43] LABS: ABG HCO3 19.2 mmhg (22.0-26.0); ABG Oxygen Saturation 95 % (90-100); ABG PCO2 45.2 mmhg (35.0-45.0); ABG PH 7.25 mmol/L (7.35-7.45); ABG PO2 86.4 mmhg (80-100); ABG TCO2 20.6 mmhg (23-27)
[2020-07-25 16:45] LABS: Allen's Test Patient Unable; Oxygen 100 %; PEEP 10; Source Right Radial; Tidal Volume 440; Vent Rate 20
[2020-07-25 17:06] LABS: POC Glucose,Bedside 183 (70-110)
--- NOTE | 2020-07-25 17:06 | PC.NURSE ---
Per Dr. Bethea rate on vent increased to 24 from 20. Will,RT at bedside making changes @ this time.
--- NOTE | 2020-07-25 17:54 | PC.NURSE ---
1600 - OGT advanced 5 cm per Rad report.
--- NOTE | 2020-07-25 18:37 | PC.NURSE ---
Dr. Smith @ bedside. Pt placed in supine position. Upper dentures removed and placed in cup at bedside. 1456 - 100 mg of Rocuronium and 100 mg of Ketamine pushed by Dr. Smith and flushed. 1458 - #7.5 ETT inserted w/ use of video laryngoscope, secured 22 @ lip. Noted color change on CO2 detector and auscultation of bilat breath sounds. Pt placed on vent AC 100%, 20, 10, 440. Tolerating well. Versed started @ 0.02 mcg/hr. 1505 - OGT inserted @ 65 cm. 1510 - Rad at bedside to confirm ETT placement. Rectal temp, 98.3. CRE screen obtained and sent to lab. (see one hour post intubation intervention) 1540 - Dr. Ludwig @ bedside. Dr. Ludwig spoke w/ Dr. Bethea and Fentanyl gtt started @ 1630, is currently at 50 mcg/hr. Pt currently resting w/ eyes closed. Lungs coarse throughout. +1 edema noted in BLE. Abdomen large, round, soft, non-tender w/ hypoactive BS. Dr. Ludwig states that tube feed may be started tomorrow. Rocha cath to drain at bedside w/ clear pale urine. No BM. Report given to Ngoc Serrato RN
[2020-07-25 21:18] LABS: POC Glucose,Bedside 182 (70-110)
[2020-07-26] VITALS (34 sets, daily range): BP systolic 92–127; BP diastolic 62–81; PULSE 70–113; RESP 20–31; TEMP 36.9–37.4; O2SAT 90–96; BMI 31.6
--- NOTE | 2020-07-26 06:00 | XR_ITS ---
PROCEDURE: XR CHEST PORTABLE CLINICAL HISTORY: intubated with pneumonia COMPARISON: CT CT ANGIO CHEST from 07/22/2020 CR XR CHEST PORTABLE from 07/24/2020 CR XR CHEST PORTABLE from 07/25/2020 CR XR CHEST PORTABLE from 07/25/2020 FINDINGS: 5:50 a.m. Endotracheal tube tip is 3.6 cm above the bushra in good position. The orogastric tube tip is in the region region of the body of the stomach. Diffuse pneumonia once again noted in the right lung and left lower lobe. Probably unchanged given difference in technique. IMPRESSION: Endotracheal tube and nasogastric tube are in good position. No change bilateral pneumonia Dictated by: Brannon Mcdonald MD 07/26/2020 06:23 Brannon Mcdonald MD in OV 07/26/2020 06:23
[2020-07-26 06:15] LABS: Alanine Aminotransferase 29 U/L (12-78); Albumin Level 2.8 g/dl (3.5-5.0); Albumin/Globulin Ratio 0.8 (1.1-1.8); Alkaline Phosphatase 98 U/L (38-126); Anion Gap 13.4 mEq/L (5-15); Aspartate Amino Transferase 46 U/L (17-59); Bilirubin,Total 0.4 mg/dl (0.2-1.3); Blood Urea Nitrogen 70 mg/dl (9-20); Carbon Dioxide 20 mmol/L (22.0-30.0); Creatinine Clearance Estimated 32 mL/min (50-200); Estimated Glomerular Filt Rate 29 ml/min (>60); GFR (African American) 35 ML/MIN (>60); Globulin 3.4 g/dL (1.3-3.2); Potassium 4.4 mmoL/L (3.5-5.1); Total Protein,Serum 6.2 g/dl (6.3-8.2)
[2020-07-26 06:16] LABS: Basophils % 0.1 % (0.1-2.0); Eosinophils % 0.1 % (0.1-12.0); Hematocrit 34.5 % (42.0-52.0); Lymphocytes # 0.7 K/mm3 (0.7-4.5); Lymphocytes % 3.8 % (10-50); Mean Corpuscular HGB Conc 32.3 g/dL (31.8-35.4); Mean Corpuscular Volume 102.4 fl (80-94); Mean Platelet Volume 8.6 fl (7.4-10.4); Monocytes # 1.4 K/mm3 (0.1-1.0); Monocytes % 7.6 % (1.7-9.3); Neutrophils # 16.3 K/mm3 (1.8-7.8); Neutrophils % 88.3 % (37.0-80.0); Platelet Count 288 K/mm3 (142-424); Red Blood Count 3.37 M/mm3 (4.60-6.20); Red Cell Distribution Width 15.7 % (11.5-17.5); White Blood Count 18.4 K/mm3 (4.8-10.8)
[2020-07-26 06:18] LABS: Chloride 121 mmol/L (98-107); Sodium 150 mmol/L (136-145)
[2020-07-26 06:19] LABS: Glucose 171 mg/dl (74-100)
[2020-07-26 06:20] LABS: Hemoglobin 11.1 g/dL (14.1-18.0)
[2020-07-26 06:21] LABS: MANUAL DIFFERENTIAL MANUAL DIFFERENTIAL (MANUAL DIFF)
[2020-07-26 06:23] LABS: Vancomycin,Trough 11.5 ug/mL (5.0-10.0)
--- NOTE | 2020-07-26 06:26 | HMH.ACPN2 ---
Internal Medicine - PN: Subj *Date: 07/26/20 *Time: 06:26 Interval history: Patient is remained stable on the ventilator overnight. Nursing staff reports patient did over breathe the vent early in the third shift lieutenant but a small adjustment in sedation led to relaxation and patient is now currently breathing with the vent. Patient has had approximately a liter of urine output on the third shift lieutenant after administration of Lasix at 10 PM. Exam Vital signs and Labs for Last 24 Hours: Temp Pulse Resp BP Pulse Ox 99.2 F 94 H 28 H 127/76 94 L 07/26/20 05:59 07/26/20 05:59 07/26/20 05:59 07/26/20 05:59 07/26/20 05:59 Laboratory Results - last 24 hr 07/25/20 05:25: Sodium 146 H, Potassium 4.4, Chloride 114 H, Carbon Dioxide 21 L, Anion Gap 15.4 H, BUN 57 H, Creatinine 1.80 H, Estimated Creat Clear 45, Estimated GFR 36 L, Est GFR ( Amer) 44 L, Glucose 141 H, Calcium 9.4, Total Bilirubin 0.7, AST 53 D, ALT 41 D, Alkaline Phosphatase 126, Total Protein 7.6, Albumin 3.7 D, Globulin 3.9 H, Albumin/Globulin Ratio 0.9 L, Procalcitonin 0.183 07/25/20 05:25: WBC 24.3 H*, RBC 4.15 L, Hgb 13.3 L, Hct 41.1 L, MCV 99.1 H, MCH 32.0 H, MCHC 32.3, RDW 15.4, Plt Count 373, MPV 8.4, Neut % (Auto) 90.1 H, Lymph % (Auto) 2.9 L, [place] % (Auto) 6.8, Eos % (Auto) 0.0 L, Baso % (Auto) 0.2, Neut # (Auto) 21.9 H, Lymph # (Auto) 0.7, [place] # (Auto) 1.7 H, Eos # (Auto) 0.0, Baso # (Auto) 0.1, Total Counted 100, Neutrophils % (Manual) 92 H, Band Neutrophils % 4.0, Lymphocytes % (Manual) 4 L, Platelet Estimate Normal, Macrocytosis 1+, Rouleaux 1+ 07/25/20 13:20: Specimen Source Right radial, O2 % 100, ABG pH 7.27 L, ABG pCO2 35.4, ABG pO2 44.8 L, ABG HCO3 15.9 L, ABG Total CO2 16.9 L, ABG O2 Saturation 75 L*, ABG Base Excess -11.1 L, Brannon Test Patient unable 07/25/20 16:38: Specimen Source Right radial, O2 % 100, ABG pH 7.25 L, ABG pCO2 45.2 H, ABG pO2 86.4, ABG HCO3 19.2 L, ABG Total CO2 20.6 L, ABG O2 Saturation 95, ABG Base Excess -8.0 L, Brannon Test Patient unable, Vent Rate 20, Tidal Volume 440, PEEP 10 07/25/20 16:51: POC Glucose 183 H 07/25/20 21:06: POC Glucose 182 H 07/26/20 05:20: Vancomycin Trough 11.5 H 07/26/20 05:20: Sodium 150 H, Potassium 4.4, Chloride 121 H, Carbon Dioxide 20 L, Anion Gap 13.4, BUN 70 H, Creatinine 2.20 H D, Estimated Creat Clear 32, Estimated GFR 29 L, Est GFR ( Amer) 35 L D, Glucose 171 H D, Total Bilirubin 0.4, AST 46, ALT 29 D, Alkaline Phosphatase 98, Total Protein 6.2 L, Albumin 2.8 L D, Globulin 3.4 H, Albumin/Globulin Ratio 0.8 L 07/26/20 05:20: WBC 18.4 H, RBC 3.37 L, Hgb 11.1 L D, Hct 34.5 L, MCV 102.4 H, MCH 33.0 H, MCHC 32.3, RDW 15.7, Plt Count 288, MPV 8.6, Neut % (Auto) 88.3 H, Lymph % (Auto) 3.8 L, [place] % (Auto) 7.6, Eos % (Auto) 0.1, Baso % (Auto) 0.1, Neut # (Auto) 16.3 H, Lymph # (Auto) 0.7, [place] # (Auto) 1.4 H, Eos # (Auto) 0.0, Baso # (Auto) 0.0 I & O for Last 24 hours: Intake & Output 0107/24/20 07/25/20 07/26/20 11:59 11:59 11:59 11:59 Intake Total 2337 / 2337 1630 / 1630 940 / 940 240 / 240 Output Total 1351 / 1351 850 / 850 2200 / 2200 2215 / 2215 Balance 986 / 986 780 / 780 -1260 / -1260 -1974 / -1974 Weight 222 lb 10.67 oz 225 lb 8.526 oz 220 lb 196 lb 10.437 oz Microbiology Reports for the Last 24 Hours: Microbiology 07/25/20 15:20 Sputum - Endotracheal Tube Aspirate Gram Stain - Final Narrative: Patient is sedated, intubated, and appears comfortable. Lung exam reveals rhonchi and rales on the right with additional rhonchi on the left. No wheezing is heard. Breath sounds are diminished at the bases. Heart has a regular rate and rhythm. Abdomen is soft and obese. Lower extremities have 1+ edema primarily posteriorly in the lower extremities. Skin is without rashes. Assessment and Plan (1) Pneumonia due to COVID-19 virus Status: Acute Category: Medical Code(s): U07.1 - COVID-19; J12.82 - Pneumonia due to coronavirus disease 2018 (2) Respiratory failure with h
[2020-07-26 06:29] LABS: Calcium 8.4 mg/dl (8.4-10.2)
[2020-07-26 07:06] LABS: ABG Base Excess -8.1 mmol/L (-2.4-2.3); ABG Oxygen Saturation 95 % (90-100); ABG PCO2 35.8 mmhg (35.0-45.0); ABG PH 7.32 mmol/L (7.35-7.45); ABG PO2 81.4 mmhg (80-100); ABG TCO2 19.1 mmhg (23-27)
[2020-07-26 07:10] LABS: Allen's Test Patient Unable; Oxygen 100 %; PEEP 10; Source Left Radial; Tidal Volume 440; Vent Rate 20
--- NOTE | 2020-07-26 09:18 | HMH.PHACONS ---
- Pharmacy Consult Date: 07/26/20 Time: 09:18 Referring provider: DR. UP Reason for Consult:: VANCOMYCIN TROUGH LEVEL Allergies and ADEs:: Allergies Allergy/AdvReac Type Severity Reaction Status Date / Time No Known Allergies Allergy Verified 01/07/18 21:25 Home Medications:: Home Medications Medication Instructions Recorded Confirmed Type Cholecalciferol (Vitamin D3) 2,000 unit PO DAILY 01/07/18 07/22/20 History [Vitamin D3 1,000 Unit Cap] Labetalol HCl [Normodyne 100mg 200 mg PO BID 01/07/18 07/22/20 History tablet] Pravastatin Sodium [Pravachol] 40 mg PO DAILY 01/07/18 07/22/20 History allopurinoL [Allopurinol 300mg 300 mg PO DAILY 01/07/18 07/22/20 History tablet] Amlodipine Besylate [Norvasc 5mg 5 mg PO BID 07/16/20 07/22/20 History tablet] Bumetanide 1 mg PO BID 07/16/20 07/22/20 History Furosemide [Furosemide 20mg Tab*] 20 mg PO BID 07/16/20 07/23/20 History Valsartan [Valsartan 80mg 80 mg PO DAILY 07/16/20 07/22/20 History Tablets] Aspirin [Aspirin 81mg EC Tab] 81 mg PO DAILY 07/23/20 07/23/20 History Tramadol HCl [Tramadol 50mg 50 mg PO Q6HP PRN 07/23/20 07/23/20 History Tab] Height: 1.68 m Weight: 89.2 kg Laboratory Results:: Laboratory Results - last 24 hr 07/25/20 13:20: Specimen Source Right radial, O2 % 100, ABG pH 7.27 L, ABG pCO2 35.4, ABG pO2 44.8 L, ABG HCO3 15.9 L, ABG Total CO2 16.9 L, ABG O2 Saturation 75 L*, ABG Base Excess -11.1 L, Brannon Test Patient unable 07/25/20 16:38: Specimen Source Right radial, O2 % 100, ABG pH 7.25 L, ABG pCO2 45.2 H, ABG pO2 86.4, ABG HCO3 19.2 L, ABG Total CO2 20.6 L, ABG O2 Saturation 95, ABG Base Excess -8.0 L, Brannon Test Patient unable, Vent Rate 20, Tidal Volume 440, PEEP 10 07/25/20 16:51: POC Glucose 183 H 07/25/20 21:06: POC Glucose 182 H 07/26/20 05:20: Vancomycin Trough 11.5 H 07/26/20 05:20: Sodium 150 H, Potassium 4.4, Chloride 121 H, Carbon Dioxide 20 L, Anion Gap 13.4, BUN 70 H, Creatinine 2.20 H D, Estimated Creat Clear 32, Estimated GFR 29 L, Est GFR ( Amer) 35 L D, Glucose 171 H D, Calcium 8.4 D, Total Bilirubin 0.4, AST 46, ALT 29 D, Alkaline Phosphatase 98, Total Protein 6.2 L, Albumin 2.8 L D, Globulin 3.4 H, Albumin/Globulin Ratio 0.8 L 07/26/20 05:20: WBC 18.4 H, RBC 3.37 L, Hgb 11.1 L D, Hct 34.5 L, MCV 102.4 H, MCH 33.0 H, MCHC 32.3, RDW 15.7, Plt Count 288, MPV 8.6, Neut % (Auto) 88.3 H, Lymph % (Auto) 3.8 L, [place] % (Auto) 7.6, Eos % (Auto) 0.1, Baso % (Auto) 0.1, Neut # (Auto) 16.3 H, Lymph # (Auto) 0.7, [place] # (Auto) 1.4 H, Eos # (Auto) 0.0, Baso # (Auto) 0.0 07/26/20 07:03: Specimen Source Left radial, O2 % 100, ABG pH 7.32 L, ABG pCO2 35.8, ABG pO2 81.4, ABG HCO3 18.0 L, ABG Total CO2 19.1 L, ABG O2 Saturation 95, ABG Base Excess -8.1 L, Brannon Test Patient unable, Vent Rate 20, Tidal Volume 440, PEEP 10 Medical History: Reports:: Arrhythmia, Atherosclerotic Heart Disease, Coronary Artery Disease, Heart Murmur, Hyperlipidemia, Hypertension, Myocardial Infarction Denies:: Cancer, Diabetes Mellitus Type 1, Diabetes Mellitus Type 2, MRSA Assessment and Plan (1) Pneumonia due to COVID-19 virus Status: Acute Category: Medical Code(s): U07.1 - COVID-19; J12.82 - Pneumonia due to coronavirus disease 2019 (2) Respiratory failure with hypoxia Status: Acute Qualifiers: Chronicity: acute Qualified Code(s): J96.01 - Acute respiratory failure with hypoxia Category: Medical Code(s): J96.91 - Respiratory failure, unspecified with hypoxia (3) Coronary artery disease Status: Chronic Qualifiers: Coronary Disease-Associated Artery/Lesion type: [place] artery [place] vs. transplanted heart: [place] heart Associated angina: without angina Qualified Code(s): I25.10 - Atherosclerotic heart disease of [place] coronary artery without angina pectoris Category: Medical Code(s): I25.10 - Atherosclerotic heart disease of [place] coronary artery without angina pectoris (4) Stage 3
[2020-07-26 09:37] LABS: Lymphocytes % 11 % (10-50); Monocytes % 5 % (2-9); Neutrophils % 84 % (42-76); Platelet Estimate Normal; RBC Morphology Normal; Total Cells Counted 100
--- NOTE | 2020-07-26 10:08 | HMH.PULMPN ---
Internal Medicine - PN: Subj *Date: 07/26/20 *Time: 10:08 Interval history: Patient respiratory status worsened the weekend needing mechanical ventilation Exam - Constitutional Constitutional:: comfortable - HENMT Exam HENMT: normocephalic, atraumatic - Eye Exam Eyes:: normal appearance both eyes and related structures, eyelids normal - Neck Exam Neck:: thyroid normal, no lymphadenopathy - Respiratory Exam Comments: Intubated and sedated. ET tube 22 cm at the lips. Bilateral coarse breath sounds. - Cardiovascular Exam Cardiac:: S1, S2 - GI Exam GI:: soft, no hepatosplenomegaly - Skin Exam Skin: warm, no rash, dry - Neurological Exam Intubated and sedated. Appears comfortable. - Extremities Exam Extremities: no cyanosis, no clubbing, edema Assessment and Plan (1) Pneumonia due to COVID-19 virus Status: Acute Category: Medical Code(s): U07.1 - COVID-19; J12.82 - Pneumonia due to coronavirus disease 2019 (2) Respiratory failure with hypoxia Status: Acute Qualifiers: Chronicity: acute Qualified Code(s): J96.01 - Acute respiratory failure with hypoxia Category: Medical Code(s): J96.91 - Respiratory failure, unspecified with hypoxia (3) Coronary artery disease Status: Chronic Qualifiers: Coronary Disease-Associated Artery/Lesion type: [place] artery [place] vs. transplanted heart: [place] heart Associated angina: without angina Qualified Code(s): I25.10 - Atherosclerotic heart disease of [place] coronary artery without angina pectoris Category: Medical Code(s): I25.10 - Atherosclerotic heart disease of 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 Category: Medical Code(s): N18.32 - Chronic kidney disease, stage 3b (5) Encephalopathy due to 2019 novel coronavirus Status: Acute Category: Medical Code(s): U07.1 - COVID-19; G93.49 - Other encephalopathy (6) Encephalopathy Status: Acute Category: Medical Code(s): G93.40 - Encephalopathy, unspecified (7) Acute kidney injury Status: Acute Category: Medical Code(s): N17.9 - Acute kidney failure, unspecified - Assessment and plan all Dx Assessment and Plan for all problems:: #Acute hypoxic respiratory failure: #COVID-19 pneumonia: Patient recent diagnosed COVID-19 in early July and stayed in hospital for more than 2 days presented with worsening respiratory failure and chest x-ray showed worsening pulmonary infiltrates significantly worse in the right lung with involvement of whole right lung along with left lower lobe pulmonary infiltrates. CTA on admission did not show evidence of pulmonary emboli however showed bilateral diffuse pulmonary infiltrates. Patient was initiated on azithromycin and cefepime for possible possible hospital-acquired pneumonia and patient was initiated on Ventimask on admission. However during hospital course patient respiratory status worsened along with febrile episodes and leukocytosis, antibiotics escalated to vancomycin cefepime and azithromycin, patient eventually needing mechanical ventilation for respiratory. Today auscultation revealed bilateral diffuse coarse breath sounds. ABG showed mild metabolic acidosis with a pH of 7.32 and PCO2 35.8. Volume status patient appears volume overloaded with bilateral worsening lower extremity edema. Renal function worsening with creatinine now increased to 2.20. We will closely monitor his volume status and determine the need for Lasix. Plan: -Continue mechanical ventilation with lung protective settings, patient currently at 100% FiO2, 10 of PEEP, for 40 of tidal volume and a rate of 24 -Continue vancomycin and cefepime along with azithromycin for possible hospital-acquired pneumonia along with atypical coverage - F/U Nasal MRSA PCR culture and PAL culture - Continue remdesivir and dexamethasone for COVID-19 pneumonia - DuoNebs every 6 hours Scheduled - Optimize
--- NOTE | 2020-07-26 10:18 | HMH.PULMPN ---
Internal Medicine - PN: Subj *Date: 07/26/20 *Time: 10:18 Interval history: Patient respiratory status remained stable over the weekend on high flow nasal cannula at 30 L 45% Exam - Constitutional Constitutional:: no acute distress, comfortable - HENMT Exam HENMT: normocephalic, atraumatic - Neck Exam Neck:: normal visual inspection - Respiratory Exam Respiratory:: no respiratory distress - Extremities Exam Extremities: no cyanosis, no clubbing, edema - Psychiatric Exam Psychiatric: normal affect, appearance grossly normal Assessment and Plan (1) Pneumonia due to COVID-19 virus Status: Acute Category: Medical Code(s): U07.1 - COVID-19; J12.82 - Pneumonia due to coronavirus disease 2019 (2) Respiratory failure with hypoxia Status: Acute Qualifiers: Chronicity: acute Qualified Code(s): J96.01 - Acute respiratory failure with hypoxia Category: Medical Code(s): J96.91 - Respiratory failure, unspecified with hypoxia (3) Coronary artery disease Status: Chronic Qualifiers: Coronary Disease-Associated Artery/Lesion type: [place] artery [place] vs. transplanted heart: [place] heart Associated angina: without angina Qualified Code(s): I25.10 - Atherosclerotic heart disease of [place] coronary artery without angina pectoris Category: Medical Code(s): I25.10 - Atherosclerotic heart disease of [place] coronary artery without angina pectoris (4) 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 Category: Medical Code(s): N18.32 - Chronic kidney disease, stage 3b (5) Encephalopathy due to 2019 novel coronavirus Status: Acute Category: Medical Code(s): U07.1 - COVID-19; G93.49 - Other encephalopathy (6) Encephalopathy Status: Acute Category: Medical Code(s): G93.40 - Encephalopathy, unspecified (7) Acute kidney injury Status: Acute Category: Medical Code(s): N17.9 - Acute kidney failure, unspecified - Assessment and plan all Dx Assessment and Plan for all problems:: #Acute hypoxic respiratory failure: #Community-acquired pneumonia: #Fungal pneumonia, likely PGP #COVID-19 pneumonia 58-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 CT PE did not show any evidence of pulmonary them but showed bilateral diffuse groundglass opacity along with trace pleural effusions patient during the hospital course on day 3 tested positive for COVID-19 after prior negative testing on admission. Patient along with continuation of antibiotics for possible community-acquired pneumonia, with Cefipime azithromycin patient was started on remdesivir dexamethasone for COVID-[address] also showed evidence of cirrhosis with portal hypertension. Sputum YOLANDA did not show any fungal elements. Serum LDH at 479, less concerned for PJP pneumonia at this point of time. We will continue current antibiotic course with cefepime and Bactrim for PJP pneumonia. Patient appears volume overloaded, will give her 40 of additional IV Lasix today and will change her from 20 to 40mg from tomorrow. Spironolactone was stopped given concern for interaction with Bactrim and possible hyperkalemia Plan: -Continue Bactrim DS once daily for PJP pneumonia x 21 days - Lasix 40 mg IV once today along with 40 mg IV daily from tomorrow - Sputum for PJP PCR / Silver staining -need to be collected - Continue remdesivir and dexamethasone for COVID-19 pneumonia - Continue cefepime x 7 days (completed 5-day course of azithromycin, discontinued) #Thank you for involving pulmonary in this patient care. We will continue to follow.
[2020-07-26 11:44] LABS: POC Glucose,Bedside 164 (70-110)
[2020-07-26 16:25] LABS: POC Glucose,Bedside 180 (70-110)
--- NOTE | 2020-07-26 19:25 | PC.NURSE ---
Patient remains intubated and sedated, perrla, pupils 2+, RASS -3, 7.5 ETT 22@lip, no changes to vent settings this shift, lung sounds reveal scattered rhonchi t/o, minimal secretions this shift, HR reg, abd soft with hypoactive bowel sounds in all quads, OG tube in place @70, tube feedings initiated this shift, FC patent and draining clear yellow urine, peripheral pulses 1+, 2+ edema noted peripherally, patient turned and provided oral care q2h, vss at this time, will continue to monitor.
[2020-07-26 21:03] LABS: POC Glucose,Bedside 208 (70-110)
[2020-07-27] VITALS (36 sets, daily range): BP systolic 93–121; BP diastolic 53–76; PULSE 76–102; RESP 24–26; TEMP 37.1–38; O2SAT 90–99; BMI 31.8
--- NOTE | 2020-07-27 00:13 | PC.NURSE ---
He is intubated and sedated and continues in contact and airborne precautions. Vent settings as follows: AC mode, TV 440, PEEP 10, Rate 24, FiO2 100%. He was overbreathing the vent at the beginning of the shift after increasing sedation/pain medication he has since breathed the same as the rate set on ventilator. Sedation and pain medication have both been weaned to amounts set at shift change and respirations are 24. Gag reflex is present. Tube feeding (pulmocare 1.5) has been increased from 25mL/hr to 35mL/hr at this time. Tube feeding residual was 5mL at both 2000 & 2400. Glucose 208 at 2100. F/c is patent with yellow, clear urine. HOB elevated 30 degrees. Heels elevated. Breakdown noted to bilateral groin. Coccyx is reddened but blanchable; barrier cream applied. Bruising noted to bilateral hands and abdomen. Dark purple bruise on left side of abdomen perimeters marked. Tachycardia noted until he received his labetolol. Pharmacy verified that it was ok to crush and give via OG. His watch, cell phone, wedding ring, and dentures are in the closet.
[2020-07-27 05:43] LABS: POC Glucose,Bedside 194 (70-110)
--- NOTE | 2020-07-27 06:00 | XR_ITS ---
PROCEDURE: XR CHEST PORTABLE CLINICAL HISTORY: intubated with pneumonia Evaluate tubes and lines COMPARISON: CT CT ANGIO CHEST from 07/22/2020 CR XR CHEST PORTABLE from 07/25/2020 CR XR CHEST PORTABLE from 07/25/2020 CR XR CHEST PORTABLE from 07/26/2020 FINDINGS: Endotracheal tube tip is in good position 4 cm above the bushra. Nasogastric tube tip is at least at the GE junction. Cardiomegaly. Prior median sternotomy. Right upper right lower and left lower lobe pneumonia unchanged. No acute bony abnormalities. IMPRESSION: Good position of endotracheal tube. NG tube tip is difficult to visualize but is at least at the GE junction. Upper abdomen exam may confirm NG position. No change bilateral pneumonia Dictated by: Brannon Mcdonald MD 07/27/2020 06:43 Brannon Mcdonald MD in [facility] 07/27/2020 06:43
[2020-07-27 06:17] LABS: Basophils # 0.1 K/mm3 (0-0.2); Basophils % 0.3 % (0.1-2.0); Hematocrit 36.4 % (42.0-52.0); Hemoglobin 11.1 g/dL (14.1-18.0); Lymphocytes # 0.6 K/mm3 (0.7-4.5); Lymphocytes % 2.8 % (10-50); Mean Corpuscular HGB Conc 30.5 g/dL (31.8-35.4); Mean Corpuscular Hemoglobin 31.5 pg (27.0-31.2); Mean Corpuscular Volume 103.4 fl (80-94); Mean Platelet Volume 8.6 fl (7.4-10.4); Monocytes # 1.4 K/mm3 (0.1-1.0); Monocytes % 6.1 % (1.7-9.3); Neutrophils % 90.9 % (37.0-80.0); Platelet Count 320 K/mm3 (142-424); Red Blood Count 3.52 M/mm3 (4.60-6.20); Red Cell Distribution Width 15.8 % (11.5-17.5); White Blood Count 23.2 K/mm3 (4.8-10.8)
--- NOTE | 2020-07-27 06:18 | HMH.ACPN2 ---
Internal Medicine - PN: Subj *Date: 07/27/20 *Time: 07:22 Interval history: Patient remains sedated on the ventilator. Tube feeds were initiated yesterday. Nursing reports no problems overnight. Patient did develop some tachycardia but had been without his labetalol for over 24 hours and this was administered. This helped patient's tachycardia. Patient overbreathing the vent periodically Exam Vital signs and Labs for Last 24 Hours: Temp Pulse Resp BP Pulse Ox 98.7 F 95 H 25 H 105/62 L 90 L 07/27/20 06:00 07/27/20 06:00 07/27/20 06:00 07/27/20 06:00 07/27/20 06:00 Laboratory Results - last 24 hr 07/26/20 05:20: Vancomycin Trough 11.5 H 07/26/20 05:20: Sodium 150 H, Potassium 4.4, Chloride 121 H, Carbon Dioxide 20 L, Anion Gap 13.4, BUN 70 H, Creatinine 2.20 H D, Estimated Creat Clear 32, Estimated GFR 29 L, Est GFR ( Amer) 35 L D, Glucose 171 H D, Calcium 8.4 D, Total Bilirubin 0.4, AST 46, ALT 29 D, Alkaline Phosphatase 98, Total Protein 6.2 L, Albumin 2.8 L D, Globulin 3.4 H, Albumin/Globulin Ratio 0.8 L 07/26/20 05:20: WBC 18.4 H, RBC 3.37 L, Hgb 11.1 L D, Hct 34.5 L, MCV 102.4 H, MCH 33.0 H, MCHC 32.3, RDW 15.7, Plt Count 288, MPV 8.6, Neut % (Auto) 88.3 H, Lymph % (Auto) 3.8 L, [place] % (Auto) 7.6, Eos % (Auto) 0.1, Baso % (Auto) 0.1, Neut # (Auto) 16.3 H, Lymph # (Auto) 0.7, [place] # (Auto) 1.4 H, Eos # (Auto) 0.0, Baso # (Auto) 0.0, Total Counted 100, Neutrophils % (Manual) 84 H, Lymphocytes % (Manual) 11, Monocytes % (Manual) 5, Platelet Estimate Normal, RBC Morphology Normal 07/26/20 07:03: Specimen Source Left radial, O2 % 100, ABG pH 7.32 L, ABG pCO2 35.8, ABG pO2 81.4, ABG HCO3 18.0 L, ABG Total CO2 19.1 L, ABG O2 Saturation 95, ABG Base Excess -8.1 L, Brannon Test Patient unable, Vent Rate 20, Tidal Volume 440, PEEP 10 07/26/20 11:18: POC Glucose 164 H 07/26/20 16:18: POC Glucose 180 H 07/26/20 20:37: POC Glucose 208 H 07/27/20 05:36: POC Glucose 194 H Abnormal lab results 07/26/20 07/26/20 07/26/20 Range/Units 05:20 11:18 16:18 WBC (4.8-10.8) K/mm3 RBC (4.60-6.20) M/mm3 Hgb (14.1-18.0) g/dL Hct (42.0-52.0) % MCV (80-94) fl MCH (27.0-31.2) pg MCHC (31.8-35.4) g/dL Neut % (Auto) (37.0-80.0) % Lymph % (Auto) (10-50) % Eos % (Auto) (0.1-12.0) % Neut # (Auto) (1.8-7.8) K/mm3 Lymph # (Auto) (0.7-4.5) K/mm3 [place] # (Auto) (0.1-1.0) K/mm3 Neutrophils % (Manual) 84 H (42-76) % ABG pH (7.35-7.45) mmol/L ABG pO2 (80-100) mmhg ABG HCO3 (22.0-26.0) mmhg ABG Total CO2 (23-27) mmhg ABG Base Excess (-2.4-2.3) mmol/L Sodium (136-145) mmol/L Chloride (98-107) mmol/L Carbon Dioxide (22.0-30.0) mmol/L BUN (9-20) mg/dl Creatinine (0.66-1.25) mg/dl Estimated GFR (>60) ml/min Est GFR ( Amer) (>60) ML/MIN Glucose (74-100) mg/dl POC Glucose 164 H 180 H (70-110) Total Protein (6.3-8.2) g/dl Albumin (3.5-5.0) g/dl Globulin (1.3-3.2) g/dL Albumin/Globulin Ratio (1.1-1.8) 07/26/20 07/27/20 07/27/20 Range/Units 20:37 05:30 05:30 WBC 23.2 H* D (4.8-10.8) K/mm3 RBC 3.52 L (4.60-6.20) M/mm3 Hgb 11.1 L (14.1-18.0) g/dL Hct 36.4 L (42.0-52.0) % MCV 103.4 H (80-94) fl MCH 31.5 H (27.0-31.2) pg MCHC 30.5 L (31.8-35.4) g/dL Neut % (Auto) 90.9 H (37.0-80.0) % Lymph % (Auto) 2.8 L (10-50) % Eos % (Auto) 0.0 L (0.1-12.0) % Neut # (Auto) 21.0 H (1.8-7.8) K/mm3 Lymph # (Auto) 0.6 L (0.7-4.5) K/mm3 [place] # (Auto) 1.4 H (0.1-1.0) K/mm3 Neutrophils % (Manual) (42-76) % ABG pH (7.35-7.45) mmol/L ABG pO2 (80-100) mmhg ABG HCO3 (22.0-26.0) mmhg ABG Total CO2 (23-27) mmhg ABG Base Excess (-2.4-2.3) mmol/L Sodium 153 H* (136-145) mmol/L Chloride 123 H (98-107) mmol/L Carbon Dioxide 20 L (22.0-30.0) mmol/L BUN 97 H D (9-20) mg/dl Creatinine 3.20
[2020-07-27 06:22] LABS: Alanine Aminotransferase 30 U/L (12-78); Albumin Level 2.7 g/dl (3.5-5.0); Albumin/Globulin Ratio 0.8 (1.1-1.8); Alkaline Phosphatase 96 U/L (38-126); Anion Gap 14.8 mEq/L (5-15); Aspartate Amino Transferase 57 U/L (17-59); Bilirubin,Total 0.4 mg/dl (0.2-1.3); Calcium 8.5 mg/dl (8.4-10.2); Carbon Dioxide 20 mmol/L (22.0-30.0); Chloride 123 mmol/L (98-107); Creatinine Clearance Estimated 22 mL/min (50-200); Estimated Glomerular Filt Rate 19 ml/min (>60); GFR (African American) 23 ML/MIN (>60); Globulin 3.4 g/dL (1.3-3.2); Glucose 202 mg/dl (74-100); Potassium 4.8 mmoL/L (3.5-5.1); Total Protein,Serum 6.1 g/dl (6.3-8.2)
[2020-07-27 06:31] LABS: Blood Urea Nitrogen 97 mg/dl (9-20); Sodium 153 mmol/L (136-145)
[2020-07-27 07:01] LABS: ABG Base Excess -9.5 mmol/L (-2.4-2.3); ABG HCO3 17.4 mmhg (22.0-26.0); ABG Oxygen Saturation 91 % (90-100); ABG PCO2 38.7 mmhg (35.0-45.0); ABG PH 7.27 mmol/L (7.35-7.45); ABG PO2 65.3 mmhg (80-100); ABG TCO2 18.6 mmhg (23-27)
[2020-07-27 07:04] LABS: Allen's Test Patient Unable; Oxygen 100 %; PEEP 10; Source Right Radial; Tidal Volume 440; Vent Rate 24
[2020-07-27 07:12] LABS: MANUAL DIFFERENTIAL MANUAL DIFFERENTIAL (MANUAL DIFF)
--- NOTE | 2020-07-27 08:00 | PC.NURSE ---
gastric residual 0mL. Tubefeed rate increased to 50mL/hr. Goal rate is 50mL/hr.
[2020-07-27 08:43] LABS: Lymphocytes % 14 % (10-50); Monocytes % 2 % (2-9); Neutrophils % 84 % (42-76); Platelet Estimate Normal; RBC Morphology Normal; Total Cells Counted 100
--- NOTE | 2020-07-27 09:40 | HMH.PULMPN ---
Internal Medicine - PN: Subj *Date: 07/27/20 *Time: 13:30 Interval history: No acute respiratory pains overnight. Patient respiratory status remained critical and stable. Exam - Constitutional Constitutional:: no acute distress, comfortable - HENMT Exam HENMT: normocephalic, atraumatic - Eye Exam Eyes:: normal conjunctiva - Neck Exam Neck:: thyroid normal, no lymphadenopathy - Respiratory Exam Comments: Intubated sedated. Bilateral decreased and coarse breath sounds - Cardiovascular Exam Cardiac:: S1, S2 - GI Exam GI:: soft, no hepatosplenomegaly, obese - Skin Exam Skin: warm, no rash - Neurological Exam Patient appears comfortable. Intubated and sedated. - Extremities Exam Extremities: no cyanosis, no clubbing, edema Assessment and Plan (1) Pneumonia due to COVID-19 virus Status: Acute Category: Medical Code(s): U07.1 - COVID-19; J12.82 - Pneumonia due to coronavirus disease 2019 (2) Respiratory failure with hypoxia Status: Acute Qualifiers: Chronicity: acute Qualified Code(s): J96.01 - Acute respiratory failure with hypoxia Category: Medical Code(s): J96.91 - Respiratory failure, unspecified with hypoxia (3) Coronary artery disease Status: Chronic Qualifiers: Coronary Disease-Associated Artery/Lesion type: [place] artery [place] vs. 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 Category: Medical Code(s): N18.32 - Chronic kidney disease, stage 3b (5) Encephalopathy due to 2019 novel coronavirus Status: Acute Category: Medical Code(s): U07.1 - COVID-19; G93.49 - Other encephalopathy (6) Encephalopathy Status: Acute Category: Medical Code(s): G93.40 - Encephalopathy, unspecified (7) Acute kidney injury Status: Acute Category: Medical Code(s): N17.9 - Acute kidney failure, unspecified - Assessment and plan all Dx Assessment and Plan for all problems:: #Acute hypoxic respiratory failure: #COVID-19 pneumonia: Patient recent diagnosed COVID-19 in early July and stayed in hospital for more than 2 days presented with worsening respiratory failure and chest x-ray showed worsening pulmonary infiltrates significantly worse in the right lung with involvement of whole right lung along with left lower lobe pulmonary infiltrates. CTA on admission did not show evidence of pulmonary emboli however showed bilateral diffuse pulmonary infiltrates. Patient on admission was initiated on cefepime and azithromycin were escalated to vancomycin given worsening leukocytosis. Patient respiratory status gradually worsened from patient being on Ventimask to high flow to eventually needing intubation and mechanical ventilation to maintain adequate oxygenation levels. Interval update: Patient respiratory status remained critical, on high vent settings needing 100% FiO2 with 10 of PEEP. ABG this morning showed metabolic acidosis with a pH of 7.27 and PCO2 38.7. PO2 65.3. PO2 worsen from yesterday. Renal functioning worsening, creatinine now increased from 2.2-3.2 this morning. However patient maintaining urine output elect 30 cc/h yesterday, declining from prior. We will closely monitor renal function we will hold off on initiating any Lasix at this point of time. Patient net negative volume status yesterday. D5 water for hypernatremia Increase PEEP to 12 given worsening oxygenation We will closely monitor his renal function Plan: - Continue mechanical ventilation with lung protective settings, patient currently at 100% FiO2, 440 of tidal volume and a rate of 24. We will increase the PEEP to 12 - Continue vancomycin and cefepime along with azithromycin for p
--- NOTE | 2020-07-27 10:45 | XR_ITS ---
PROCEDURE: XR CHEST PORTABLE CLINICAL HISTORY: verify placement of ET tube per Dr. Bethea COMPARISON: CT CT ANGIO CHEST from 07/22/2020 CR XR CHEST PORTABLE from 07/25/2020 CR XR CHEST PORTABLE from 07/26/2020 CR XR CHEST PORTABLE from 07/27/2020 FINDINGS: 11:03 a.m. The endotracheal tube is in good position at the T5 level approximately 3.5 cm above the bushra. The nasogastric tube tip is in the region the antrum/pylorus of the stomach. There remains diffuse bilateral alveolar disease consistent pneumonia unchanged. No acute bony abnormalities. IMPRESSION: Good position of endotracheal tube and nasogastric tube with no change in the diffuse bilateral pneumonia Dictated by: Brannon Mcdonald MD 07/27/2020 12:33 Brannon Mcdonald MD in [place] 07/27/2020 12:33
[2020-07-27 10:59] LABS: POC Glucose,Bedside 206 (70-110)
--- NOTE | 2020-07-27 11:34 | PC.NURSE ---
Dr. Bethea @ [facility]. He increased PEEP to 12.
--- NOTE | 2020-07-27 12:00 | PC.NURSE ---
gastric residual 0mL. Tubefeed rate continues @ 50mL/hr, which is the goal rate.
--- NOTE | 2020-07-27 14:11 | PC.NURSE ---
notified Dr. Ludwig of positive CRE rectal swab.
--- NOTE | 2020-07-27 15:46 | HMH.ACPN ---
Internal Medicine - PN: Subj *Date: 07/27/20 *Time: 15:46 Exam Vital signs and Labs for Last 24 Hours: Temp Pulse Resp BP Pulse Ox 99.9 F H 84 24 93/53 L 95 07/27/20 12:00 07/27/20 15:00 07/27/20 15:00 07/27/20 15:00 07/27/20 15:00 Laboratory Results - last 24 hr 07/26/20 16:18: POC Glucose 180 H 07/26/20 20:37: POC Glucose 208 H 07/27/20 05:30: WBC 23.2 H* D, RBC 3.52 L, Hgb 11.1 L, Hct 36.4 L, MCV 103.4 H, MCH 31.5 H, MCHC 30.5 L, RDW 15.8, Plt Count 320, MPV 8.6, Neut % (Auto) 90.9 H, Lymph % (Auto) 2.8 L, [place] % (Auto) 6.1, Eos % (Auto) 0.0 L, Baso % (Auto) 0.3, Neut # (Auto) 21.0 H, Lymph # (Auto) 0.6 L, [place] # (Auto) 1.4 H, Eos # (Auto) 0.0, Baso # (Auto) 0.1, Total Counted 100, Neutrophils % (Manual) 84 H, Lymphocytes % (Manual) 14, Monocytes % (Manual) 2, Platelet Estimate Normal, RBC Morphology Normal 07/27/20 05:30: Sodium 153 H*, Potassium 4.8, Chloride 123 H, Carbon Dioxide 20 L, Anion Gap 14.8, BUN 97 H D, Creatinine 3.20 H D, Estimated Creat Clear 22, Estimated GFR 19 L*, Est GFR ( Amer) 23 L D, Glucose 202 H, Calcium 8.5, Total Bilirubin 0.4, AST 57, ALT 30, Alkaline Phosphatase 96, Total Protein 6.1 L, Albumin 2.7 L, Globulin 3.4 H, Albumin/Globulin Ratio 0.8 L 07/27/20 05:36: POC Glucose 194 H 07/27/20 06:00: Specimen Source Right radial, O2 % 100, ABG pH 7.27 L, ABG pCO2 38.7, ABG pO2 65.3 L, ABG HCO3 17.4 L, ABG Total CO2 18.6 L, ABG O2 Saturation 91, ABG Base Excess -9.5 L, Brannon Test Patient unable, Vent Rate 24, Tidal Volume 440, PEEP 10 07/27/20 10:50: POC Glucose 206 H I & O for Last 24 hours: Intake & Output 07/24/20 07/25/20 07/26/20 07/27/20 23:59 23:59 23:59 23:59 Intake Total 1550 / 1550 510 / 520 750.5 / 760.5 430.625 / 430.625 Output Total 1300 / 2050 3085 / 3210 1510 / 1540 477 / 477 Balance 250 / -500 -2575 / -2690 -759.5 / -779.5 -46.375 / -46.375 Weight 102.3 kg 89 kg 89.2 kg Microbiology Reports for the Last 24 Hours: Microbiology 07/25/20 15:20 Anus CRE Surveillance Culture - Final 07/23/20 08:00 Nose - Nasal MRSA Culture - Final Negative Assessment and Plan (1) Pneumonia due to COVID-19 virus Status: Acute Category: Medical Code(s): U07.1 - COVID-19; J12.82 - Pneumonia due to coronavirus disease 2019 (2) Respiratory failure with hypoxia Status: Acute Qualifiers: Chronicity: acute Qualified Code(s): J96.01 - Acute respiratory failure with hypoxia Category: Medical Code(s): J96.91 - Respiratory failure, unspecified with hypoxia (3) Coronary artery disease Status: Chronic Qualifiers: Coronary Disease-Associated Artery/Lesion type: [place] artery [place] vs. 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
--- NOTE | 2020-07-27 16:00 | PC.NURSE ---
gastric residual 0mL. Tubefeed continues @ 50mL/hr, which is the goal rate.
[2020-07-27 16:22] LABS: POC Glucose,Bedside 197 (70-110)
[2020-07-27 20:26] LABS: POC Glucose,Bedside 194 (70-110)
[2020-07-28] VITALS (30 sets, daily range): BP systolic 90–103; BP diastolic 54–63; PULSE 70–800; RESP 24–27; TEMP 36.7–37.8; O2SAT 89–97; BMI 31.6
--- NOTE | 2020-07-28 02:19 | PC.NURSE ---
Residual on tube feeding was 180mL at 1999. Tube feeding was rechecked hourly and restarted after the third hour back at the goal rate. NSR with BBB on telemetry. Fentanyl weaned from 50mcg/hr to 12.5mcg/hr. CPOT <3 t/o shift. Vent settings are unchanged. Urine continues to be yellow, clear but amount is decreased from last night.
[2020-07-28 04:53] LABS: Basophils % 0.2 % (0.1-2.0); Chloride 123 mmol/L (98-107); Hematocrit 35.4 % (42.0-52.0); Hemoglobin 10.6 g/dL (14.1-18.0); Lymphocytes # 0.6 K/mm3 (0.7-4.5); Lymphocytes % 2.9 % (10-50); Mean Corpuscular HGB Conc 30.1 g/dL (31.8-35.4); Mean Corpuscular Hemoglobin 32.5 pg (27.0-31.2); Mean Corpuscular Volume 107.9 fl (80-94); Mean Platelet Volume 9.1 fl (7.4-10.4); Monocytes # 1.4 K/mm3 (0.1-1.0); Monocytes % 6.3 % (1.7-9.3); Neutrophils # 19.6 K/mm3 (1.8-7.8); Neutrophils % 90.7 % (37.0-80.0); Platelet Count 279 K/mm3 (142-424); Potassium 5.6 mmoL/L (3.5-5.1); Red Blood Count 3.28 M/mm3 (4.60-6.20); Red Cell Distribution Width 15.7 % (11.5-17.5); White Blood Count 21.6 K/mm3 (4.8-10.8)
[2020-07-28 04:55] LABS: Alanine Aminotransferase 29 U/L (12-78); Aspartate Amino Transferase 53 U/L (17-59); Creatinine Clearance Estimated 15 mL/min (50-200); Estimated Glomerular Filt Rate 12 ml/min (>60); GFR (African American) 15 ML/MIN (>60)
[2020-07-28 04:56] LABS: Albumin Level 2.6 g/dl (3.5-5.0); Albumin/Globulin Ratio 0.8 (1.1-1.8); Alkaline Phosphatase 83 U/L (38-126); Anion Gap 16.6 mEq/L (5-15); Bilirubin,Total 0.3 mg/dl (0.2-1.3); Calcium 8.1 mg/dl (8.4-10.2); Carbon Dioxide 18 mmol/L (22.0-30.0); Globulin 3.3 g/dL (1.3-3.2); Glucose 202 mg/dl (74-100); Total Protein,Serum 5.9 g/dl (6.3-8.2)
[2020-07-28 05:00] LABS: MANUAL DIFFERENTIAL MANUAL DIFFERENTIAL (MANUAL DIFF)
[2020-07-28 05:09] LABS: Blood Urea Nitrogen 132 mg/dl (9-20); Sodium 152 mmol/L (136-145)
[2020-07-28 05:52] LABS: POC Glucose,Bedside 202 (70-110)
--- NOTE | 2020-07-28 05:57 | PC.NURSE ---
ETT moved to the left side.
--- NOTE | 2020-07-28 06:00 | XR_ITS ---
PROCEDURE: XR CHEST PORTABLE CLINICAL HISTORY: intubated with pneumonia COMPARISON: CT CT ANGIO CHEST from 07/22/2020 CR XR CHEST PORTABLE from 07/26/2020 CR XR CHEST PORTABLE from 07/27/2020 CR XR CHEST PORTABLE from 07/27/2020 FINDINGS: 5:23 a.m.. Endotracheal tube tip is in good position 5 cm above the bushra. Nasogastric tube tip not readily identified but is below the GE junction. Prior CABG with cardiomegaly. Diffuse bilateral pneumonia with some sparing of the left upper lobe not significantly changed. No acute bony abnormalities. IMPRESSION: No change tubes and lines with diffuse bilateral pneumonia Dictated by: Brannon Mcdonald MD 07/28/2020 05:44 Brannon Mcdonald MD in [facility] 07/28/2020 05:44
--- NOTE | 2020-07-28 06:25 | CA_ITS ---
APPROVED REPORT EXAM: Limited 2D Echocardiogram Blind Lacer: Sara Chu RVT Ht: 5 ft 6 in Wt: 197lbs BSA: 1.99 BP: 153/92 mmHg Indications: RESP. FAILURE,COVID + PNEUMONIA,EF CHECK,CAD,CKD,CABG,PT INTUBATED TDS-PT FLAT ON BACK 2D Dimensions LVOT 1.66 cm (M/F) 1.5-2.5 M-Mode Dimensions RVDd 1.97 cm (0.9-2.6) LA Diam 3.27 cm (1.9-4.0) LVDd 4.31 cm (3.5-5.7) Ao Diam 3.27 cm (2.0-3.7) LVDs 2.90 cm (3.5-5.7) IVSd 0.94 cm (0.6-1.1) PWd 1.17 cm (0.6-1.1) EF (Teich) 78.20% FS 47.30% EDV (Teich) 147.40 mL ESV (Teich) 32.20 mL Tricuspid Valve TR P. Velocity 381.00 cm/s RAP Estimate 10.00 mmHg RVSP 68.10 mmHg Left Ventricle Left atrium is mildly enlarged, left ventricle is normal size, mild concentric left ventricular hypertrophy, visually estimated ejection fraction 55% with no obvious regional wall motion abnormality, technically difficult study, limited views were obtained. Diastolic parameters are inconclusive. Right Ventricle Right atrium and right ventricle are mildly enlarged with normal contractility. Aortic Valve Aortic valve is minimally thickened and calcified, morphologically there is no aortic stenosis, aortic outflow velocities not obtained in the study. There is no aortic insufficiency. Mitral Valve Mitral valve leaflets are minimally thickened, there is mild mitral regurgitation. Tricuspid Valve Tricuspid valve is minimally thickened, there is mild tricuspid regurgitation, calculated right ventricular systolic pressure 68 mmHg. Pulmonic Valve Pulmonic valve is poorly visualized. Great Vessels Aortic root is normal size. Pericardium No significant pericardial effusion noted. Conclusion 1. Biatrial enlargement, normal left ventricular size, mild concentric left ventricular hypertrophy, visually estimated ejection fraction 55% with no regional wall motion abnormality, diastolic parameters are inconclusive. 2. Mildly enlarged right ventricle with normal contractility. 3. Mild mitral and tricuspid regurgitation, calculated right ventricular systolic pressure is 68 mmHg. 4. No significant pericardial effusion noted. Electronically signed by : Oliver Marquis, 07/29/2020 13:39:02
--- NOTE | 2020-07-28 06:25 | HMH.ACPN2 ---
Internal Medicine - PN: Subj *Date: 07/28/20 *Time: 06:25 Interval history: Patient remains sedated and intubated. No issues overnight. Nursing staff reports urine output is decreased to 10 to 15 mL/h. Tube feeds were discontinued temporarily overnight due to high residual but has since been restarted. Exam Vital signs and Labs for Last 24 Hours: Temp Pulse Resp BP Pulse Ox 99.2 F 84 27 H 93/56 L 95 07/28/20 06:00 07/28/20 06:00 07/28/20 06:00 07/28/20 06:00 07/28/20 02:42 Laboratory Results - last 24 hr 07/27/20 05:30: WBC 23.2 H* D, RBC 3.52 L, Hgb 11.1 L, Hct 36.4 L, MCV 103.4 H, MCH 31.5 H, MCHC 30.5 L, RDW 15.8, Plt Count 320, MPV 8.6, Neut % (Auto) 90.9 H, Lymph % (Auto) 2.8 L, [place] % (Auto) 6.1, Eos % (Auto) 0.0 L, Baso % (Auto) 0.3, Neut # (Auto) 21.0 H, Lymph # (Auto) 0.6 L, [place] # (Auto) 1.4 H, Eos # (Auto) 0.0, Baso # (Auto) 0.1, Total Counted 100, Neutrophils % (Manual) 84 H, Lymphocytes % (Manual) 14, Monocytes % (Manual) 2, Platelet Estimate Normal, RBC Morphology Normal 07/27/20 05:30: Sodium 153 H*, Potassium 4.8, Chloride 123 H, Carbon Dioxide 20 L, Anion Gap 14.8, BUN 97 H D, Creatinine 3.20 H D, Estimated Creat Clear 22, Estimated GFR 19 L*, Est GFR ( Amer) 23 L D, Glucose 202 H, Calcium 8.5, Total Bilirubin 0.4, AST 57, ALT 30, Alkaline Phosphatase 96, Total Protein 6.1 L, Albumin 2.7 L, Globulin 3.4 H, Albumin/Globulin Ratio 0.8 L 07/27/20 06:00: Specimen Source Right radial, O2 % 100, ABG pH 7.27 L, ABG pCO2 38.7, ABG pO2 65.3 L, ABG HCO3 17.4 L, ABG Total CO2 18.6 L, ABG O2 Saturation 91, ABG Base Excess -9.5 L, Brannon Test Patient unable, Vent Rate 24, Tidal Volume 440, PEEP 10 07/27/20 10:50: POC Glucose 206 H 07/27/20 16:15: POC Glucose 197 H 07/27/20 19:38: POC Glucose 194 H 07/28/20 04:20: WBC 21.6 H*, RBC 3.28 L, Hgb 10.6 L, Hct 35.4 L, MCV 107.9 H, MCH 32.5 H, MCHC 30.1 L, RDW 15.7, Plt Count 279, MPV 9.1, Neut % (Auto) 90.7 H, Lymph % (Auto) 2.9 L, [place] % (Auto) 6.3, Eos % (Auto) 0.0 L, Baso % (Auto) 0.2, Neut # (Auto) 19.6 H, Lymph # (Auto) 0.6 L, [place] # (Auto) 1.4 H, Eos # (Auto) 0.0, Baso # (Auto) 0.0 07/28/20 04:20: Sodium 152 H*, Potassium 5.6 H, Chloride 123 H, Carbon Dioxide 18 L, Anion Gap 16.6 H, BUN 132 H* D, Creatinine 4.60 H D, Estimated Creat Clear 15, Estimated GFR 12 L*, Est GFR ( Amer) 15 L* D, Glucose 202 H, Calcium 8.1 L, Total Bilirubin 0.3, AST 53, ALT 29, Alkaline Phosphatase 83, Total Protein 5.9 L, Albumin 2.6 L, Globulin 3.3 H, Albumin/Globulin Ratio 0.8 L 07/28/20 05:07: POC Glucose 202 H I & O for Last 24 hours: Intake & Output 07/25/20 07/26/20 07/27/20 07/28/20 11:59 11:59 11:59 11:59 Intake Total 940 / 940 602.5 / 614.5 628.625 / 688.617 8389 / 1242 Output Total 2200 / 2200 2575 / 2605 1050 / 1097 380 / 380 Balance -1260 / -1260 -1972.5 / -1989.5 -421.375 / -348.375 862 / 862 Weight 220 lb 196 lb 10.437 oz 198 lb 6.656 oz 197 lb 1.492 oz Microbiology Reports for the Last 24 Hours: Microbiology 07/25/20 15:20 Anus CRE Surveillance Culture - Final 07/23/20 08:00 Nose - Nasal MRSA Culture - Final Negative Narrative: Patient is sedated on the ventilator. Lungs have fair aeration with diminished breath sounds and rhonchi on the right heard anteriorly and posteriorly. Heart has a regular rate and rhythm. Abdomen is soft and obese. Lower extremities have edema especially in the posterior aspect of the extremities. Assessment and Plan (1) Pneumonia due to COVID-19 virus Status: Acute Category: Medical Code(s): U07.1 - COVID-19; J12.82 - Pneumonia due to coronavirus disease 2019 (2) Respiratory failure with hypoxia Status: Acute Qualifiers: Chronicity: acute Qualified Code(s): J96.01 - Acute respiratory failure with hypoxia Category: Medical Code(s): J96.91 - Respiratory failure, unspecified with hypoxia (3) Coronary artery disease Status: Chronic Qualifiers: Coronary
[2020-07-28 06:29] LABS: Lymphocytes % 9 % (10-50); Macrocytosis 1+; Monocytes % 1 % (2-9); Neutrophils % 90 % (42-76); Platelet Estimate Normal; Total Cells Counted 100
[2020-07-28 07:17] LABS: ABG Base Excess -13.4 mmol/L (-2.4-2.3); ABG HCO3 14.8 mmhg (22.0-26.0); ABG Oxygen Saturation 99 % (90-100); ABG PCO2 39.1 mmhg (35.0-45.0); ABG PO2 158.5 mmhg (80-100)
[2020-07-28 07:18] LABS: Allen's Test Patient Unable; Oxygen 100 %; PEEP 12; Source Right Radial; Tidal Volume 440; Vent Rate 24
--- NOTE | 2020-07-28 07:35 | PC.NURSE ---
RT (Viri) reports that pH is 7.20. Informed Dr. Bethea.
[2020-07-28 09:19] LABS: Vancomycin,Trough 29.7 ug/mL (5.0-10.0)
--- NOTE | 2020-07-28 09:48 | HMH.PHACONS ---
- Pharmacy Consult Date: 07/28/20 Time: 09:48 Referring provider: DR. UP Reason for Consult:: VANCOMYCIN TROUGH LEVEL Allergies and ADEs:: Allergies Allergy/AdvReac Type Severity Reaction Status Date / Time No Known Allergies Allergy Verified 01/07/18 21:25 Home Medications:: Home Medications Medication Instructions Recorded Confirmed Type Cholecalciferol (Vitamin D3) 2,000 unit PO DAILY 01/07/18 07/22/20 History [Vitamin D3 1,000 Unit Cap] Labetalol HCl [Normodyne 100mg 200 mg PO BID 01/07/18 07/22/20 History tablet] Pravastatin Sodium [Pravachol] 40 mg PO DAILY 01/07/18 07/22/20 History allopurinoL [Allopurinol 300mg 300 mg PO DAILY 01/07/18 07/22/20 History tablet] Amlodipine Besylate [Norvasc 5mg 5 mg PO BID 07/16/20 07/22/20 History tablet] Bumetanide 1 mg PO BID 07/16/20 07/22/20 History Furosemide [Furosemide 20mg Tab*] 20 mg PO BID 07/16/20 07/23/20 History Valsartan [Valsartan 80mg 80 mg PO DAILY 07/16/20 07/22/20 History Tablets] Aspirin [Aspirin 81mg EC Tab] 81 mg PO DAILY 07/23/20 07/23/20 History Tramadol HCl [Tramadol 50mg 50 mg PO Q6HP PRN 07/23/20 07/23/20 History Tab] Height: 1.68 m Weight: 89.4 kg Laboratory Results:: Laboratory Results - last 24 hr 07/27/20 10:50: POC Glucose 206 H 07/27/20 16:15: POC Glucose 197 H 07/27/20 19:38: POC Glucose 194 H 07/28/20 04:20: Vancomycin Trough 29.7 H 07/28/20 04:20: WBC 21.6 H*, RBC 3.28 L, Hgb 10.6 L, Hct 35.4 L, MCV 107.9 H, MCH 32.5 H, MCHC 30.1 L, RDW 15.7, Plt Count 279, MPV 9.1, Neut % (Auto) 90.7 H, Lymph % (Auto) 2.9 L, [place] % (Auto) 6.3, Eos % (Auto) 0.0 L, Baso % (Auto) 0.2, Neut # (Auto) 19.6 H, Lymph # (Auto) 0.6 L, [place] # (Auto) 1.4 H, Eos # (Auto) 0.0, Baso # (Auto) 0.0, Total Counted 100, Neutrophils % (Manual) 90 H, Lymphocytes % (Manual) 9 L, Monocytes % (Manual) 1 L, Platelet Estimate Normal, Macrocytosis 1+ 07/28/20 04:20: Sodium 152 H*, Potassium 5.6 H, Chloride 123 H, Carbon Dioxide 18 L, Anion Gap 16.6 H, BUN 132 H* D, Creatinine 4.60 H D, Estimated Creat Clear 15, Estimated GFR 12 L*, Est GFR ( Amer) 15 L* D, Glucose 202 H, Calcium 8.1 L, Total Bilirubin 0.3, AST 53, ALT 29, Alkaline Phosphatase 83, Total Protein 5.9 L, Albumin 2.6 L, Globulin 3.3 H, Albumin/Globulin Ratio 0.8 L 07/28/20 05:07: POC Glucose 202 H 07/28/20 06:00: Specimen Source Right radial, O2 % 100, ABG pH 7.20 L*, ABG pCO2 39.1, ABG pO2 158.5 H, ABG HCO3 14.8 L, ABG Total CO2 16.0 L, ABG O2 Saturation 99, ABG Base Excess -13.4 L, Brannon Test Patient unable, Vent Rate 24, Tidal Volume 440, PEEP 12 Medical History: Reports:: Arrhythmia, Atherosclerotic Heart Disease, Coronary Artery Disease, Heart Murmur, Hyperlipidemia, Hypertension, Myocardial Infarction Denies:: Cancer, Diabetes Mellitus Type 1, Diabetes Mellitus Type 2, MRSA Assessment and Plan (1) Pneumonia due to COVID-19 virus Status: Acute Category: Medical Code(s): U07.1 - COVID-19; J12.82 - Pneumonia due to coronavirus disease 2019 (2) Respiratory failure with hypoxia Status: Acute Qualifiers: Chronicity: acute Qualified Code(s): J96.01 - Acute respiratory failure with hypoxia Category: Medical Code(s): J96.91 - Respiratory failure, unspecified with hypoxia (3) Coronary artery disease Status: Chronic Qualifiers: Coronary Disease-Associated Artery/Lesion type: [place] artery [place] vs. 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
--- NOTE | 2020-07-28 10:01 | PC.NURSE ---
Dr. Bethea @ [facility] and decreased FiO2 to 80%.
[2020-07-28 12:09] LABS: POC Glucose,Bedside 238 (70-110)
--- NOTE | 2020-07-28 12:21 | HMH.PULMPN ---
Internal Medicine - PN: Subj *Date: 07/28/20 *Time: 12:21 Interval history: No acute respiratory events overnight. Patient respiratory status remained critical and stable. Exam - Constitutional Constitutional:: no acute distress, comfortable - HENMT Exam HENMT: normocephalic, atraumatic - Neck Exam Neck:: thyroid normal, no lymphadenopathy - Respiratory Exam Comments: Bilateral diffuse coarse breath sounds unchanged from yesterday. Intubated and sedated. Appears comfortable. ET tube in position. - GI Exam GI:: soft, obese - Skin Exam Skin: warm - Neurological Exam Intubated and sedated. Appears comfortable. - Extremities Exam Extremities: no cyanosis, no clubbing, edema Assessment and Plan (1) Pneumonia due to COVID-19 virus Status: Acute Category: Medical Code(s): U07.1 - COVID-19; J12.82 - Pneumonia due to coronavirus disease 2019 (2) Respiratory failure with hypoxia Status: Acute Qualifiers: Chronicity: acute Qualified Code(s): J96.01 - Acute respiratory failure with hypoxia Category: Medical Code(s): J96.91 - Respiratory failure, unspecified with hypoxia (3) Coronary artery disease Status: Chronic Qualifiers: Coronary Disease-Associated Artery/Lesion type: [place] artery [place] vs. 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 Category: Medical Code(s): N18.32 - Chronic kidney disease, stage 3b (5) Encephalopathy due to 2019 novel coronavirus Status: Acute Category: Medical Code(s): U07.1 - COVID-19; G93.49 - Other encephalopathy (6) Encephalopathy Status: Acute Category: Medical Code(s): G93.40 - Encephalopathy, unspecified (7) Acute kidney injury Status: Acute Category: Medical Code(s): N17.9 - Acute kidney failure, unspecified (8) Hypernatremia Status: Acute Category: Medical Code(s): E87.0 - Hyperosmolality and hypernatremia - Assessment and plan all Dx Assessment and Plan for all problems:: #Acute hypoxic respiratory failure: #COVID-19 pneumonia: Patient recent diagnosed COVID-19 in early July and stayed in hospital for more than 2 days presented with worsening respiratory failure and chest x-ray showed worsening pulmonary infiltrates significantly worse in the right lung with involvement of whole right lung along with left lower lobe pulmonary infiltrates. CTA on admission did not show evidence of pulmonary emboli however showed bilateral diffuse pulmonary infiltrates. Patient on admission was initiated on cefepime and azithromycin were escalated to vancomycin given worsening leukocytosis. Patient respiratory status gradually worsened from patient being on Ventimask to high flow to eventually needing intubation and mechanical ventilation to maintain adequate oxygenation levels. Interval update: Patient respiratory status remained critical and stable since intubation. Patient remained on 100% FiO2. ABG this morning showed PO2 158.5 after increasing PEEP to 12 yesterday. Patient appeared to be volume overloaded today. Renal function worsening along with decreasing urine output. Patient hypernatremia also worsening and patient was started on D5 water at 75 ml/hr as per primary team. Given worsening acidosis likely metabolic given normal PCO2 on ABG will initiate the patient on bicarb drip 100 mEq per 1 L. Vancomycin was discontinued and patient completed 5-day course of azithromycin. Patient respiratory status remained critical with no improvement. This along with his worsening renal function and worsening metabolic acidosis make his prognosis guarded. Will monitor closely. Plan: - Continue mechanical ventilation wit
[2020-07-28 17:16] LABS: POC Glucose,Bedside 256 (70-110)
--- NOTE | 2020-07-28 18:33 | PC.NURSE ---
gastric residuals were 70mL @ 0800, 130mL @ 1200, and 120mL @ 1600.
[2020-07-28 23:45] LABS: POC Glucose,Bedside 253 (70-110)
[2020-07-29] VITALS (17 sets, daily range): BP systolic 58–102; BP diastolic 32–61; PULSE 37–100; RESP 4–26; TEMP 36.5–37.2; O2SAT 94–96; BMI 33.3
[2020-07-29 05:28] LABS: POC Glucose,Bedside 260 (70-110)
--- NOTE | 2020-07-29 06:00 | XR_ITS ---
PROCEDURE: XR CHEST PORTABLE CLINICAL HISTORY: intubated with pneumonia Follow-up pneumonia COMPARISON: CT CT ANGIO CHEST from 07/22/2020 CR XR CHEST PORTABLE from 07/27/2020 CR XR CHEST PORTABLE from 07/27/2020 CR XR CHEST PORTABLE from 07/28/2020 FINDINGS: There is cardiomegaly without failure. Prior CABG. The endotracheal to overlaps with the nasogastric to but appears to end at the T4 level well above the [place]. Nasogastric tube tip not visible but below the GE junction. Diffuse pneumonia noted on the right and may be slightly improved. Left lower lobe pneumonia unchanged. No evidence of pneumothorax. No acute bony abnormalities. IMPRESSION: Endotracheal tube and nasogastric tube in good position. Bilateral pneumonia which may be slightly improved on the right Dictated by: Brannon Mcdonald MD 07/29/2020 06:09 Brannon Mcdonald MD in [facility] 07/29/2020 06:09
[2020-07-29 07:15] LABS: ABG Base Excess -11.7 mmol/L (-2.4-2.3); ABG HCO3 16.1 mmhg (22.0-26.0); ABG Oxygen Saturation 96 % (90-100); ABG PCO2 40.6 mmhg (35.0-45.0); ABG PH 7.22 mmol/L (7.35-7.45); ABG PO2 86.7 mmhg (80-100); ABG TCO2 17.3 mmhg (23-27)
[2020-07-29 07:24] LABS: Allen's Test ACCEPTABLE; Oxygen 80 %; PEEP 12; Source R RADIAL; Tidal Volume 440; Vent Rate 24
[2020-07-29 07:31] LABS: Basophils % 0.1 % (0.1-2.0); Hematocrit 33.3 % (42.0-52.0); Hemoglobin 10.5 g/dL (14.1-18.0); Lymphocytes # 0.5 K/mm3 (0.7-4.5); Lymphocytes % 2.6 % (10-50); Mean Corpuscular HGB Conc 31.5 g/dL (31.8-35.4); Mean Corpuscular Hemoglobin 32.7 pg (27.0-31.2); Mean Corpuscular Volume 103.8 fl (80-94); Mean Platelet Volume 9.8 fl (7.4-10.4); Monocytes # 1.3 K/mm3 (0.1-1.0); Monocytes % 6.2 % (1.7-9.3); Neutrophils # 19.3 K/mm3 (1.8-7.8); Neutrophils % 91.1 % (37.0-80.0); Platelet Count 219 K/mm3 (142-424); Red Cell Distribution Width 15.7 % (11.5-17.5); White Blood Count 21.2 K/mm3 (4.8-10.8)
[2020-07-29 07:37] LABS: Albumin Level 2.4 g/dl (3.5-5.0); Albumin/Globulin Ratio 0.8 (1.1-1.8); Aspartate Amino Transferase 50 U/L (17-59); Bilirubin,Total 0.3 mg/dl (0.2-1.3); Calcium 7.8 mg/dl (8.4-10.2); Creatinine Clearance Estimated 12 mL/min (50-200); Estimated Glomerular Filt Rate 9 ml/min (>60); GFR (African American) 11 ML/MIN (>60); Globulin 3.1 g/dL (1.3-3.2); Potassium 5.8 mmoL/L (3.5-5.1); Sodium 144 mmol/L (136-145); Total Protein,Serum 5.5 g/dl (6.3-8.2)
[2020-07-29 07:54] LABS: Alanine Aminotransferase 22 U/L (12-78); Alkaline Phosphatase 82 U/L (38-126); Anion Gap 17.8 mEq/L (5-15); Carbon Dioxide 19 mmol/L (22.0-30.0); Chloride 113 mmol/L (98-107); Glucose 219 mg/dl (74-100)
--- NOTE | 2020-07-29 08:06 | HMH.ACPN2 ---
Internal Medicine - PN: Subj *Date: 07/29/20 *Time: 08:06 Interval history: Patient remains sedated and intubated. Nursing staff reports no changes in respiratory status overnight. Urine output has been between 15 and 20 mL/h. Exam Vital signs and Labs for Last 24 Hours: Temp Pulse Resp BP Pulse Ox 97.7 F 74 24 94/53 L 95 07/29/20 08:00 07/29/20 08:00 07/29/20 08:00 07/29/20 08:00 07/29/20 08:00 Laboratory Results - last 24 hr 07/28/20 04:20: Vancomycin Trough 29.7 H 07/28/20 11:55: POC Glucose 238 H 07/28/20 17:07: POC Glucose 256 H 07/28/20 23:25: POC Glucose 253 H 07/29/20 05:15: POC Glucose 260 H 07/29/20 06:00: Specimen Source R radial, O2 % 80, ABG pH 7.22 L*, ABG pCO2 40.6, ABG pO2 86.7, ABG HCO3 16.1 L, ABG Total CO2 17.3 L, ABG O2 Saturation 96, ABG Base Excess -11.7 L, Brannon Test Acceptable, Vent Rate 24, Tidal Volume 440, PEEP 12 I & O for Last 24 hours: Intake & Output 07/26/20 07/27/20 07/28/20 07/29/20 11:59 11:59 11:59 11:59 Intake Total 602.5 / 614.5 628.625 / 703.495 6403 / 1482 4772 / 4772 Output Total 2575 / 2605 1050 / 1097 439 / 454 559 / 559 Balance -1972.5 / -1990.5 -421.375 / -348.375 923 / 1028 4213 / 4213 Weight 196 lb 10.437 oz 198 lb 6.656 oz 197 lb 1.492 oz 207 lb 3.752 oz Microbiology Reports for the Last 24 Hours: Microbiology 07/25/20 15:20 Sputum - Endotracheal Tube Aspirate Gram Stain - Final 07/25/20 15:20 Sputum - Endotracheal Tube Aspirate Sputum Culture - Final NO GROWTH AFTER 48 HOURS Narrative: Patient appears comfortable and is not overbreathing the vent. Review of I's and O's and weight reveals positive fluid balance over the last 24 hours with a 10 pound weight gain. Breath sounds are distant and diminished in the right lateral lung and posterior lung. Heart has a regular rate and rhythm. Abdomen is obese and soft. Patient does have edema of his lower extremities. Assessment and Plan (1) Pneumonia due to COVID-19 virus Status: Acute Category: Medical Code(s): U07.1 - COVID-19; J12.82 - Pneumonia due to coronavirus disease 2019 (2) Respiratory failure with hypoxia Status: Acute Qualifiers: Chronicity: acute Qualified Code(s): J96.01 - Acute respiratory failure with hypoxia Category: Medical Code(s): J96.91 - Respiratory failure, unspecified with hypoxia (3) Coronary artery disease Status: Chronic Qualifiers: Coronary Disease-Associated Artery/Lesion type: [place] artery [place] vs. transplanted heart: [place] heart Associated angina: without angina Qualified Code(s): I25.10 - Atherosclerotic heart disease of [place] coronary artery without angina pectoris Category: Medical Code(s): I25.10 - Atherosclerotic heart disease of [place] coronary artery without angina pectoris (4) 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 Category: Medical Code(s): N18.32 - Chronic kidney disease, stage 3b (5) Encephalopathy due to 2019 novel coronavirus Status: Acute Category: Medical Code(s): U07.1 - COVID-19; G93.49 - Other encephalopathy (6) Encephalopathy Status: Acute Category: Medical Code(s): G93.40 - Encephalopathy, unspecified (7) Acute kidney injury Status: Acute Category: Medical Code(s): N17.9 - Acute kidney failure, unspecified (8) Hypernatremia Status: Acute Category: Medical Code(s): E87.0 - Hyperosmolality and hypernatremia - Assessment and plan all Dx Assessment and Plan for all problems:: 1. From a pulmonary standpoint patient is stable and x-ray has showed some slight improvement in the right sided pneumonia. Continue dexamethasone and remdesivir. 2. Continue tube feeds 3. Acute kidney injury is worsening. Will consider administration of high-dose IV Lasix but will wait until evaluation by Dr. Diamond this morning. I will also reach out to family regarding possibility of dialysis if patient does not respond to patient a
[2020-07-29 08:10] LABS: MANUAL DIFFERENTIAL MANUAL DIFFERENTIAL (MANUAL DIFF)
[2020-07-29 09:01] LABS: Lymphocytes % 2 % (10-50); Monocytes % 5 % (2-9); Neutrophils % 93 % (42-76); Total Cells Counted 100
[2020-07-29 09:04] LABS: Macrocytosis 1+; Platelet Estimate Normal
--- NOTE | 2020-07-29 09:32 | PC.NURSE ---
At 0806 Critical lab results on this pt were received by myself. BUN 162 crea 6.10. primary RN Taj Nettles was notified at 0808, and Dr Ludwig was then notified by Dima at 0809.
[2020-07-29 09:34] LABS: Blood Urea Nitrogen 162 mg/dl (9-20)
--- NOTE | 2020-07-29 11:46 | HMH.PULMPN ---
Internal Medicine - PN: Subj *Date: 07/29/20 *Time: 11:46 Interval history: Patient respiratory status remained stable and critical. Renal function worsening with worsening creatinine and decreasing urine output. Exam - Constitutional Constitutional:: no acute distress, comfortable - HENMT Exam HENMT: normocephalic, atraumatic - Eye Exam Eyes:: eyelids normal, normal conjunctiva - Neck Exam Neck:: thyroid normal, no lymphadenopathy - Respiratory Exam Respiratory:: bibailar crackels heard Comments: Bilateral coarse worsening breath sounds from yesterday. - Cardiovascular Exam Cardiac:: S1, S2 - GI Exam GI:: soft, obese - Skin Exam Skin: warm, no rash - Neurological Exam Intubated and sedated. Appears comfortable. - Extremities Exam Extremities: no cyanosis, no clubbing, edema Assessment and Plan (1) Pneumonia due to COVID-19 virus Status: Acute Category: Medical Code(s): U07.1 - COVID-19; J12.82 - Pneumonia due to coronavirus disease 2019 (2) Respiratory failure with hypoxia Status: Acute Qualifiers: Chronicity: acute Qualified Code(s): J96.01 - Acute respiratory failure with hypoxia Category: Medical Code(s): J96.91 - Respiratory failure, unspecified with hypoxia (3) Coronary artery disease Status: Chronic Qualifiers: Coronary Disease-Associated Artery/Lesion type: [place] artery [place] vs. transplanted heart: [place] heart Associated angina: without angina Qualified Code(s): I25.10 - Atherosclerotic heart disease of [place] coronary artery without angina pectoris Category: Medical Code(s): I25.10 - Atherosclerotic heart disease of [place] coronary artery without angina pectoris (4) 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 Category: Medical Code(s): N18.32 - Chronic kidney disease, stage 3b (5) Encephalopathy due to 2019 novel coronavirus Status: Acute Category: Medical Code(s): U07.1 - COVID-19; G93.49 - Other encephalopathy (6) Encephalopathy Status: Acute Category: Medical Code(s): G93.40 - Encephalopathy, unspecified (7) Acute kidney injury Status: Acute Category: Medical Code(s): N17.9 - Acute kidney failure, unspecified (8) Hypernatremia Status: Acute Category: Medical Code(s): E87.0 - Hyperosmolality and hypernatremia - Assessment and plan all Dx Assessment and Plan for all problems:: #Acute hypoxic respiratory failure: #COVID-19 pneumonia: Patient recent diagnosed COVID-19 in early July and stayed in hospital for more than 2 days presented with worsening respiratory failure and chest x-ray showed worsening pulmonary infiltrates significantly worse in the right lung with involvement of whole right lung along with left lower lobe pulmonary infiltrates. CTA on admission did not show evidence of pulmonary emboli however showed bilateral diffuse pulmonary infiltrates. Patient on admission was initiated on cefepime and azithromycin were escalated to vancomycin given worsening leukocytosis. Patient respiratory status gradually worsened from patient being on Ventimask to high flow to eventually needing intubation and mechanical ventilation to maintain adequate oxygenation levels. Interval update: Patient respiratory status remained critical and stable since intubation. ABG this morning showed slightly worsening hypoxia from yesterday with a PO2 decreased from 158 to 86. ABG Showed persistent metabolic acidosis. Chest x-ray showed worsening volume status. Renal function with worsening with creatinine increased to 6.1 along with worsening hyperkalemia. Urine output also declining. Patient also started on bicarb drip yesterday. Primary team has discussions with the family regarding the possibility of transferring the patient for dialysis, however patient family wants to pursue comfort care. Plan: - Follow with family/POA wishes regarding the patient's care / code status as per primary team's recommendations - Brenda
--- NOTE | 2020-07-29 14:48 | PC.NURSE ---
1435- Patient terminally extubated at this time. Given morphine for comfort.
--- NOTE | 2020-07-29 15:31 | HMH.DEATH ---
Pronouncement Note - Date and Time of Date of : 07/29/20 Time of : 15:19 - Additional Data Confirmation of : no pulse, no respirations, no heart sounds, pupils fixed and dilated Family: not available Attending physician: Andriy Ludwig MD Was code activated?: No
--- NOTE | 2020-07-29 15:31 | PC.NURSE ---
1524- Patient , Dr Smith at bedside to pronounce time of 1530- [facility] contacted, spoke with Marc Joshi, patient ruled out for donation, case # [id number]
--- NOTE | 2020-07-30 16:19 | HMH.DCSUM ---
General - General Admission date:: 07/22/20 Discharge date: 07/29/20 HPI HPI: 84-year-old male with recent diagnosis of COVID-19 infection and was hospitalized in this facility from July 16 through July 19 presented to the emergency department via EMS after increasing shortness of breath at home. Patient was wearing oxygen when he was found by EMS with O2 sats of 88%. He was transported to the ER where O2 sats dropped and patient was ultimately placed on a Ventimask to keep O2 sats greater than 90. He has been admitted to the special care unit. Patient reports shortness of breath worsening almost immediately upon leaving the hospital although his mental status has not been at baseline on this admission so far. Patient has been admitted and placed on Remdesivir and dexamethasone. Patient had originally presented to the emergency department for the first time on July 11 with some mild GI complaints and I do suspect this was the beginning of his Covid illness. During his recent hospitalization he was discharged home with oxygen set at 3 L/min via nasal cannula. Prior to discharge patient had maintained O2 sats in the low 90s on supplemental oxygen. Pneumonia had been identified on chest x-ray associated with his first admission Hospital Course Hospital Course: Patient was admitted on the with worsening respiratory failure due to COVID-19 pneumonia. Upon admission due to elevated white blood cell count patient was started on broad-spectrum antibiotics in addition to remdesivir, dexamethasone, nutritional supplementation. Patient was unable to maintain O2 sats with nasal cannula and patient was placed on a Ventimask shortly after admission. This Patient's O2 sats in the mid 90s. Patient was lucid on admission but within 48 hours began to show signs of mental status changes. Patient developed mild increased work of breathing. Pulmonology service was consulted on admission. By July 25 patient's respiratory failure had worsened and in addition to this because of changes in mental status caring for the patient was proving increasingly difficult. Patient was combative with staff and frequently removed his oxygen. Because of this decision was made to proceed with intubation and mechanical ventilation of the patient. Patient was intubated and pulmonology service directed management of the ventilator. Patient remained stable on the ventilator while sedated with fentanyl and Versed. Regarding his Covid pneumonia while on the ventilator patient's pneumonia remained stable and as the week progressed slight reduction in FiO2 was able to be made. Patient remained sedated during the remainder of hospitalization. Leukocytosis remained significant and patient remained on broad-spectrum antibiotics. Blood and sputum cultures were negative. Patient had been on vancomycin throughout hospitalization but this was discontinued once MRSA swab was negative. Patient had hyperglycemia from use of steroids. Patient refused insulin injections when he was lucid but once patient was intubated patient was given sliding scale insulin as needed. NG tube was placed and patient was started on tube feeds with recommendations made by private sector executive. Patient remained on tube feeds remainder of hospitalization until life support was withdrawn Patient developed acute kidney injury during hospitalization. Nephrotoxic medications were discontinued but creatinine and BUN continued to worsen. Acute kidney injury progressed to the point were discussion was had regarding transfer to a facility where dialysis would be an option. It was at this point a long discussion was had with the patient's . We discussed his advanced directive in detail. Patient's place great emphasis on the patient's quality of life should he survive this illness. The spoke with the patient's daughter. After long discussion via several phone calls regarding the benefits of transfe
== END 2020-07-29 17:35 | disposition expired | DRG 207 ==
LOC: ER 14:36 → ICU 14:45
PROVIDERS: Internal Medicine Pulmonary Disease; Admitting Provider Family Medicine; Emergency Provider Emergency Medicine; PCP Family Medicine; Visit Provider Family Medicine
DX: U07.1 COVID-19 (principal); J12.82 Pneumonia due to coronavirus disease 2019; J96.01 Acute respiratory failure with hypoxia; N17.9 Acute kidney failure, unspecified; E87.0 Hyperosmolality and hypernatremia; G93.49 Other encephalopathy; N18.32 Chronic kidney disease, stage 3b; I12.9 Hypertensive chronic kidney disease with stage 1 through stage 4 chronic kidney disease, or unspecified chronic kidney disease; I25.2 Old myocardial infarction; I25.10 Atherosclerotic heart disease of native coronary artery without angina pectoris; Z95.1 Presence of aortocoronary bypass graft; Z95.5 Presence of coronary angioplasty implant and graft; Z79.899 Other long term (current) drug therapy; Z79.82 Long term (current) use of aspirin; Z87.891 Personal history of nicotine dependence
CPT/HCPCS: 31500; 94002; 71045; 71275; 80048; 80053; 80202; 82803; 82962; 84145; 84484; 85007; 85025; 85378; 87070; 87081; 87205; 93005; 93308; 94003; 94640; 94760; 94761; 96365; 96375; 99284; J0456; J0692; J1956; J3370; Q9967